=== PATIENT | male | born 1975 | race Caucasian/White ===

== ENCOUNTER 2017-01-18 19:27 | Inpatient (IN) | payer BC ==
[~2017-01-18] VITALS: Ht 180.3 cm; Wt 69.5 kg
[~2017-01-18 19:27] MED LIST: BNC20 PO; DYZ PO; METO1TAB69 PO; POTA10CA28 PO
[2017-01-18] MEDS ORDERED: SODIUM CHLORIDE 0.9% 1000ML 1,000 ML IV STA ×2 (20:18→20:27)
[2017-01-18 20:59] LABS: COMPLETE YES; EOS % 0.2 %; HEMATOCRIT 30.7 % (42-52); IG% 0.2 %; LYMPH % 14.3 %; LYMPH ABS # 0.74 K/uL (1.2-3.4); MEAN CORPUSCULAR HEMOGLOBIN 34.4 pg (25-34); MEAN CORPUSCULAR HGB CONC 36.2 g/dl (32-36); MEAN PLATELET VOLUME 10.8 fL (7.4-10.4); MONO % 10.8 %; NEUT % 74.5 %; PLATELET COUNT 126 K/uL (130-400); RED BLOOD COUNT 3.23 M/uL (4.7-6.1); WHITE BLOOD COUNT 5.19 K/uL (4.8-10.8)
[2017-01-18 21:19] LABS: BUN/CREATININE RATIO 12.3 (10-20); CALCIUM 8.2 mg/dl (8.5-10.1); CREATININE 0.82 mg/dl (0.60-1.40); POTASSIUM 3.3 mmol/L (3.5-5.1)
[2017-01-18] MEDS ORDERED: DIPH25CA65 PO (21:19)
[2017-01-18] MEDS ORDERED: SIMV20TA2 PO (21:19)
[2017-01-18] MEDS ORDERED: LABE1TAB28 PO (21:19)
[2017-01-18] MEDS ORDERED: OLME40TA33 PO (21:19)
[2017-01-18] MEDS ORDERED: LORA-741 PO (21:19)
[2017-01-18] MEDS ORDERED: LORAZEPAM 2 MG/ML 1 ML VIAL IV STA (22:10)
[2017-01-18] MEDS ORDERED: ZOLPIDEM TARTRATE 5 MG TAB PO PRN (22:15)
[2017-01-18] MEDS ORDERED: POTASSIUM CITRATE 10 MEQ TAB PO ONE (22:15)
[2017-01-18] MEDS ORDERED: ONDANSETRON INJ 2 MG/ML 2 ML VIAL IV PRN (22:15)
[2017-01-18] MEDS ORDERED: LORAZEPAM 2 MG/ML 1 ML VIAL IV PRN (22:15)
[2017-01-18] MEDS ORDERED: ALUMINUM/MAGNESIUM/SIMETH (MAALOX MAX) 30 ML UDC PO PRN (22:15)
[2017-01-18] MEDS ORDERED: METOPROLOL TARTRATE 1 MG/ML VIAL IV PRN (22:15)
[2017-01-18] MEDS ORDERED: THIAMINE HCL 100 MG TAB PO ONE (22:30)
--- NOTE | 2017-01-18 22:47 | History and Physical ---
History & Physical Date & Time of Service: Jan 18, 2017 at 22:29 Chief Complaint: Fainting, Dr Referred For Iv Fluids Primary Care Physician: No Doctor, Assigned History of Present Illness Source: patient, family This is a 41 yo m with a history of HTN and alcohol abuse that is presenting to the ED with presyncopal episodes upon standing x 2 weeks and N&V x 1 week. 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 He notes that when he typically is under stress he stops eating and drinking completely and will only drink beer. He states that he normally drinks 5-6 beers in a day however since this stress started he has been drinking 10+ beers/ day. Over the past two weeks he has been having almost daily presyncopal episodes in particularly when he is getting up out of bed. He had two while at work and the second was noticed by his boss and he was told to be cleared from a physician to work before he could return to work. He went to the PCP today where lab work was done and as his blood pressure was low , they decreased his bp medications. He was contacted by the PCP when labs returned as they reflected hyponatremia and transaminitis and he was told to go to the ED for further evaluation. In the ED he was evaluated and found to be critically hyponatremic, thrombocytopenic and anemic. He was started on NSS @ 125cc/h in the ED. He currently denies any pain in his abdomen and Nausea has subsided with ondansetron. He denies ever having any chest pain or palpitations with the presyncopal episodes. He denies any change in urine or bowel habits nor any blood in his stool. Past Medical/Surgical History Medical Problems: (1) Hypertension Status: Chronic Family History Cancer Heart disease Hypertension Kidney disease Kidney stones Social History Smoking Status: Never Smoker Smokeless Tobacco Use: No Alcohol Use: heavy Drug Use: none Marital Status: Housing status: lives with family Occupational Status: employed Multi-Drug Resistant Organisms History of MDRO: No Allergies Coded Allergies: No Known Allergies (Unverified , 01/18/17) Home Medications Scheduled Labetalol (Normodyne), 0.5 TAB PO BID Lorazepam (Ativan), 0.5 MG PO PRN Olmesartan Medoxomil (Olmesartan Medoxomil), 1 TAB PO DAILY Simvastatin (Zocor), 20 MG PO QPM Scheduled PRN Diphenhydramine Hcl (Benadryl Allergy), 1-2 CAP PO HS PRN for Sleep Review of Systems Constitutional: No fever Eyes: No worsening of vision ENT: No hearing loss Respiratory: No cough, No sputum, No wheezing, No shortness of breath, No dyspnea on exertion, No dyspnea at rest Cardiovascular: No chest pain, No palpitations Abdomen: + nausea, + vomiting, No pain, No diarrhea, No constipation, No GI bleeding Musculoskeletal: No joint pain, No muscle pain Genitourinary - Male: No hematuria, No dysuria Neurologic: + weakness, + problem reported (presyncope/ dizziness), No numbness /tingling, No balance problems Psychiatric: No depression symptoms Endocrine: + fatigue Hematologic / Lymphatic: No abnormal bleeding/bruising Integumentary: No rash Physical Exam Vital Signs Date Time Temp Pulse Resp B/P (MAP) Pulse Ox O2 Delivery O2 Flow Rate FiO2 01/18/17 19:38 37.0 100 18 103/61 95 Room Air General Appearance: no apparent distress, + thin Head: normocephalic, atraumatic Eyes: normal inspection, + pertinent finding (erythematous conjunctiva) ENT: normal ENT inspection Neck: supple Respiratory/Chest: normal breath sounds, no respiratory distress, no accessory muscle use Cardiovascular: regular rate, rhythm, no murmur, normal peripheral pulses Abdomen/GI: normal bowel sounds, non tender, soft Back: normal inspection, no CVA tenderness Extremities/Musculoskelatal: normal inspection, no calf tenderness, no pedal edema, normal range of motion Neurologic/Psych: alert, normal mood/affect, oriented x 3 Skin: normal color, warm/dry, no rash Lymphatic: no adenopathy Diagnostics Laboratory Results Results Past 24 Hours Test 01/18/17 20:38 01/18/17 22:00 01/18/17 22:07 01/18/17 22:11 Range/Units White Blood Count 5.19 4.8-10.8 K/uL Red Blood Count 3.23 4.7-6.1 M/uL Hemoglobin 11.1 14.0-18.0 g/dL Hematocrit 30.7 42-52 % Mean Corpuscular Volume 95.0 80-100 fL Mean Corpuscular Hemoglobin 34.4 25-34 pg Mean Corpuscular Hemoglobin Concent 36.2 32-36 g/dl Platelet Count 126 130-400 K/uL Mean Platelet Volume 10.8 7.4-10.4 fL Neutrophils (%) (Auto) 74.5 % Lymphocytes (%) (Auto) 14.3 % Monocytes (%) (Auto) 10.8 % Eosinophils (%) (Auto) 0.2 % Basophils (%) (Auto) 0.0 % Neutrophils # (Auto) 3.87 1.4-6.5 K/uL Lymphocytes # (Auto) 0.74 1.2-3.4 K/uL Monocytes # (Auto) 0.56 0.11-0.59 K/uL Eosinophils # (Auto) 0.01 0-0.5 K/uL Basophils # (Auto) 0.00 0-0.2 K/uL RDW Standard Deviation 42.2 36.4-46.3 fL RDW Coefficient of Variation 12.2 11.5-14.5 % Immature Granulocyte % (Auto) 0.2 % Immature Granulocyte # (Auto) 0.01 0.00-0.02 K/uL Sodium Level 114 136-145 mmol/L Potassium Level 3.3 3.5-5.1 mmol/L Chloride Level 72 98-107 mmol/L Carbon Dioxide Level 28 21-32 mmol/L Anion Gap 13.0 3-11 mmol/L Blood Urea Nitrogen 10 7-18 mg/dl Creatinine 0.82 0.60-1.40 mg/dl Est Creatinine Clear Calc Drug Dose 120.8 ml/min Estimated GFR () 129.1 Estimated GFR (Non- 111.4 BUN/Creatinine Ratio 12.3 10-20 Random Glucose 108 70-99 mg/dl Osmolality 279 280-300 mOsm/kg Calcium Level 8.2 8.5-10.1 mg/dl Total Bilirubin 2.6 0.2-1 mg/dl Direct Bilirubin 1.7 0-0.2 mg/dl Aspartate Amino Transf (AST/SGOT) 423 15-37 U/L Alanine Aminotransferase (ALT/SGPT) 211 12-78 U/L Alkaline Phosphatase 172 45-117 U/L Total Protein 7.7 6.4-8.2 gm/dl Albumin 3.2 3.4-5.0 gm/dl Ethyl Alcohol mg/dL 160.0 0-3 mg/dl Test 01/18/17 22:13 01/18/17 22:27 Range/Units Impression Assessment and Plan This is a 41 yo m that is suffering from hyponatremia and presyncopal episodes most likely secondary to potomania Hyponatremia secondary to potomania vs dehydration - will change fluids to D5NSS @ 100cc/h considering the patient's history of alcohol use - BMP q3h until sodium is 120 and then increase interval to q8h until WNL - tele admission Presyncopal episodes - cardiac vs dehydration - tele admission to assess for potential arrhythmias - ekg - IVF as above Hypokalemia secondary to N&V - supplemented with 40 meq in ED - will recheck with BMP - also ordered phosphorous and magnesium as this can be depleted with chronic alcohol use/dehydration Anemia secondary to vitamin def vs acute blood loss - most likely secondary to vit def; check folate, Vit B12 and iron levels - Hemoccult to r/o GI source Thrombocytopenia most likely secondary to chronic alcohol use - will follow however this may very well be chronic in nature Transaminitis secondary to alcohol use - AST> ALT which is reflective of alcohol use - if improvement with cessation of alcohol will defer imaging - consider USG if no improvement - Hepatitis panel to r/o Alcohol abuse - thiamine and folate in ED PO - Daily banana bag - alcohol withdrawal protocol HTN - for now will hold labetalol and Benicar - Metoprolol 5 mg IV for HR > 120 and systolic > 180 DVT prophylaxis - in light of thrombocytopenia will hold chemical prophylaxis, SCD Resident Physician Supervision Note: I was present with Dr. Asher during the history and exam. I discussed the case with the resident and agree with the findings and plan as documented in the note. Any exceptions or clarifications are listed here: 41 y/o M Hx ETOH abuse - presented with N/V and near-syncope Had not ingested food for several days - does admit to approx 10 beers qdaily Several lab abnormalities on arrival inc hypoK and an Na of 114 OE AAO x 3 S1,2 R CTAB NT, ND No CCE P: IVF - trend BMP ETOH withdrawal protocol will need cessation counseling We will monitor on telemetry considering near syncope and sever hypoNa Above discussed with pt and resident Documented By: Ezequiel Ennis Level of Care Telemetry Resuscitation Status FULL RESUSCITATION VTE Prophylaxis VTE Risk Assessment Done? Y/N: Yes Risk Level: Moderate Given or contraindicated: SCD's Social Service Consult None Apply Additional Copies To Ruben Zhang M.D.
[2017-01-18 23:16] VITALS: BP 124/81; PULSE 87; TEMP 37; O2SAT 97; Ht 180.3 cm; Wt 69.5 kg
--- NOTE | 2017-01-18 23:16 | EMERGENCY ROOM VISIT NOTE ---
History Report prepared by Nevin: Allyssa Snell Under the Supervision of: Dr. Gonzalo Reyez D.O. First contact with patient: 20:13 Chief Complaint: SYNCOPE Stated Complaint: FAINTING, DR REFERRED FOR IV FLUIDS Nursing Triage Summary: Pt reports 3 episodes of near syncope. Lack of apetite, vmoiting, dizziness. seen at [facility] office today, had bloodwork. showed "electrolytes off and dehydration". Hx ETOH. reports a couple beers History of Present Illness The patient is a 41 year old male who presents to the Emergency Room with complaints of persistent lightheadedness and dizziness that began a week and a half ago. The patient states that recently he has had a lack of appetite and a decrease in fluid intake. He states that he recently has been stressed at work. The patient states that this morning he had blood work done at his PCP's office. The patient's states that the patient's blood work revealed dehydration and electrolyte abnormalities. She additionally notes that the patient had a normal EKG performed. The patient's states that the patient has a history of hypertension, but notes that the patient was found to be hypotensive today at his PCP's office. She states that the patient has had multiple near syncopal episodes over the last week and a half and states that he cannot go back to work until he has clearance from a doctor. The patient states that he drinks approximately 2-6 alcohol beverages daily. He additionally reports vomiting intermittently over the past several days. Source of History: patient, spouse/significant other () Onset: week and a half ago Position: other (global) Quality: other (lightheadedness and dizziness) Timing: other (persistent) Associated Symptoms: + vomiting Note: Associated Symptoms: near syncopal episodes Review of Systems See HPI for pertinent positives & negatives. A total of 10 systems reviewed and were otherwise negative. Past Medical & Surgical Medical Problems: (1) Hypertension (2) Hypokalemia (3) Hyponatremia Family History Cancer Heart disease Hypertension Kidney disease Kidney stones Social History Smoking Status: Never Smoker Smokeless Tobacco Use: Yes Alcohol Use: heavy Marital Status: Housing Status: lives with family Occupation Status: employed Current/Historical Medications Scheduled Labetalol (Normodyne), 0.5 TAB PO BID Lorazepam (Ativan), 0.5 MG PO PRN Olmesartan Medoxomil (Olmesartan Medoxomil), 1 TAB PO DAILY Simvastatin (Zocor), 20 MG PO QPM Scheduled PRN Diphenhydramine Hcl (Benadryl Allergy), 1-2 CAP PO HS PRN for Sleep Allergies Coded Allergies: No Known Allergies (Unverified , 01/18/17) Physical Exam Vital Signs Date Time Temp Pulse Resp B/P (MAP) Pulse Ox O2 Delivery O2 Flow Rate FiO2 01/18/17 22:23 101 18 131/87 98 Room Air 01/18/17 19:38 37.0 100 18 103/61 95 Room Air Physical Exam CONSTITUTIONAL/VITAL SIGNS: Reviewed / noted above. GENERAL: Non-toxic in appearance. INTEGUMENTARY: Warm, dry, and [place]. HEAD: Normocephalic. EYES: without scleral icterus or trauma. ENT/OROPHARYNX: clear and moist. LYMPHADENOPATHY/NECK: Is supple without lymphadenopathy or meningismus. RESPIRATORY: Lungs clear and equal. CARDIOVASCULAR: Regular rate and rhythm. GI/ABDOMEN: Soft and nontender. No organomegaly or pulsatile mass. No rebound or guarding. Normal bowel sounds. EXTREMITIES: Warm and well perfused. BACK: No CVA tenderness. NEUROLOGICAL: Intact without focal deficits. PSYCHIATRIC: normal affect. MUSCULOSKELETAL: Normally developed with good muscle tone. Medical Decision & Procedures Laboratory Results 01/18/17 20:38 Red Blood Count 3.23, Mean Corpuscular Volume 95.0, Mean Corpuscular Hemoglobin 34.4, Mean Corpuscular Hemoglobin Concent 36.2, Mean Platelet Volume 10.8, Neutrophils (%) (Auto) 74.5, Lymphocytes (%) (Auto) 14.3, Monocytes (%) (Auto) 10.8, Eosinophils (%) (Auto) 0.2, Basophils (%) (Auto) 0.0, Neutrophils # (Auto ) 3.87, Lymphocytes # (Auto) 0.74, Monocytes # (Auto) 0.56, Eosinophils # (Auto ) 0.01, Basophils # (Auto) 0.00 01/18/17 20:38 Test 01/18/17 20:38 01/18/17 22:46 01/18/17 22:53 White Blood Count 5.19 K/uL (4.8-10.8) Red Blood Count 3.23 M/uL (4.7-6.1) Hemoglobin 11.1 g/dL (14.0-18.0) Hematocrit 30.7 % (42-52) Mean Corpuscular Volume 95.0 fL (80-100) Mean Corpuscular Hemoglobin 34.4 pg (25-34) Mean Corpuscular Hemoglobin Concent 36.2 g/dl (32-36) Platelet Count 126 K/uL (130-400) Mean Platelet Volume 10.8 fL (7.4-10.4) Neutrophils (%) (Auto) 74.5 % Lymphocytes (%) (Auto) 14.3 % Monocytes (%) (Auto) 10.8 % Eosinophils (%) (Auto) 0.2 % Basophils (%) (Auto) 0.0 % Neutrophils # (Auto) 3.87 K/uL (1.4-6.5) Lymphocytes # (Auto) 0.74 K/uL (1.2-3.4) Monocytes # (Auto) 0.56 K/uL (0.11-0.59) Eosinophils # (Auto) 0.01 K/uL (0-0.5) Basophils # (Auto) 0.00 K/uL (0-0.2) RDW Standard Deviation 42.2 fL (36.4-46.3) RDW Coefficient of Variation 12.2 % (11.5-14.5) Immature Granulocyte % (Auto) 0.2 % Immature Granulocyte # (Auto) 0.01 K/uL (0.00-0.02) Anion Gap 13.0 mmol/L (3-11) Est Creatinine Clear Calc Drug Dose 120.8 ml/min Estimated GFR () 129.1 Estimated GFR (Non- 111.4 BUN/Creatinine Ratio 12.3 (10-20) Osmolality 279 mOsm/kg (280-300) Calcium Level 8.2 mg/dl (8.5-10.1) Total Bilirubin 2.6 mg/dl (0.2-1) Direct Bilirubin 1.7 mg/dl (0-0.2) Aspartate Amino Transf (AST/SGOT) 423 U/L (15-37) Alanine Aminotransferase (ALT/SGPT) 211 U/L (12-78) Alkaline Phosphatase 172 U/L (45-117) Total Protein 7.7 gm/dl (6.4-8.2) Albumin 3.2 gm/dl (3.4-5.0) Ethyl Alcohol mg/dL 160.0 mg/dl (0-3) Laboratory results as stated above per my review. Medications Administered Medications (Trade) Dose Ordered Sig/Bety Route Start Time Stop Time Status Last Admin Dose Admin Sodium Chloride 1,000 ml @ 125 mls/hr Q8H STAT IV 01/18/17 20:27 01/19/17 04:26 01/18/17 20:50 125 MLS/HR Lorazepam (Ativan Inj) 1 mg NOW STAT IV 01/18/17 22:10 01/18/17 22:11 DC 01/18/17 22:21 1 MG Potassium Citrate (Urocit-K Tab) 40 meq NOW ONCE PO 01/18/17 22:15 01/18/17 22:34 DC 01/18/17 22:54 40 MEQ Thiamine HCl (Vitamin B-1 Tab) 100 mg NOW ONCE PO 01/18/17 22:30 01/18/17 22:34 DC 01/18/17 22:53 100 MG ED Course 2012: Previous medical records were reviewed. The patient was evaluated in room B2. A complete history and physical examination was performed. 2026: Ordered Sodium Chloride 1000 ml @ 125 mls/hr IV. 2136: I discussed the patients case with SILVIA Wylie. He is going to evaluate the patient for further treatment. 2149: I reevaluated the patient and he is doing well. I discussed the exam findings with him and I discussed the treatment plan. He verbalized complete understanding and agreement. He will be evaluated for further treatment. Medical Decision Differentials include: Acute coronary syndrome, myocardial infarction, CVA, TIA , anemia, infection, pneumonia, UTI, pyelonephritis, poor nutrition, dehydration , electrolyte disturbance, and hypoglycemia. Medication Reconciliation: I attest that I have personally reviewed the patient' s current medication list. Blood pressure Screening: Patient was found to have normal blood pressure on screening and does not require follow-up. This is a 41-year-old male who presents to the ED with a chief complaint of abnormal labs. The patient had some outpatient laboratory studies today that really revealed hyponatremia and dehydration, per the patient. The patient reports that he is been under a lot of stress at work recently. Over the past couple of weeks, he has not been eating or drinking much. He has been consuming alcohol. He states that he drinks between 2 and 6 beers per day. The patient also has been recently intermittently vomiting over the past 4 days. He has become lightheaded and passing out over the past few days as well. His vital signs are normal. His physical exam does not reveal any obvious abnormalities. Laboratory studies reveal potassium of 3.3. His sodium is 114. LFTs are slightly elevated. This is likely related to alcohol consumption. The patient's CBC was unremarkable. Blood alcohol level is 160. The patient was treated with normal saline 150 mL per hour. He was given some IV Ativan for a little anxiety/possibly withdrawal. I spoke with the hospitalist, who will see the patient for further inpatient evaluation and care.. Consults Time Called: 2135 Consulting Physician: SILVIA Wylie Returned Call: [phone] I discussed the patients case with SILVIA Wylie. He is going to evaluate the patient for further treatment. Impression Primary Impression: Hyponatremia Additional Impressions: Transaminitis Alcohol abuse Scribe Attestation The scribe's documentation has been prepared under my direction and personally reviewed by me in its entirety. I confirm that the note above accurately reflects all work, treatment, procedures, and medical decision making performed by me. Departure Information Dispostion Being Evaluated By Hospitalist Problem Qualifiers
[2017-01-18 23:19] LABS: PARTIAL THROMBOPLASTIN RATIO 1.1; PROTHROMBIN TIME (PATIENT) 11.1 SECONDS (9.0-12.0)
[2017-01-18 23:26] LABS: MAGNESIUM 1.9 mg/dl (1.8-2.4)
[2017-01-19] VITALS (9 sets, daily range): BP systolic 108–129; BP diastolic 70–85; PULSE 81–111; TEMP 36.9–37.2; O2SAT 94–98
[2017-01-19 00:33] LABS: BUN/CREATININE RATIO 11.9 (10-20); CALCIUM 8.2 mg/dl (8.5-10.1); CREATININE 0.86 mg/dl (0.60-1.40); POTASSIUM 3.8 mmol/L (3.5-5.1)
[2017-01-19] MEDS: D5W AND NSS 1,000 ML IV SCH ×2 (00:45→17:00)
[2017-01-19 04:41] LABS: BASO % 0.2 %; BASO ABS # 0.01 K/uL (0-0.2); COMPLETE YES; IG% 0.2 %; MEAN CELL VOLUME 94.4 fL (80-100); MEAN CORPUSCULAR HEMOGLOBIN 35.3 pg (25-34); MEAN CORPUSCULAR HGB CONC 37.4 g/dl (32-36); MEAN PLATELET VOLUME 10.7 fL (7.4-10.4); MONO % 11.7 %; NEUT % 71.9 %; PLATELET COUNT 101 K/uL (130-400); RED BLOOD COUNT 2.86 M/uL (4.7-6.1); WHITE BLOOD COUNT 4.01 K/uL (4.8-10.8)
[2017-01-19 05:10] LABS: CREATININE 0.77 mg/dl (0.60-1.40); POTASSIUM 3.6 mmol/L (3.5-5.1)
[2017-01-19 05:11] LABS: THYROID STIMULATING HORMONE 3.45 uIu/ml (0.300-4.500)
[2017-01-19] MEDS: MULTI-VITAMIN INFUSION INJ 10 ML, THIAMINE HCL INJ 100 MG, FoLIC ACID INJ 1 MG in SODIU... IV SCH (07:36)
[2017-01-19] MEDS: FoLIC ACID TAB 400 MCG TAB PO SCH (07:37)
[2017-01-19 08:50] LABS: BUN/CREATININE RATIO 9.6 (10-20); CALCIUM 8.3 mg/dl (8.5-10.1); CREATININE 0.89 mg/dl (0.60-1.40); POTASSIUM 3.4 mmol/L (3.5-5.1)
[2017-01-19] MEDS ORDERED: LORAZEPAM 2 MG/ML 1 ML VIAL IV PRN (09:45)
[2017-01-19] MEDS ORDERED: GABAPENTIN 800 MG TAB PO SCH (09:45)
[2017-01-19] MEDS ORDERED: LORAZEPAM 1 MG TAB PO PRN (09:45)
[2017-01-19] MEDS: LORAZEPAM 2 MG/ML 1 ML VIAL IV PRN ×3 (09:58→15:46)
[2017-01-19] MEDS ORDERED: GABAPENTIN 800MG LOADING DOSE PO SCH (10:00)
[2017-01-19] MEDS ORDERED: POTASSIUM CHLORIDE 20 MEQ TABCR PO STA (11:13)
[2017-01-19] MEDS ORDERED: CHLORDIAZEPOXIDE 25 MG CAP PO STA (11:32)
--- NOTE | 2017-01-19 12:10 | Medical Student: [facility] ---
Med Student Progress Note Date of Service Jan 19, 2017. Subjective Pt evaluation today including: conversation w/ patient, conversation w/ family ( at bedside), physical exam, chart review, lab review Pain: patient denies PO Intake: 5046 total, 2445 oral 2601 IV Voiding: no voiding problems, no incontinence Reilly Mayo is a 41 yo male, with PMHx of HTN, complaining of lightheadedness with 4 episodes of presyncope in the last 2 weeks. Patient states he had a stressor at work 2 weeks ago, and he preceded to stop eating (decreased appetite and fluid intake) and self-medicated with alcohol since 01/10/2017. He reports drinking 2-6 beers daily, but recently has been drinking 10+, buying 30- packs a couple times a week. He describes the presyncopal episodes as feeling lightheaded, his legs collapsing, and needing to sit/lay on floor for a few minutes before he can stand back up; he denies LOC. He reports two episodes at work (01/12 and 01/16), and two episodes at home (01/17, 01/18). He was told he needed to be medically cleared by his boss before returning to work, so he went to his PCP on yesterday, who referred him to the ED immediately after seeing his sodium and potassium levels. He reports associated symptoms of nausea/ vomiting since 01/14, which have resolved since in-patient, except for one episode of nausea last night, relief with Zofran. He also notes diarrhea 3x a week for the last 3 weeks, describing it as "dark brown," but denies blood or mucus. Other symptoms reported include stiff leg muscles when trying to ambulate and an intermittent throat clearing feeling. His states he has not been taking lorazepam recently, but took two 1.5mg pills yesterday prior to arrival. He reports withdrawing from alcohol once in his distant past, but denies seizures. He denies shortness of breath, chest pain, palpitations, vertigo, numbness/tingling, fever, and chills. Review of Systems Constitutional: + problem reported (decreased appetite), No fever, No chills, No sweats, No weakness, No fatigue Eyes: No worsening of vision, No eye pain, No redness ENT: No hearing loss, No nasal symptoms, No sore throat Respiratory: + cough (throat clearing), No sputum, No wheezing, No shortness of breath Cardiac: No chest pain, No edema Abdomen: + nausea, + diarrhea, No pain, No vomiting (resolved), No constipation Musculoskeletal: + muscle pain (stiff/achy leg muscles with ambulation), + problem reported (trouble ambulating secondary to weakness in legs), No joint pain Male : No dysuria, No urinary frequency, No incontinence Neurologic: + weakness, + balance problems, + problem reported (lightheaded), No memory loss, No numbness/tingling, No vertigo Psychiatric: + anxiety (stress at work), + substance abuse (alcohol) Endo: + excessive thirst, No fatigue, No excessive urination Skin: No rash, No itch Objective Vital Signs Date Time Temp Pulse Resp B/P (MAP) Pulse Ox O2 Delivery O2 Flow Rate FiO2 01/19/17 10:26 36.9 111 20 116/75 (89) 95 Room Air 01/19/17 08:00 Room Air 01/19/17 07:00 37.0 100 18 128/85 (99) 95 Room Air 01/19/17 04:00 94 Room Air 01/19/17 03:55 37.2 92 18 128/80 (96) 94 Room Air 01/19/17 00:01 97 Room Air 01/18/17 23:16 37.0 87 18 124/81 97 Room Air 01/18/17 22:23 101 18 131/87 98 Room Air 01/18/17 19:38 37.0 100 18 103/61 95 Room Air Physical Exam General Appearance: WD/WN, + moderate distress, + pertinent finding (picking at IV site, easy to redirect) Eyes: bilateral eyes normal inspection, bilateral eyes PERRL, bilateral eyes EOMI ENT: normal ENT inspection, hearing grossly normal (baseline hearing loss on right), pharynx normal Neck: supple, no adenopathy Respiratory/Chest: chest non-tender, lungs clear, normal breath sounds, no respiratory distress, no accessory muscle use Cardiovascular: regular rate, rhythm, no edema, no murmur Abdomen: normal bowel sounds, non tender, soft Extremities: non-tender, normal inspection, no pedal edema, no calf tenderness , + pertinent finding (intention tremor when reaching for water cup) Neurologic/Psychiatric: change agent II-XII nml as tested, oriented x 3, + abnormal gait (unable to stand out of bed to walk 2 feet to [facility], secondary to weakness/ shaky) Skin: normal color, warm/dry, no rash Lymphatic: no adenopathy Laboratory Results Last 24 Hours Test 01/18/17 20:38 01/18/17 22:46 01/18/17 22:53 01/18/17 23:50 White Blood Count 5.19 K/uL Red Blood Count 3.23 M/uL Hemoglobin 11.1 g/dL Hematocrit 30.7 % Mean Corpuscular Volume 95.0 fL Mean Corpuscular Hemoglobin 34.4 pg Mean Corpuscular Hemoglobin Concent 36.2 g/dl Platelet Count 126 K/uL Mean Platelet Volume 10.8 fL Neutrophils (%) (Auto) 74.5 % Lymphocytes (%) (Auto) 14.3 % Monocytes (%) (Auto) 10.8 % Eosinophils (%) (Auto) 0.2 % Basophils (%) (Auto) 0.0 % Neutrophils # (Auto) 3.87 K/uL Lymphocytes # (Auto) 0.74 K/uL Monocytes # (Auto) 0.56 K/uL Eosinophils # (Auto) 0.01 K/uL Basophils # (Auto) 0.00 K/uL RDW Standard Deviation 42.2 fL RDW Coefficient of Variation 12.2 % Immature Granulocyte % (Auto) 0.2 % Immature Granulocyte # (Auto) 0.01 K/uL Prothrombin Time 11.1 SECONDS Prothromb Time International Ratio 1.0 Activated Partial Thromboplast Time 27.4 SECONDS Partial Thromboplastin Ratio 1.1 Sodium Level 114 mmol/L Potassium Level 3.3 mmol/L Chloride Level 72 mmol/L Carbon Dioxide Level 28 mmol/L Anion Gap 13.0 mmol/L Blood Urea Nitrogen 10 mg/dl Creatinine 0.82 mg/dl Est Creatinine Clear Calc Drug Dose 120.8 ml/min Estimated GFR () 129.1 Estimated GFR (Non- 111.4 BUN/Creatinine Ratio 12.3 Random Glucose 108 mg/dl Osmolality 279 mOsm/kg Calcium Level 8.2 mg/dl Phosphorus Level 2.0 mg/dl Magnesium Level 1.9 mg/dl Total Bilirubin 2.6 mg/dl Direct Bilirubin 1.7 mg/dl Aspartate Amino Transf (AST/SGOT) 423 U/L Alanine Aminotransferase (ALT/SGPT) 211 U/L Alkaline Phosphatase 172 U/L Total Protein 7.7 gm/dl Albumin 3.2 gm/dl Ethyl Alcohol mg/dL 160.0 mg/dl Hepatitis B Surface Antigen NEG Hepatitis C Antibody NEG Urine Osmolality 284 mOms/kg Urine Random Sodium 13 mEq/L Test 01/18/17 23:57 01/19/17 04:21 01/19/17 04:22 01/19/17 08:01 Sodium Level 114 mmol/L 117 mmol/L 118 mmol/L Potassium Level 3.8 mmol/L 3.6 mmol/L 3.4 mmol/L Chloride Level 73 mmol/L 78 mmol/L 79 mmol/L Carbon Dioxide Level 31 mmol/L 28 mmol/L 28 mmol/L Anion Gap 10.0 mmol/L 11.0 mmol/L 10.0 mmol/L Blood Urea Nitrogen 10 mg/dl 9 mg/dl 9 mg/dl Creatinine 0.86 mg/dl 0.77 mg/dl 0.89 mg/dl Est Creatinine Clear Calc Drug Dose 112.9 ml/min 126.1 ml/min 109.1 ml/min Estimated GFR () 126.6 132.5 124.8 Estimated GFR (Non- 109.2 114.3 107.7 BUN/Creatinine Ratio 11.9 12.0 9.6 Random Glucose 87 mg/dl 86 mg/dl 96 mg/dl Calcium Level 8.2 mg/dl 8.0 mg/dl 8.3 mg/dl White Blood Count 4.01 K/uL Red Blood Count 2.86 M/uL Hemoglobin 10.1 g/dL Hematocrit 27.0 % Mean Corpuscular Volume 94.4 fL Mean Corpuscular Hemoglobin 35.3 pg Mean Corpuscular Hemoglobin Concent 37.4 g/dl Platelet Count 101 K/uL Mean Platelet Volume 10.7 fL Neutrophils (%) (Auto) 71.9 % Lymphocytes (%) (Auto) 15.0 % Monocytes (%) (Auto) 11.7 % Eosinophils (%) (Auto) 1.0 % Basophils (%) (Auto) 0.2 % Neutrophils # (Auto) 2.88 K/uL Lymphocytes # (Auto) 0.60 K/uL Monocytes # (Auto) 0.47 K/uL Eosinophils # (Auto) 0.04 K/uL Basophils # (Auto) 0.01 K/uL RDW Standard Deviation 42.6 fL RDW Coefficient of Variation 12.4 % Immature Granulocyte % (Auto) 0.2 % Immature Granulocyte # (Auto) 0.01 K/uL Vitamin B12 Level 1176 pg/mL Folate 5.26 ng/mL Iron Level 173 mcg/dl Thyroid Stimulating Hormone (TSH) 3.450 uIu/ml Test 01/19/17 11:36 Medications Medications Administered Medications (Trade) Dose Ordered Sig/Bety Route Start Time Stop Time Status Last Admin Dose Admin Sodium Chloride 1,000 ml @ 125 mls/hr Q8H STAT IV 01/18/17 20:27 01/18/17 23:43 DC 01/18/17 20:50 125 MLS/HR Ondansetron HCl (Zofran Inj) 4 mg Q6H PRN IV 01/18/17 22:15 02/17/17 22:14 01/19/17 00:46 4 MG Lorazepam (Ativan Inj) 1 mg ONE PRN IV 01/18/17 22:15 01/19/17 07:47 DC 01/19/17 07:47 1 MG Lorazepam (Ativan Inj) 1 mg NOW STAT IV 01/18/17 22:10 01/18/17 22:11 DC 01/18/17 22:21 1 MG Dextrose/Sodium Chloride 1,000 ml @ 100 mls/hr Q10H IV 01/18/17 22:15 02/17/17 22:14 01/19/17 00:45 100 MLS/HR Potassium Citrate (Urocit-K Tab) 40 meq NOW ONCE PO 01/18/17 22:15 01/18/17 22:34 DC 01/18/17 22:54 40 MEQ Thiamine HCl (Vitamin B-1 Tab) 100 mg NOW ONCE PO 01/18/17 22:30 01/18/17 22:34 DC 01/18/17 22:53 100 MG Folic Acid (Folvite Tab) 400 mcg QAM PO 01/19/17 09:00 02/18/17 08:59 01/19/17 07:37 400 MCG Multivitamins 10 ml/Thiamine HCl 100 mg/Folic Acid 1 mg/Sodium Chloride 1,011.2 ml @ 100 mls/ hr Q24H IV 01/19/17 09:00 02/18/17 08:59 01/19/17 07:36 100 MLS/HR Lorazepam (Ativan Inj) PRN Dosing -Active Protocol Q1H PRN IV 01/19/17 09:45 02/18/17 09:44 01/19/17 10:47 1 MG Gabapentin (Neurontin Cap) 800 mg TODAY@1000 PO 01/19/17 10:00 01/19/17 10:01 DC 01/19/17 10:25 800 MG Gabapentin (Neurontin Cap) 400 mg Q6H PO 01/19/17 14:00 01/19/17 20:01 01/19/17 13:44 400 MG Potassium Chloride (Klor-Con Tab) 40 meq NOW STAT PO 01/19/17 11:13 01/19/17 11:14 DC 01/19/17 11:38 40 MEQ Chlordiazepoxide (Librium Cap) 50 mg NOW STAT PO 01/19/17 11:32 01/19/17 11:33 DC 01/19/17 11:38 50 MG Potassium Phosphate 30 mmol/ Sodium Chloride 510 ml @ 88 mls/hr TODAY@1230 IV 01/19/17 12:30 01/19/17 18:18 01/19/17 12:37 88 MLS/HR Assessment and Plan Assessment and Plan: Reilly Mayo is a 41 yo male with PMHx of HTN, who presented to the ED complaining of abnormal labs (low sodium/potassium) and lightheadedness with presyncopal episodes x1.5 weeks. He has been drinking 10+ beers/day with little food x 01/10/2017. He scored 2/4 on CAGE criteria. Hyponatremia, severe, likely secondary to beer potomania - Repeat sodium levels q3hrs (114, 114, 117, 118, 120) - IV fluids (D5W) 100ml/hr - Consult nephrology - Admit to telemetry - Check urine osmoles (284, 107), urine sodium (13, 11), and urine potassium ( 9.9) - Check renal profile. BUN: 10, 9, 9, 8. Cr: .86, .95, .86, .77 Hypokalemia - Repeat potassium levels (3.3, 3.8, 3.6, 3.8, 3.3). - Magnesium level: 1.9 - Give Potassium Phosphate 30 mmol/Sodium Chloride Presyncopal episodes - Admit to telemetry and monitor. D5W fluids as noted above. - EKG results: "Normal sinus rhythm, Normal ECG, When compared with ECG of Dec-2003 20:21, No significant change was found." Transaminitis - Check liver profile. LFTs: AST (423, 389), ALT (211, 196), alkaline phosphatase (172, 140). Continue to monitor as withdraws from alcohol. AST>ALT (2:1) indicates alcohol use - Hepatitis B and C negative Alcohol abuse, acute on chronic - Chlordiazepoxide (Librium Cap) 50mg, Gabapentin (Neurontin Cap) 400mg, Ondansetron HCl (Zofran Inj) 4mg, per alcohol withdrawal protocol - Vitamin replacement: Folic Acid (Folvite Tab) 400 mcg QAM PO, Multivitamins 10 ml/Thiamine HCl 100 mg/Folic Acid 1 mg/Sodium Chloride 1,011.2 ml @ 100 mls/ hr Q24hrs - Low hemoglobin (11.1 and 10.1) and low platelets (126, 101) likely dilutional/ secondary to alcohol use/vitamin deficiency. Continue to monitor. HTN, chronic - Hypotensive on arrival, hold home medications (Olmesartan Medoxomil 40 Mg Tab 1 Tab PO DAILY, Normodyne (Labetalol HCl) 200 Mg Tab 0.5 Tab PO BID) - Monitor BP's (103/61, 131/87, 124/81, 128/80, 128/85, 116/75) Dyslipidemia, chronic - Continue home medication (Zocor (Simvastatin) 20 Mg Tab 20 Mg PO QPM) DVT prophylaxis - Platelets at 101, hold heparin at this time, use SCDs Continued [facility] stay due to: ambulation difficulties
[2017-01-19] MEDS ORDERED: POTASSIUM PHOS 3 MMOL/1 ML INFUSION IV STA (12:14)
[2017-01-19] MEDS ORDERED: POTASSIUM PHOSPHATE INJ 30 MMOL in SODIUM CHLORIDE 0.9% 500ML 500 ML IV SCH (12:30)
[2017-01-19] MEDS: GABAPENTIN 400MG Q6H DOSE PO SCH ×2 (13:44→20:14)
[2017-01-19 13:46] LABS: BUN/CREATININE RATIO 8.7 (10-20); CALCIUM 8.6 mg/dl (8.5-10.1); CREATININE 0.95 mg/dl (0.60-1.40); PHOSPHORUS 1.8 mg/dl (2.5-4.9); POTASSIUM 3.5 mmol/L (3.5-5.1)
[2017-01-19 16:43] LABS: BUN/CREATININE RATIO 9.6 (10-20); CALCIUM 8.4 mg/dl (8.5-10.1); CREATININE 0.82 mg/dl (0.60-1.40); POTASSIUM 3.9 mmol/L (3.5-5.1)
--- NOTE | 2017-01-19 17:20 | Nephrology Consultation ---
Nephrology Consultation Date & Providers Date of Consultation: Jan 19, 2017. Primary Care Provider: No Doctor, Assigned Referring Provider: Reason for Consultation Hyponatremia History of Present Illness Mr. Reilly Mayo is a 41 year-old male who was seen in consultation this afternoon for assistance in management of severe hyponatremia. He is on direct observation for encephalopathy and intermittent confusion. His father was also at the bedside during my assessment. Reilly answered most questions appropriately but corrected himself frequently and admitted to being confused over the past few days. Reilly presented to the ED at [facility] yesterday for evaluation of abnormal blood work. Reilly states that his contacted Dr. Zhang due to concerns. He had been drinking heavily for several days. There is a reported history of daily alcohol intake of at least 1-2 beers. For approximately 2 weeks, Reilly has been drinking over 10 beers per day. This accounts for most all of his fluid intake. He was not eating regular meals and overall solute intake is reported as minimal. Within the past 48 hours he developed nausea and vomiting. He was having orthostatic symptoms, presyncope and falls due to inability to balance. He denies any injury. His last alcoholic drink was on the day of admission. Blood alcohol level on admission was recorded at 160 mg/dL. He was placed on direct observation for encephalopathy and confusion. This appears to be improving based on report. An alcohol withdrawal protocol was ordered. Laboratory studies also notable for acute hepatitis with mildly elevated transaminases and bilirubin. There is no reported history of alcohol withdrawal. His reported that he has stopped drinking after similar binges in the past without complications. Past Medical/Surgical History Medical: Hypertension controlled with olmesartan, labetalol Surgical: None reported Allergies Coded Allergies: No Known Allergies (Unverified , 01/18/17) Inpatient Medications Current Inpatient Medications Medications (Trade) Dose Ordered Sig/Bety Route Start Time Stop Time Status Last Admin Dose Admin Al Hydrox/Mg Hydrox/Simethicone (Maalox Max Susp) 15 ml Q4H PRN PO 01/18/17 22:15 02/17/17 22:14 Zolpidem Tartrate (Ambien Tab) 5 mg HSZ PRN PO 01/18/17 22:15 02/17/17 22:14 Ondansetron HCl (Zofran Inj) 4 mg Q6H PRN IV 01/18/17 22:15 02/17/17 22:14 01/19/17 00:46 4 MG Diphenhydramine HCl (Benadryl Cap) 25 mg HS PRN PO 01/18/17 22:15 02/17/17 22:14 Simvastatin (Zocor Tab) 20 mg QPM PO 01/19/17 21:00 02/18/17 20:59 Metoprolol Tartrate (Lopressor Iv) 5 mg Q4H PRN IV 01/18/17 22:15 02/17/17 22:14 Dextrose/Sodium Chloride 1,000 ml @ 100 mls/hr Q10H IV 01/18/17 22:15 02/17/17 22:14 01/19/17 00:45 100 MLS/HR Folic Acid (Folvite Tab) 400 mcg QAM PO 01/19/17 09:00 02/18/17 08:59 01/19/17 07:37 400 MCG Multivitamins 10 ml/Thiamine HCl 100 mg/Folic Acid 1 mg/Sodium Chloride 1,011.2 ml @ 100 mls/ hr Q24H IV 01/19/17 09:00 02/18/17 08:59 01/19/17 07:36 100 MLS/HR Lorazepam (Ativan Tab) PRN Dosing -Active Protocol UD PRN PO 01/19/17 09:45 02/18/17 09:44 Lorazepam (Ativan Inj) PRN Dosing -Active Protocol Q1H PRN IV 01/19/17 09:45 02/18/17 09:44 01/19/17 15:46 1 MG Gabapentin (Neurontin Cap) 400 mg Q6H PO 01/19/17 14:00 01/19/17 20:01 01/19/17 13:44 400 MG Gabapentin (Neurontin Cap) 400 mg Q8H PO 01/20/17 06:00 01/20/17 22:01 Gabapentin (Neurontin Cap) 400 mg Q12H PO 01/21/17 10:00 01/21/17 22:01 Gabapentin (Neurontin Cap) 400 mg Q24H PO 01/22/17 22:00 01/22/17 22:01 Chlordiazepoxide (Librium Cap) 50 mg Q8H PO 01/19/17 20:00 01/20/17 12:01 Chlordiazepoxide (Librium Cap) 25 mg Q8H PO 01/20/17 20:00 01/21/17 12:01 Chlordiazepoxide (Librium Cap) 10 mg Q12H PO 01/22/17 00:00 01/22/17 12:01 Potassium Phosphate 30 mmol/ Sodium Chloride 510 ml @ 88 mls/hr TODAY@1230 IV 01/19/17 12:30 01/19/17 18:18 01/19/17 12:37 88 MLS/HR Family History Cancer Heart disease Hypertension Kidney disease Kidney stones Social History Smoking Status: Never Smoker Smokeless Tobacco Use: Yes Alcohol Use: heavy Drug Use: none Marital Status: Housing Status: lives with family Occupation: employed Review of Systems Psychiatric: + depression symptoms A complete review of systems was performed. Pertinent positives are noted above. All other systems are negative. Physical Exam Date Time Temp Pulse Resp B/P (MAP) Pulse Ox O2 Delivery O2 Flow Rate FiO2 01/19/17 15:24 37.1 92 16 108/70 (83) 95 Room Air 01/19/17 12:00 Room Air 01/19/17 10:26 36.9 111 20 116/75 (89) 95 Room Air 01/19/17 08:00 Room Air 01/19/17 07:00 37.0 100 18 128/85 (99) 95 Room Air 01/19/17 04:00 94 Room Air 01/19/17 03:55 37.2 92 18 128/80 (96) 94 Room Air 01/19/17 00:01 97 Room Air 01/18/17 23:16 37.0 87 18 124/81 97 Room Air 01/18/17 22:23 101 18 131/87 98 Room Air 01/18/17 19:38 37.0 100 18 103/61 95 Room Air General Appearance: no apparent distress, + pertinent finding (well developed) Head: normocephalic, atraumatic Eyes: normal inspection, sclerae normal ENT: hearing grossly normal, pharynx normal, + pertinent finding (small scab on lower lip) Neck: supple, no JVD Respiratory/Chest: lungs clear, no respiratory distress, no accessory muscle use Cardiovascular: regular rate, rhythm, no JVD Abdomen/GI: non tender, soft Extremities/Musculoskelatal: normal inspection, no pedal edema Neurologic/Psych: alert, + depressed affect, + pertinent finding Laboratory Results Last 24 Hours Test 01/18/17 20:38 01/18/17 22:46 01/18/17 22:53 01/18/17 23:50 White Blood Count 5.19 K/uL Red Blood Count 3.23 M/uL Hemoglobin 11.1 g/dL Hematocrit 30.7 % Mean Corpuscular Volume 95.0 fL Mean Corpuscular Hemoglobin 34.4 pg Mean Corpuscular Hemoglobin Concent 36.2 g/dl Platelet Count 126 K/uL Mean Platelet Volume 10.8 fL Neutrophils (%) (Auto) 74.5 % Lymphocytes (%) (Auto) 14.3 % Monocytes (%) (Auto) 10.8 % Eosinophils (%) (Auto) 0.2 % Basophils (%) (Auto) 0.0 % Neutrophils # (Auto) 3.87 K/uL Lymphocytes # (Auto) 0.74 K/uL Monocytes # (Auto) 0.56 K/uL Eosinophils # (Auto) 0.01 K/uL Basophils # (Auto) 0.00 K/uL RDW Standard Deviation 42.2 fL RDW Coefficient of Variation 12.2 % Immature Granulocyte % (Auto) 0.2 % Immature Granulocyte # (Auto) 0.01 K/uL Prothrombin Time 11.1 SECONDS Prothromb Time International Ratio 1.0 Activated Partial Thromboplast Time 27.4 SECONDS Partial Thromboplastin Ratio 1.1 Sodium Level 114 mmol/L Potassium Level 3.3 mmol/L Chloride Level 72 mmol/L Carbon Dioxide Level 28 mmol/L Anion Gap 13.0 mmol/L Blood Urea Nitrogen 10 mg/dl Creatinine 0.82 mg/dl Est Creatinine Clear Calc Drug Dose 120.8 ml/min Estimated GFR () 129.1 Estimated GFR (Non- 111.4 BUN/Creatinine Ratio 12.3 Random Glucose 108 mg/dl Osmolality 279 mOsm/kg Calcium Level 8.2 mg/dl Phosphorus Level 2.0 mg/dl Magnesium Level 1.9 mg/dl Total Bilirubin 2.6 mg/dl Direct Bilirubin 1.7 mg/dl Aspartate Amino Transf (AST/SGOT) 423 U/L Alanine Aminotransferase (ALT/SGPT) 211 U/L Alkaline Phosphatase 172 U/L Total Protein 7.7 gm/dl Albumin 3.2 gm/dl Ethyl Alcohol mg/dL 160.0 mg/dl Hepatitis B Surface Antigen NEG Hepatitis C Antibody NEG Urine Osmolality 284 mOms/kg Urine Random Sodium 13 mEq/L Test 01/18/17 23:57 01/19/17 04:21 01/19/17 04:22 01/19/17 08:01 Sodium Level 114 mmol/L 117 mmol/L 118 mmol/L Potassium Level 3.8 mmol/L 3.6 mmol/L 3.4 mmol/L Chloride Level 73 mmol/L 78 mmol/L 79 mmol/L Carbon Dioxide Level 31 mmol/L 28 mmol/L 28 mmol/L Anion Gap 10.0 mmol/L 11.0 mmol/L 10.0 mmol/L Blood Urea Nitrogen 10 mg/dl 9 mg/dl 9 mg/dl Creatinine 0.86 mg/dl 0.77 mg/dl 0.89 mg/dl Est Creatinine Clear Calc Drug Dose 112.9 ml/min 126.1 ml/min 109.1 ml/min Estimated GFR () 126.6 132.5 124.8 Estimated GFR (Non- 109.2 114.3 107.7 BUN/Creatinine Ratio 11.9 12.0 9.6 Random Glucose 87 mg/dl 86 mg/dl 96 mg/dl Calcium Level 8.2 mg/dl 8.0 mg/dl 8.3 mg/dl White Blood Count 4.01 K/uL Red Blood Count 2.86 M/uL Hemoglobin 10.1 g/dL Hematocrit 27.0 % Mean Corpuscular Volume 94.4 fL Mean Corpuscular Hemoglobin 35.3 pg Mean Corpuscular Hemoglobin Concent 37.4 g/dl Platelet Count 101 K/uL Mean Platelet Volume 10.7 fL Neutrophils (%) (Auto) 71.9 % Lymphocytes (%) (Auto) 15.0 % Monocytes (%) (Auto) 11.7 % Eosinophils (%) (Auto) 1.0 % Basophils (%) (Auto) 0.2 % Neutrophils # (Auto) 2.88 K/uL Lymphocytes # (Auto) 0.60 K/uL Monocytes # (Auto) 0.47 K/uL Eosinophils # (Auto) 0.04 K/uL Basophils # (Auto) 0.01 K/uL RDW Standard Deviation 42.6 fL RDW Coefficient of Variation 12.4 % Immature Granulocyte % (Auto) 0.2 % Immature Granulocyte # (Auto) 0.01 K/uL Vitamin B12 Level 1176 pg/mL Folate 5.26 ng/mL Iron Level 173 mcg/dl Thyroid Stimulating Hormone (TSH) 3.450 uIu/ml Test 01/19/17 12:37 01/19/17 13:45 01/19/17 16:01 Sodium Level 120 mmol/L Potassium Level 3.5 mmol/L Chloride Level 83 mmol/L Carbon Dioxide Level 28 mmol/L Anion Gap 9.0 mmol/L Blood Urea Nitrogen 8 mg/dl Creatinine 0.95 mg/dl Est Creatinine Clear Calc Drug Dose 102.2 ml/min Estimated GFR () 116.4 Estimated GFR (Non- 100.4 BUN/Creatinine Ratio 8.7 Random Glucose 115 mg/dl Calcium Level 8.6 mg/dl Phosphorus Level 1.8 mg/dl Total Bilirubin 2.5 mg/dl Direct Bilirubin 1.6 mg/dl Aspartate Amino Transf (AST/SGOT) 389 U/L Alanine Aminotransferase (ALT/SGPT) 196 U/L Alkaline Phosphatase 140 U/L Total Protein 7.0 gm/dl Albumin 3.0 gm/dl Urine Osmolality 107 mOms/kg Urine Random Sodium 11 mEq/L Urine Random Potassium 9.9 mEq/L Impression (1) Hyponatremia (2) Hypophosphatemia (3) Hypokalemia (4) Alcohol abuse (5) Transaminitis Mr. Reilly Mayo is a 41-year-old male with hypertension and a history of alcohol abuse. He presented with alcohol intoxication and mental status changes. He has a mild hepatitis with a Maddrey's score of 2.2 on presentation. He had severe hyponatremia. Initial clinical presentation consistent with hypovolemic hyponatremia. Oral solute intake was very poor. Serum sodium on admission yesterday evening was 114 mmol/L. It has corrected to 125 mmol/L this afternoon. Reilly has been maintained on 0.9% saline with D5. He was also notably hypokalemic and hypophosphatemic on presentation. He is receiving replacement for these as well as replacement of thiamine, folic acid and general multivitamins. I discussed with the patient and his father the seriousness of his illness. Reilly did exhibit some evidence of symptomatic hyponatremia on presentation. He is at high risk for CPM given his poor nutritional status, low potassium, history of alcohol abuse and underlying liver disease. I would avoid a rate of rapid correction for his dysnatremia and favor a correction rate of 0.5 - 1.0 mmol/h. Potassium and phosphorus should be monitored regularly and replaced as needed. I ordered 30 mmol IV K-phos this afternoon. At this time, it appears that s(Na) has corrected approximately 10 mmol/L in 24 hours which is acceptable. Urine osmolality has dropped to 100. Urine output has increased. Auto-correction is likely to occur unless some free water is provided. Electrolyte free water clearance is high. I favor switching IVF to 0.45% saline at 100 ml/h. The goal would to be to keep this infusion rate at approximately the rate of his urine output. Serum sodium, potassium should be monitored q 4 hours. Reilly will continue to have serial neuro-checks and observational protocol for alcohol withdrawal. Recommendations -- D5 0.45% NaCl @ 100 ml/hr -- Keep rate of correction of sodium at approximately 0.5 mmol/h -- Replete potassium as needed -- Recheck serum phosphorus this afternoon -- Monitor metabolic profile q 4 hours -- Serial neurologic exams
--- NOTE | 2017-01-19 18:35 | Family Medicine Progress Note ---
Progress Note Date of Service Jan 19, 2017. Subjective Pt evaluation today including: conversation w/ patient, conversation w/ family , physical exam, lab review, review of studies, conversation w/ personnel consultant Voiding: vega catheter in place Patient was seen at the bedside. His was also at the bedside. According to his for past 10days he has been only beer (most likely more than 10) and very minimal food. He was also nauseated and vomited. He has been drinking for many years and it is usually between 2-10. This morning he was able to tell his name and where he is. Per , sometimes he would be agitated and would want to leave the room thinking he is at home. Denies nausea and vomiting upon admission. Constitutional: No fever Respiratory: No cough, No shortness of breath Cardiovascular: No chest pain Abdomen: No pain, No nausea, No vomiting, No diarrhea Musculoskeletal: No muscle pain Skin: No rash Medications Medications Administered Medications (Trade) Dose Ordered Sig/Bety Route Start Time Stop Time Status Last Admin Dose Admin Sodium Chloride 1,000 ml @ 125 mls/hr Q8H STAT IV 01/18/17 20:27 01/19/17 17:16 DC 01/18/17 20:50 125 MLS/HR Ondansetron HCl (Zofran Inj) 4 mg Q6H PRN IV 01/18/17 22:15 02/17/17 22:14 01/19/17 00:46 4 MG Lorazepam (Ativan Inj) 1 mg ONE PRN IV 01/18/17 22:15 01/19/17 07:47 DC 01/19/17 07:47 1 MG Lorazepam (Ativan Inj) 1 mg NOW STAT IV 01/18/17 22:10 01/18/17 22:11 DC 01/18/17 22:21 1 MG Dextrose/Sodium Chloride 1,000 ml @ 100 mls/hr Q10H IV 01/18/17 22:15 01/19/17 17:17 DC 01/19/17 17:00 100 MLS/HR Potassium Citrate (Urocit-K Tab) 40 meq NOW ONCE PO 01/18/17 22:15 01/18/17 22:34 DC 01/18/17 22:54 40 MEQ Thiamine HCl (Vitamin B-1 Tab) 100 mg NOW ONCE PO 01/18/17 22:30 01/18/17 22:34 DC 01/18/17 22:53 100 MG Folic Acid (Folvite Tab) 400 mcg QAM PO 01/19/17 09:00 02/18/17 08:59 01/19/17 07:37 400 MCG Multivitamins 10 ml/Thiamine HCl 100 mg/Folic Acid 1 mg/Sodium Chloride 1,011.2 ml @ 100 mls/ hr Q24H IV 01/19/17 09:00 02/18/17 08:59 01/19/17 07:36 100 MLS/HR Lorazepam (Ativan Inj) PRN Dosing -Active Protocol Q1H PRN IV 01/19/17 09:45 02/18/17 09:44 01/19/17 15:46 1 MG Gabapentin (Neurontin Cap) 800 mg TODAY@1000 PO 01/19/17 10:00 01/19/17 10:01 DC 01/19/17 10:25 800 MG Gabapentin (Neurontin Cap) 400 mg Q6H PO 01/19/17 14:00 01/19/17 20:01 01/19/17 13:44 400 MG Potassium Chloride (Klor-Con Tab) 40 meq NOW STAT PO 01/19/17 11:13 01/19/17 11:14 DC 01/19/17 11:38 40 MEQ Chlordiazepoxide (Librium Cap) 50 mg NOW STAT PO 01/19/17 11:32 01/19/17 11:33 DC 01/19/17 11:38 50 MG Potassium Phosphate 30 mmol/ Sodium Chloride 510 ml @ 88 mls/hr TODAY@1230 IV 01/19/17 12:30 01/19/17 18:18 DC 01/19/17 12:37 88 MLS/HR Objective Vital Signs Date Time Temp Pulse Resp B/P (MAP) Pulse Ox O2 Delivery O2 Flow Rate FiO2 01/19/17 16:00 95 Room Air 01/19/17 15:24 37.1 92 16 108/70 (83) 95 Room Air 01/19/17 12:00 Room Air 01/19/17 10:26 36.9 111 20 116/75 (89) 95 Room Air 01/19/17 08:00 Room Air 01/19/17 07:00 37.0 100 18 128/85 (99) 95 Room Air 8/17/17 04:00 94 Room Air 01/19/17 03:55 37.2 92 18 128/80 (96) 94 Room Air 01/19/17 00:01 97 Room Air 01/18/17 23:16 37.0 87 18 124/81 97 Room Air 01/18/17 22:23 101 18 131/87 98 Room Air 01/18/17 19:38 37.0 100 18 103/61 95 Room Air Physical Exam General Appearance: no apparent distress, + pertinent finding (tremor was noted ) Neck: supple, trachea midline Respiratory/Chest: chest non-tender, lungs clear, normal breath sounds, no respiratory distress, no accessory muscle use Cardiovascular: regular rate, rhythm Abdomen: normal bowel sounds, non tender, soft Extremities: non-tender, no pedal edema Neurologic/Psychiatric: no motor/sensory deficits, alert Skin: normal color, warm/dry, no rash Laboratory Results Results Past 24 Hours Test 01/18/17 20:38 01/18/17 22:46 01/18/17 22:53 01/18/17 23:50 Range/Units White Blood Count 5.19 4.8-10.8 K/uL Red Blood Count 3.23 4.7-6.1 M/uL Hemoglobin 11.1 14.0-18.0 g/dL Hematocrit 30.7 42-52 % Mean Corpuscular Volume 95.0 80-100 fL Mean Corpuscular Hemoglobin 34.4 25-34 pg Mean Corpuscular Hemoglobin Concent 36.2 32-36 g/dl Platelet Count 126 130-400 K/uL Mean Platelet Volume 10.8 7.4-10.4 fL Neutrophils (%) (Auto) 74.5 % Lymphocytes (%) (Auto) 14.3 % Monocytes (%) (Auto) 10.8 % Eosinophils (%) (Auto) 0.2 % Basophils (%) (Auto) 0.0 % Neutrophils # (Auto) 3.87 1.4-6.5 K/uL Lymphocytes # (Auto) 0.74 1.2-3.4 K/uL Monocytes # (Auto) 0.56 0.11-0.59 K/uL Eosinophils # (Auto) 0.01 0-0.5 K/uL Basophils # (Auto) 0.00 0-0.2 K/uL RDW Standard Deviation 42.2 36.4-46.3 fL RDW Coefficient of Variation 12.2 11.5-14.5 % Immature Granulocyte % (Auto) 0.2 % Immature Granulocyte # (Auto) 0.01 0.00-0.02 K/uL Prothrombin Time 11.1 9.0-12.0 SECONDS Prothromb Time International Ratio 1.0 0.9-1.1 Activated Partial Thromboplast Time 27.4 21.0-31.0 SECONDS Partial Thromboplastin Ratio 1.1 Sodium Level 114 136-145 mmol/L Potassium Level 3.3 3.5-5.1 mmol/L Chloride Level 72 98-107 mmol/L Carbon Dioxide Level 28 21-32 mmol/L Anion Gap 13.0 3-11 mmol/L Blood Urea Nitrogen 10 7-18 mg/dl Creatinine 0.82 0.60-1.40 mg/dl Est Creatinine Clear Calc Drug Dose 120.8 ml/min Estimated GFR () 129.1 Estimated GFR (Non- 111.4 BUN/Creatinine Ratio 12.3 10-20 Random Glucose 108 70-99 mg/dl Osmolality 279 280-300 mOsm/kg Calcium Level 8.2 8.5-10.1 mg/dl Phosphorus Level 2.0 2.5-4.9 mg/dl Magnesium Level 1.9 1.8-2.4 mg/dl Total Bilirubin 2.6 0.2-1 mg/dl Direct Bilirubin 1.7 0-0.2 mg/dl Aspartate Amino Transf (AST/SGOT) 423 15-37 U/L Alanine Aminotransferase (ALT/SGPT) 211 12-78 U/L Alkaline Phosphatase 172 45-117 U/L Total Protein 7.7 6.4-8.2 gm/dl Albumin 3.2 3.4-5.0 gm/dl Ethyl Alcohol mg/dL 160.0 0-3 mg/dl Hepatitis B Surface Antigen NEG NEG Hepatitis C Antibody NEG NEG Urine Osmolality 284 500-800 mOms/kg Urine Random Sodium 13 mEq/L Test 01/18/17 23:57 01/19/17 04:21 01/19/17 04:22 01/19/17 08:01 Range/Units Sodium Level 114 117 118 136-145 mmol/L Potassium Level 3.8 3.6 3.4 3.5-5.1 mmol/L Chloride Level 73 78 79 98-107 mmol/L Carbon Dioxide Level 31 28 28 21-32 mmol/L Anion Gap 10.0 11.0 10.0 3-11 mmol/L Blood Urea Nitrogen 10 9 9 7-18 mg/dl Creatinine 0.86 0.77 0.89 0.60-1.40 mg/dl Est Creatinine Clear Calc Drug Dose 112.9 126.1 109.1 ml/min Estimated GFR () 126.6 132.5 124.8 Estimated GFR (Non- 109.2 114.3 107.7 BUN/Creatinine Ratio 11.9 12.0 9.6 10-20 Random Glucose 87 86 96 70-99 mg/dl Calcium Level 8.2 8.0 8.3 8.5-10.1 mg/dl White Blood Count 4.01 4.8-10.8 K/uL Red Blood Count 2.86 4.7-6.1 M/uL Hemoglobin 10.1 14.0-18.0 g/dL Hematocrit 27.0 42-52 % Mean Corpuscular Volume 94.4 80-100 fL Mean Corpuscular Hemoglobin 35.3 25-34 pg Mean Corpuscular Hemoglobin Concent 37.4 32-36 g/dl Platelet Count 101 130-400 K/uL Mean Platelet Volume 10.7 7.4-10.4 fL Neutrophils (%) (Auto) 71.9 % Lymphocytes (%) (Auto) 15.0 % Monocytes (%) (Auto) 11.7 % Eosinophils (%) (Auto) 1.0 % Basophils (%) (Auto) 0.2 % Neutrophils # (Auto) 2.88 1.4-6.5 K/uL Lymphocytes # (Auto) 0.60 1.2-3.4 K/uL Monocytes # (Auto) 0.47 0.11-0.59 K/uL Eosinophils # (Auto) 0.04 0-0.5 K/uL Basophils # (Auto) 0.01 0-0.2 K/uL RDW Standard Deviation 42.6 36.4-46.3 fL RDW Coefficient of Variation 12.4 11.5-14.5 % Immature Granulocyte % (Auto) 0.2 % Immature Granulocyte # (Auto) 0.01 0.00-0.02 K/uL Vitamin B12 Level 1176 211-911 pg/mL Folate 5.26 >5.38 ng/mL Iron Level 173 35-175 mcg/dl Thyroid Stimulating Hormone (TSH) 3.450 0.300-4.500 uIu/ml Test 01/19/17 12:37 01/19/17 13:45 01/19/17 16:01 Range/Units Sodium Level 120 125 136-145 mmol/L Potassium Level 3.5 3.9 3.5-5.1 mmol/L Chloride Level 83 90 98-107 mmol/L Carbon Dioxide Level 28 30 21-32 mmol/L Anion Gap 9.0 5.0 3-11 mmol/L Blood Urea Nitrogen 8 8 7-18 mg/dl Creatinine 0.95 0.82 0.60-1.40 mg/dl Est Creatinine Clear Calc Drug Dose 102.2 118.4 ml/min Estimated GFR () 116.4 129.1 Estimated GFR (Non- 100.4 111.4 BUN/Creatinine Ratio 8.7 9.6 10-20 Random Glucose 115 101 70-99 mg/dl Calcium Level 8.6 8.4 8.5-10.1 mg/dl Phosphorus Level 1.8 2.5-4.9 mg/dl Total Bilirubin 2.5 0.2-1 mg/dl Direct Bilirubin 1.6 0-0.2 mg/dl Aspartate Amino Transf (AST/SGOT) 389 15-37 U/L Alanine Aminotransferase (ALT/SGPT) 196 12-78 U/L Alkaline Phosphatase 140 45-117 U/L Total Protein 7.0 6.4-8.2 gm/dl Albumin 3.0 3.4-5.0 gm/dl Urine Osmolality 107 500-800 mOms/kg Urine Random Sodium 11 mEq/L Urine Random Potassium 9.9 mEq/L Assessment and Plan This is a 41 y/o male with hx HTN presented to the hospital with presyncopal episodes and significant hyponatremia. Patient was seen by the primary care doctor for presyncopal episodes and lab works were done. He was later called and informed to come to the ED given significant hyponatremia. In ED his sodium level was 114. Serum osm 279, urine osm 284 and urine protein is 13. His last sodium level was 125. Patient also noted to be confused and intermittent agitation which most likely 2/2 alcohol withdrawal but could also be 2/2 hyponatremia. * Hyponatremia secondary to potomania vs dehydration - Given that patient hasn't been eating or drinking for past weeks, he could be hypovolemic. However in physical exam he doesn't appear to be hypovolemic, more like euvolemic. - Nephrology was consulted and he recommended to repeat urine osm, urine sodium and potassium - Continue D5NSS @ 100cc/h considering the patient's history of alcohol use - BMP q3h until sodium is 120 and then increase interval to q8h until WNL - Continue monitor him in Tele * Presyncopal episodes - cardiac vs dehydration - tele admission to assess for potential arrhythmias, no arrhythmias overnight. - ekg was normal in ED - IVF as above * Electrolytes abnormalities - 2/2 nausea and vomiting, chronic alcohol and possible dehydration - received 40 meq in ED - Start IV phos potassium given hypokalemia and low phos - Continue to monitor BMP * Anemia secondary to vitamin def vs acute blood loss - most likely secondary to vit def; check folate, Vit B12 - pending - Iron level is normal - Hemoccult to r/o GI source * Thrombocytopenia most likely secondary to chronic alcohol use - will follow however this may very well be chronic in nature * Transaminitis secondary to alcohol use - AST> ALT which is reflective of alcohol use - if improvement with cessation of alcohol will defer imaging - consider USG if no improvement - Hep Bs and hep C antibody negative * Alcohol abuse - thiamine and folate in ED PO - Daily banana bag - alcohol withdrawal protocol - On gabapentin, Ativan prn and schedule Librium per protocol * HTN - for now will hold labetalol and Benicar - Metoprolol 5 mg IV for HR > 120 and systolic > 180 * DVT prophylaxis - in light of thrombocytopenia will hold chemical prophylaxis, SCD Resident Physician Supervision Note: I was present with Dr. Durant during the history and exam. I discussed the case with the resident and agree with the findings and plan as documented in the note. I also discussed the case with nephrology as well. The patent's altered mental status at present is secondary to his hyponatremia - I do not think this is underwriting service representative of ETOH withdrawal, especially given (+ ) TOPHER on presentation. I suspect we will see signs of withdrawal starting within the next 12-24 hours. I was able to discuss his condition with both his and his father - both of whom realize the need for him to enter a program post discharge. PLAN 1) Change fluid to D5W and 1/2NSS 2) BMP at 8 PM and q 4 hours thereafter 3) ETOH withdrawal protocol. 4) Psychiatry and/or SS consult tomorrow. Documented By: Enrike Pinon
[2017-01-19] MEDS: D5W AND 1/2NSS 1,000 ML IV SCH (19:26)
[2017-01-19] MEDS: CHLORDIAZEPOXIDE 50MG 2ND DOSE PO SCH (20:15)
[2017-01-19] MEDS: SIMVASTATIN 20 MG TAB PO SCH (20:15)
[2017-01-19 20:39] LABS: BUN/CREATININE RATIO 8.3 (10-20); CALCIUM 8.5 mg/dl (8.5-10.1); CREATININE 0.75 mg/dl (0.60-1.40); POTASSIUM 3.6 mmol/L (3.5-5.1)
[2017-01-20] VITALS (7 sets, daily range): BP systolic 122–143; BP diastolic 81–92; PULSE 86–110; TEMP 36.3–37.1; O2SAT 96–99
[2017-01-20] MEDS: LORAZEPAM 1 MG TAB PO PRN
[2017-01-20 01:08] LABS: BUN/CREATININE RATIO 7.5 (10-20); CALCIUM 8.5 mg/dl (8.5-10.1); CREATININE 0.79 mg/dl (0.60-1.40); POTASSIUM 3.4 mmol/L (3.5-5.1)
[2017-01-20] MEDS: CHLORDIAZEPOXIDE 50MG 2ND DOSE PO SCH ×2 (03:50→12:41)
[2017-01-20] MEDS: D5W AND 1/2NSS 1,000 ML IV SCH (03:52)
[2017-01-20] MEDS ORDERED: DEXTROSE 5% 1000ML 1,000 ML IV SCH (07:00)
[2017-01-20] MEDS ORDERED: POTASSIUM CHLORIDE 20 MEQ TABCR PO SCH (07:15)
[2017-01-20 07:49] LABS: BUN/CREATININE RATIO 6.3 (10-20); CALCIUM 8.5 mg/dl (8.5-10.1); CREATININE 0.72 mg/dl (0.60-1.40); PHOSPHORUS 2.5 mg/dl (2.5-4.9); POTASSIUM 3.6 mmol/L (3.5-5.1)
[2017-01-20] MEDS: MULTI-VITAMIN INFUSION INJ 10 ML, THIAMINE HCL INJ 100 MG, FoLIC ACID INJ 1 MG in SODIU... IV SCH (07:50)
[2017-01-20 08:15] LABS: HEMATOCRIT 28.3 % (42-52); MEAN CORPUSCULAR HEMOGLOBIN 35.3 pg (25-34); MEAN CORPUSCULAR HGB CONC 35.3 g/dl (32-36); MEAN PLATELET VOLUME 11.2 fL (7.4-10.4); PLATELET COUNT 92 K/uL (130-400); PLT ESTIMATE DECREASED; RED BLOOD COUNT 2.83 M/uL (4.7-6.1); WHITE BLOOD COUNT 2.63 K/uL (4.8-10.8)
--- NOTE | 2017-01-20 08:25 | Medical Student: [facility] ---
Med Student Progress Note Date of Service Jan 20, 2017. Subjective Pt evaluation today including: conversation w/ patient, physical exam Pain: patient denies PO Intake: 795ml IV, 620ml output Voiding: no voiding problems, no incontinence Reilly Mayo is a 41 yo male, with PMHx of HTN,, who was admitted for hyponatremia (114 on admission) and presyncopal episodes for 1.5 weeks prior. Today he is complaining of weakness and hunger, but denies nausea, headache, and any pain. Patient is tolerating vega catheter, and he notes darker yellow urine. Review of Systems Constitutional: + weakness, + fatigue, No fever, No chills, No sweats Eyes: No worsening of vision, No redness ENT: No hearing loss (at baseline), No nasal symptoms, No sore throat Respiratory: No cough, No sputum, No wheezing, No shortness of breath Cardiac: No chest pain, No edema, No palpitations Abdomen: No pain, No nausea, No vomiting, No diarrhea, No constipation Musculoskeletal: No joint pain, No muscle pain, No swelling Male : No dysuria, No urinary frequency (vega placement) Neurologic: + weakness, No numbness/tingling, No vertigo Psychiatric: No anxiety Heme: No abnormal bleeding/bruising, No swollen lymph nodes Endo: + fatigue, No excessive thirst Skin: No rash, No itch Objective Vital Signs Date Time Temp Pulse Resp B/P (MAP) Pulse Ox O2 Delivery O2 Flow Rate FiO2 01/20/17 07:40 Room Air 01/20/17 06:56 37.0 86 16 122/84 (97) 99 Room Air 01/20/17 04:00 Room Air 01/20/17 03:56 36.9 108 17 143/83 (103) 96 Room Air 01/20/17 00:00 Room Air 01/19/17 22:55 37.2 105 16 129/85 (100) 97 Room Air 01/19/17 20:00 Room Air 01/19/17 19:58 37.1 81 18 113/72 (86) 98 Room Air 01/19/17 16:00 95 Room Air 01/19/17 15:24 37.1 92 16 108/70 (83) 95 Room Air 01/19/17 12:00 Room Air 01/19/17 10:26 36.9 111 20 116/75 (89) 95 Room Air Physical Exam General Appearance: WD/WN, no apparent distress, + pertinent finding (dry lips) Eyes: bilateral eyes normal inspection, bilateral eyes PERRL, bilateral eyes EOMI ENT: normal ENT inspection, hearing grossly normal, pharynx normal Neck: supple, no adenopathy Respiratory/Chest: chest non-tender, lungs clear, normal breath sounds, no respiratory distress, no accessory muscle use Cardiovascular: regular rate, rhythm, no edema, no murmur Abdomen: normal bowel sounds, non tender, soft Extremities: non-tender, normal inspection, no pedal edema, no calf tenderness , + pertinent finding (slight intention tremor with movement of upper extremities, improved since yesterday) Neurologic/Psychiatric: forder operator II-XII nml as tested, alert, normal mood/affect, oriented x 3, + abnormal cerebellar tests (slow finger to nose and did not quite hit tip of nose and tip of examiners finger with either hand), + motor weakness (legs 4/5 proximal muscle strength bilaterally, 5/5 strength upper extremities/foot extension/flexion), + sensory deficit Skin: normal color, warm/dry, no rash Lymphatic: no adenopathy Laboratory Results Last 24 Hours Test 01/19/17 12:37 01/19/17 13:45 01/19/17 16:01 01/19/17 20:01 Sodium Level 120 mmol/L 125 mmol/L 129 mmol/L Potassium Level 3.5 mmol/L 3.9 mmol/L 3.6 mmol/L Chloride Level 83 mmol/L 90 mmol/L 97 mmol/L Carbon Dioxide Level 28 mmol/L 30 mmol/L 29 mmol/L Anion Gap 9.0 mmol/L 5.0 mmol/L 3.0 mmol/L Blood Urea Nitrogen 8 mg/dl 8 mg/dl 6 mg/dl Creatinine 0.95 mg/dl 0.82 mg/dl 0.75 mg/dl Est Creatinine Clear Calc Drug Dose 102.2 ml/min 118.4 ml/min 129.4 ml/min Estimated GFR () 116.4 129.1 133.9 Estimated GFR (Non- 100.4 111.4 115.6 BUN/Creatinine Ratio 8.7 9.6 8.3 Random Glucose 115 mg/dl 101 mg/dl 102 mg/dl Calcium Level 8.6 mg/dl 8.4 mg/dl 8.5 mg/dl Phosphorus Level 1.8 mg/dl 3.0 mg/dl Total Bilirubin 2.5 mg/dl Direct Bilirubin 1.6 mg/dl Aspartate Amino Transf (AST/SGOT) 389 U/L Alanine Aminotransferase (ALT/SGPT) 196 U/L Alkaline Phosphatase 140 U/L Total Protein 7.0 gm/dl Albumin 3.0 gm/dl Urine Osmolality 107 mOms/kg Urine Random Sodium 11 mEq/L Urine Random Potassium 9.9 mEq/L Test 01/20/17 00:26 01/20/17 04:55 01/20/17 06:51 Sodium Level 133 mmol/L 133 mmol/L Potassium Level 3.4 mmol/L 3.6 mmol/L Chloride Level 97 mmol/L 98 mmol/L Carbon Dioxide Level 31 mmol/L 30 mmol/L Anion Gap 5.0 mmol/L 5.0 mmol/L Blood Urea Nitrogen 6 mg/dl 5 mg/dl Creatinine 0.79 mg/dl 0.72 mg/dl Est Creatinine Clear Calc Drug Dose 122.9 ml/min 130.9 ml/min Estimated GFR () 131.1 136.2 Estimated GFR (Non- 113.1 117.5 BUN/Creatinine Ratio 7.5 6.3 Random Glucose 83 mg/dl 105 mg/dl Calcium Level 8.5 mg/dl 8.5 mg/dl Urine Osmolality 512 mOms/kg Urine Random Sodium 146 mEq/L Urine Random Potassium 10.4 mEq/L White Blood Count 2.63 K/uL Red Blood Count 2.83 M/uL Hemoglobin 10.0 g/dL Hematocrit 28.3 % Mean Corpuscular Volume 100.0 fL Mean Corpuscular Hemoglobin 35.3 pg Mean Corpuscular Hemoglobin Concent 35.3 g/dl RDW Standard Deviation 46.6 fL RDW Coefficient of Variation 12.7 % Platelet Count 92 K/uL Mean Platelet Volume 11.2 fL Platelet Estimate DECREASED Phosphorus Level 2.5 mg/dl Albumin 2.9 gm/dl Medications Medications Administered Medications (Trade) Dose Ordered Sig/Bety Route Start Time Stop Time Status Last Admin Dose Admin Sodium Chloride 1,000 ml @ 125 mls/hr Q8H STAT IV 01/18/17 20:27 01/19/17 17:16 DC 01/18/17 20:50 125 MLS/HR Ondansetron HCl (Zofran Inj) 4 mg Q6H PRN IV 01/18/17 22:15 02/17/17 22:14 01/19/17 00:46 4 MG Lorazepam (Ativan Inj) 1 mg ONE PRN IV 01/18/17 22:15 01/19/17 07:47 DC 01/19/17 07:47 1 MG Lorazepam (Ativan Inj) 1 mg NOW STAT IV 01/18/17 22:10 01/18/17 22:11 DC 01/18/17 22:21 1 MG Simvastatin (Zocor Tab) 20 mg QPM PO 01/19/17 21:00 02/18/17 20:59 01/19/17 20:15 20 MG Dextrose/Sodium Chloride 1,000 ml @ 100 mls/hr Q10H IV 01/18/17 22:15 01/19/17 17:17 DC 01/19/17 17:00 100 MLS/HR Potassium Citrate (Urocit-K Tab) 40 meq NOW ONCE PO 01/18/17 22:15 01/18/17 22:34 DC 01/18/17 22:54 40 MEQ Thiamine HCl (Vitamin B-1 Tab) 100 mg NOW ONCE PO 01/18/17 22:30 01/18/17 22:34 DC 01/18/17 22:53 100 MG Folic Acid (Folvite Tab) 400 mcg QAM PO 01/19/17 09:00 02/18/17 08:59 01/19/17 07:37 400 MCG Multivitamins 10 ml/Thiamine HCl 100 mg/Folic Acid 1 mg/Sodium Chloride 1,011.2 ml @ 100 mls/ hr Q24H IV 01/19/17 09:00 02/18/17 08:59 01/20/17 07:50 100 MLS/HR Lorazepam (Ativan Tab) PRN Dosing -Active Protocol UD PRN PO 01/19/17 09:45 02/18/17 09:44 01/20/17 00:00 1 MG Lorazepam (Ativan Inj) PRN Dosing -Active Protocol Q1H PRN IV 01/19/17 09:45 02/18/17 09:44 01/19/17 15:46 1 MG Gabapentin (Neurontin Cap) 800 mg TODAY@1000 PO 01/19/17 10:00 01/19/17 10:01 DC 01/19/17 10:25 800 MG Gabapentin (Neurontin Cap) 400 mg Q6H PO 01/19/17 14:00 01/19/17 20:01 DC 01/19/17 20:14 400 MG Potassium Chloride (Klor-Con Tab) 40 meq NOW STAT PO 01/19/17 11:13 01/19/17 11:14 DC 01/19/17 11:38 40 MEQ Chlordiazepoxide (Librium Cap) 50 mg NOW STAT PO 01/19/17 11:32 01/19/17 11:33 DC 01/19/17 11:38 50 MG Chlordiazepoxide (Librium Cap) 50 mg Q8H PO 01/19/17 20:00 01/20/17 12:01 01/20/17 03:50 50 MG Potassium Phosphate 30 mmol/ Sodium Chloride 510 ml @ 88 mls/hr TODAY@1230 IV 01/19/17 12:30 01/19/17 18:18 DC 01/19/17 12:37 88 MLS/HR Dextrose/Sodium Chloride 1,000 ml @ 75 mls/hr [id number] IV 01/19/17 17:30 01/20/17 06:53 DC 01/20/17 03:52 100 MLS/HR Assessment and Plan Assessment and Plan: Reilly Mayo is a 41 yo male with PMHx of HTN, who presented to the ED complaining of abnormal labs (low sodium/potassium) and lightheadedness with presyncopal episodes x1.5 weeks. He has been drinking 10+ beers/day with little food x 01/10/2017. He scored 2/4 on CAGE criteria. Since admission, sodium has increased to 133. Patient was switched to D5W yesterday afternoon then back to D5W NaCl mid-morning, with recheck of electrolytes and urine ( osmolarity, sodium, and potassium) every 4 hours to make sure he is not correcting his sodium too quickly. Hyponatremia, severe, symptomatic, likely secondary to beer potomania - Repeat sodium levels q3hrs (114, 114, 117, 118, 120, 125, 129, 133, 133) - IV fluids (D5W NaCl) 250ml/hr - Consult nephrology "-- D5 W NaCl @ 250 ml/hr -- Continue switching banana bag to oral thiamine, folate and MVI to decrease free water intake -- Avoid additional correction at this time and favor maintaining current serum sodium at approximately 130 mmol/L -- Replete potassium as needed -- Monitor serum phosphorus daily -- Monitor metabolic profile q 4 hours -- Serial neurologic exams -- Continue to closely monitor UOP" - Admit to telemetry - Check urine osmoles (284, 107), urine sodium (13, 11), and urine potassium ( 9.9) - Check renal profile. BUN: 10, 9, 9, 8. Cr: .86, .95, .86, .77 Hypokalemia - Repeat potassium levels (3.3, 3.8, 3.6, 3.8, 3.3, 3.5, 3.9, 3.6, 3.4, 3.6). - Magnesium level: 1.9 - Give Potassium Phosphate 30 mmol/Sodium Chloride Presyncopal episodes - Admit to telemetry and monitor. D5W fluids as noted above. - EKG results: "Normal sinus rhythm, Normal ECG, When compared with ECG of Dec-2003 20:21, No significant change was found." Transaminitis - Check liver profile. LFTs: AST (423, 389), ALT (211, 196), alkaline phosphatase (172, 140). Continue to monitor as withdraws from alcohol. AST>ALT (2:1) indicates alcohol use - Hepatitis B and C negative Alcohol abuse, acute on chronic - Chlordiazepoxide (Librium Cap) 50mg, Gabapentin (Neurontin Cap) 400mg, Ondansetron HCl (Zofran Inj) 4mg, per alcohol withdrawal protocol - Vitamin replacement: Folic Acid (Folvite Tab) 400 mcg QAM PO, Multivitamins 10 ml/Thiamine HCl 100 mg/Folic Acid 1 mg/Sodium Chloride 1,011.2 ml @ 100 mls/ hr Q24hrs - Low hemoglobin (11.1 and 10.1, 10.0) and low platelets (126, 101, 92) likely dilutional/secondary to alcohol use/vitamin deficiency. Continue to monitor. HTN, chronic - Hypotensive on arrival, hold home medications (Olmesartan Medoxomil 40 Mg Tab 1 Tab PO DAILY, Normodyne (Labetalol HCl) 200 Mg Tab 0.5 Tab PO BID) - Monitor BP's (103/61, 131/87, 124/81, 128/80, 128/85, 116/75) Dyslipidemia, chronic - Continue home medication (Zocor (Simvastatin) 20 Mg Tab 20 Mg PO QPM) DVT prophylaxis - Platelets at 101, hold heparin at this time, use SCDs Continued [facility] stay due to: ambulation difficulties
[2017-01-20] MEDS: FoLIC ACID TAB 400 MCG TAB PO SCH (09:34)
[2017-01-20] MEDS: GABAPENTIN 400MG Q8H DOSE PO SCH ×3 (09:35→22:14)
--- NOTE | 2017-01-20 11:21 | Nephrology Progress Note ---
Nephrology Progress Note Date of Service Jan 20, 2017. Chief Complaint Hyponatremia Subjective No acute events overnight. Reilly is more awake this morning. He is soft spoken and answers questions in short phrases. He was NPO for labs this morning but should be restarting his diet. Urine output increased overnight and now slowing down. He denies any headache. He does not endorse any tremors or weakness. He denies shortness of breath. Review of Systems A complete review of systems was performed. Pertinent positives are noted above. All other systems are negative. Vital Signs Last 8 Hrs Date Time Temp Pulse Resp B/P (MAP) Pulse Ox O2 Delivery O2 Flow Rate FiO2 01/20/17 10:46 36.3 105 20 125/84 (98) 98 Room Air 01/20/17 07:40 Room Air 01/20/17 06:56 37.0 86 16 122/84 (97) 99 Room Air 01/20/17 04:00 Room Air 01/20/17 03:56 36.9 108 17 143/83 (103) 96 Room Air Last Recorded Weight Weight (Kilograms): 67.200 Physical Exam General Appearance: no apparent distress, + thin Head: normocephalic, atraumatic Eyes: normal inspection, sclerae normal ENT: normal ENT inspection, pharynx normal Neck: supple, no JVD Respiratory/Chest: lungs clear, no respiratory distress, no accessory muscle use Cardiovascular: regular rate, rhythm, no gallop, no murmur Abdomen/GI: non tender, soft Genitourinary - Male: + pertinent finding (Raya draining yellow urine) Extremities/Musculoskelatal: normal inspection, no pedal edema Neurologic/Psych: alert, + depressed affect Family History Cancer Heart disease Hypertension Kidney disease Kidney stones Social History Smokeless Tobacco Use: Yes Alcohol Use: heavy Drug Use: none Marital Status: Housing Status: lives with family Occupation: employed Laboratory Results Past 24 Hours 01/20/17 06:51 01/19/17 12:37 01/19/17 16:01 01/19/17 20:01 01/20/17 00:26 01/20/17 06:51 Test 01/19/17 12:37 01/19/17 13:45 01/19/17 16:01 01/19/17 20:01 Anion Gap 9.0 mmol/L (3-11) 5.0 mmol/L (3-11) 3.0 mmol/L (3-11) Est Creatinine Clear Calc Drug Dose 102.2 ml/min 118.4 ml/min 129.4 ml/min Estimated GFR () 116.4 129.1 133.9 Estimated GFR (Non- 100.4 111.4 115.6 BUN/Creatinine Ratio 8.7 (10-20) 9.6 (10-20) 8.3 (10-20) Calcium Level 8.6 mg/dl (8.5-10.1) 8.4 mg/dl (8.5-10.1) 8.5 mg/dl (8.5-10.1) Phosphorus Level 1.8 mg/dl (2.5-4.9) 3.0 mg/dl (2.5-4.9) Total Bilirubin 2.5 mg/dl (0.2-1) Direct Bilirubin 1.6 mg/dl (0-0.2) Aspartate Amino Transf (AST/SGOT) 389 U/L (15-37) Alanine Aminotransferase (ALT/SGPT) 196 U/L (12-78) Alkaline Phosphatase 140 U/L (45-117) Total Protein 7.0 gm/dl (6.4-8.2) Albumin 3.0 gm/dl (3.4-5.0) Urine Osmolality 107 mOms/kg (500-800) Urine Random Sodium 11 mEq/L Urine Random Potassium 9.9 mEq/L Test 01/20/17 00:26 01/20/17 04:55 01/20/17 06:51 Anion Gap 5.0 mmol/L (3-11) 5.0 mmol/L (3-11) Est Creatinine Clear Calc Drug Dose 122.9 ml/min 130.9 ml/min Estimated GFR () 131.1 136.2 Estimated GFR (Non- 113.1 117.5 BUN/Creatinine Ratio 7.5 (10-20) 6.3 (10-20) Calcium Level 8.5 mg/dl (8.5-10.1) 8.5 mg/dl (8.5-10.1) Urine Osmolality 512 mOms/kg (500-800) Urine Random Sodium 146 mEq/L Urine Random Potassium 10.4 mEq/L Red Blood Count 2.83 M/uL (4.7-6.1) Mean Corpuscular Volume 100.0 fL (80-100) Mean Corpuscular Hemoglobin 35.3 pg (25-34) Mean Corpuscular Hemoglobin Concent 35.3 g/dl (32-36) RDW Standard Deviation 46.6 fL (36.4-46.3) RDW Coefficient of Variation 12.7 % (11.5-14.5) Mean Platelet Volume 11.2 fL (7.4-10.4) Platelet Estimate DECREASED Phosphorus Level 2.5 mg/dl (2.5-4.9) Albumin 2.9 gm/dl (3.4-5.0) Allergies Coded Allergies: No Known Allergies (Unverified , 01/18/17) Medications Current Inpatient Medications Medications (Trade) Dose Ordered Sig/Bety Route Start Time Stop Time Status Last Admin Dose Admin Al Hydrox/Mg Hydrox/Simethicone (Maalox Max Susp) 15 ml Q4H PRN PO 01/18/17 22:15 02/17/17 22:14 Zolpidem Tartrate (Ambien Tab) 5 mg HSZ PRN PO 01/18/17 22:15 02/17/17 22:14 Ondansetron HCl (Zofran Inj) 4 mg Q6H PRN IV 01/18/17 22:15 02/17/17 22:14 01/19/17 00:46 4 MG Diphenhydramine HCl (Benadryl Cap) 25 mg HS PRN PO 01/18/17 22:15 02/17/17 22:14 Simvastatin (Zocor Tab) 20 mg QPM PO 01/19/17 21:00 02/18/17 20:59 01/19/17 20:15 20 MG Metoprolol Tartrate (Lopressor Iv) 5 mg Q4H PRN IV 01/18/17 22:15 02/17/17 22:14 Folic Acid (Folvite Tab) 400 mcg QAM PO 01/19/17 09:00 02/18/17 08:59 01/20/17 09:34 400 MCG Multivitamins 10 ml/Thiamine HCl 100 mg/Folic Acid 1 mg/Sodium Chloride 1,011.2 ml @ 100 mls/ hr Q24H IV 01/19/17 09:00 02/18/17 08:59 01/20/17 07:50 100 MLS/HR Lorazepam (Ativan Tab) PRN Dosing -Active Protocol UD PRN PO 01/19/17 09:45 02/18/17 09:44 01/20/17 00:00 1 MG Lorazepam (Ativan Inj) PRN Dosing -Active Protocol Q1H PRN IV 01/19/17 09:45 02/18/17 09:44 01/19/17 15:46 1 MG Gabapentin (Neurontin Cap) 400 mg Q8H PO 01/20/17 06:00 01/20/17 22:01 01/20/17 09:35 400 MG Gabapentin (Neurontin Cap) 400 mg Q12H PO 01/21/17 10:00 01/21/17 22:01 Gabapentin (Neurontin Cap) 400 mg Q24H PO 01/22/17 22:00 01/22/17 22:01 Chlordiazepoxide (Librium Cap) 50 mg Q8H PO 01/19/17 20:00 01/20/17 12:01 01/20/17 03:50 50 MG Chlordiazepoxide (Librium Cap) 25 mg Q8H PO 01/20/17 20:00 01/21/17 12:01 Chlordiazepoxide (Librium Cap) 10 mg Q12H PO 01/22/17 00:00 01/22/17 12:01 Dextrose 1,000 ml @ 250 mls/hr Q4H IV 01/20/17 07:00 02/19/17 06:59 01/20/17 09:34 250 MLS/HR Impression (1) Hyponatremia (2) Hypophosphatemia (3) Hypokalemia (4) Alcohol abuse (5) Transaminitis Mr. Reilly Mayo is a 41-year-old male with hypertension and a history of alcohol abuse. He presented with alcohol intoxication and mental status changes. He has a mild hepatitis with a Maddrey's score of 2.2 on presentation. He had severe hyponatremia. Initial clinical presentation consistent with hypovolemic hyponatremia. He was symptomatic. Oral solute intake was very poor consistent with potomania. Serum sodium on admission on admission was 114 mmol/L. It corrected to 125 mmol/L by yesterday afternoon. Reilly was maintained on 0.9% saline with D5. He was also hypokalemic and hypophosphatemic on presentation and received appropriate replacement. He is also on replacement of thiamine, folic acid and multivitamins. I reviewed with the patient the seriousness of his illness. He is at high risk for CPM given his poor nutritional status, low potassium, history of alcohol abuse and underlying liver disease. I would avoid a rate of rapid correction for his dysnatremia and favor a correction rate of 0.5 - 1.0 mmol/h. At this time, I favor that we keep his serum sodium in the range of 130. Potassium and phosphorus should be monitored regularly and replaced as needed. Urine free water clearance is decreasing. He may not require much IV free water but I did start an infusion this morning (notably while NPO). He is also receiving free water with each banana bag. 1 Liter of free water should bring his serum sodium closer to 130 mmol/L. Metabolic profile will be monitored Q 4 hours. IVF will be adjusted or discontinued accordingly. Urine studies can be repeated as needed based on change in laboratory studies. Reilly will continue to have serial neuro-checks and observational protocol for alcohol withdrawal. Recommendations -- D5 W NaCl @ 250 ml/hr -- Continue switching banana bag to oral thiamine, folate and MVI to decrease free water intake -- Avoid additional correction at this time and favor maintaining current serum sodium at approximately 130 mmol/L -- Replete potassium as needed -- Monitor serum phosphorus daily -- Monitor metabolic profile q 4 hours -- Serial neurologic exams -- Continue to closely monitor UOP
[2017-01-20] MEDS ORDERED: NURSING VERBAL MED ORDER ONE ×2 (12:00→13:15)
[2017-01-20 12:29] LABS: BUN/CREATININE RATIO 6.7 (10-20); CALCIUM 8.4 mg/dl (8.5-10.1); CREATININE 0.72 mg/dl (0.60-1.40); POTASSIUM 3.8 mmol/L (3.5-5.1)
--- NOTE | 2017-01-20 15:38 | Progress Note ---
Progress Note Date of Service Jan 20, 2017. Progress Note Resident Physician Supervision Note: I was present with Dr. Durant during the history and exam. I discussed the case with the resident. Please see her additional documentation the same date. Also discussed the case with nephrology. 41-year-old male with extensive alcohol abuse admitted with severe, symptomatic hyponatremia with a serum sodium of 114. This morning, he is awake alert and oriented. I had a discussion with him and his regarding the critical condition he presented to the hospital and reinforced that this is a direct result of his alcohol intake. We discussed, in [place] terms, alcohol detoxification including the acute withdrawal symptoms he may experience with the next 12-24 hours as well as the medications he is currently on to prevent/minimize his withdrawal symptoms. We also discussed, a more general terms, inpatient and outpatient treatment. His serum sodium corrected to 133 this morning. We really have no records to document his baseline of though given his history of alcohol intake and symptoms of dizziness/presyncope that dated back several months, I wonder if he is chronically in the low 130s. PLAN Nephrology input appreciated Goal is to maintain current serum sodium approximately 130 mmol per liter Monitor and replete potassium and phosphorus Replete potassium Monitor closely in terms of withdrawal Case measurement consult for help with disposition. Documented By: Enrike Pinon
[2017-01-20 17:00] LABS: BUN/CREATININE RATIO 8.3 (10-20); CALCIUM 8.4 mg/dl (8.5-10.1); CREATININE 0.7 mg/dl (0.60-1.40); POTASSIUM 3.9 mmol/L (3.5-5.1)
[2017-01-20 17:02] LABS: BUN/CREATININE RATIO 7.6 (10-20); CALCIUM 8.4 mg/dl (8.5-10.1); CREATININE 0.69 mg/dl (0.60-1.40); POTASSIUM 3.9 mmol/L (3.5-5.1)
--- NOTE | 2017-01-20 18:41 | Family Medicine Progress Note ---
Progress Note Date of Service Jan 20, 2017. 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 No acute event overnight. He was comfortably lying down on his bed. Per he is lot less agitated than yesterday. Patient denies any complaints. Constitutional: No fever Respiratory: No cough, No shortness of breath Cardiovascular: No chest pain Abdomen: No pain, No nausea, No vomiting, No diarrhea Skin: No rash Medications Current Inpatient Medications Medications (Trade) Dose Ordered Sig/Bety Route Start Time Stop Time Status Last Admin Dose Admin Al Hydrox/Mg Hydrox/Simethicone (Maalox Max Susp) 15 ml Q4H PRN PO 01/18/17 22:15 02/17/17 22:14 Zolpidem Tartrate (Ambien Tab) 5 mg HSZ PRN PO 01/18/17 22:15 02/17/17 22:14 Ondansetron HCl (Zofran Inj) 4 mg Q6H PRN IV 01/18/17 22:15 02/17/17 22:14 01/19/17 00:46 4 MG Diphenhydramine HCl (Benadryl Cap) 25 mg HS PRN PO 01/18/17 22:15 02/17/17 22:14 Simvastatin (Zocor Tab) 20 mg QPM PO 01/19/17 21:00 02/18/17 20:59 01/19/17 20:15 20 MG Metoprolol Tartrate (Lopressor Iv) 5 mg Q4H PRN IV 01/18/17 22:15 02/17/17 22:14 Folic Acid (Folvite Tab) 400 mcg QAM PO 01/19/17 09:00 02/18/17 08:59 01/20/17 09:34 400 MCG Multivitamins 10 ml/Thiamine HCl 100 mg/Folic Acid 1 mg/Sodium Chloride 1,011.2 ml @ 100 mls/ hr Q24H IV 01/19/17 09:00 02/18/17 08:59 01/20/17 07:50 100 MLS/HR Lorazepam (Ativan Tab) PRN Dosing -Active Protocol UD PRN PO 01/19/17 09:45 02/18/17 09:44 01/20/17 00:00 1 MG Lorazepam (Ativan Inj) PRN Dosing -Active Protocol Q1H PRN IV 01/19/17 09:45 02/18/17 09:44 01/19/17 15:46 1 MG Gabapentin (Neurontin Cap) 400 mg Q8H PO 01/20/17 06:00 01/20/17 22:01 01/20/17 15:05 400 MG Gabapentin (Neurontin Cap) 400 mg Q12H PO 01/21/17 10:00 01/21/17 22:01 Gabapentin (Neurontin Cap) 400 mg Q24H PO 01/22/17 22:00 01/22/17 22:01 Chlordiazepoxide (Librium Cap) 25 mg Q8H PO 01/20/17 20:00 01/21/17 12:01 Chlordiazepoxide (Librium Cap) 10 mg Q12H PO 01/22/17 00:00 01/22/17 12:01 Objective Vital Signs Date Time Temp Pulse Resp B/P (MAP) Pulse Ox O2 Delivery O2 Flow Rate FiO2 01/20/17 15:59 37.1 87 20 143/92 (109) 98 Room Air 01/20/17 12:00 Room Air 01/20/17 10:46 36.3 105 20 125/84 (98) 98 Room Air 01/20/17 07:40 Room Air 01/20/17 06:56 37.0 86 16 122/84 (97) 99 Room Air 01/20/17 04:00 Room Air 01/20/17 03:56 36.9 108 17 143/83 (103) 96 Room Air 01/20/17 00:00 Room Air 01/19/17 22:55 37.2 105 16 129/85 (100) 97 Room Air 01/19/17 20:00 Room Air 01/19/17 19:58 37.1 81 18 113/72 (86) 98 Room Air Physical Exam General Appearance: WD/WN, no apparent distress, + thin Neck: supple, trachea midline Respiratory/Chest: chest non-tender, lungs clear, normal breath sounds, no respiratory distress, no accessory muscle use Cardiovascular: regular rate, rhythm, no edema Abdomen: normal bowel sounds, non tender, soft Extremities: non-tender, no pedal edema Neurologic/Psychiatric: alert, normal mood/affect Skin: normal color, warm/dry, no rash Laboratory Results Results Past 24 Hours Test 01/19/17 20:01 01/20/17 00:26 01/20/17 04:55 01/20/17 06:51 Range/Units Sodium Level 129 133 133 136-145 mmol/L Potassium Level 3.6 3.4 3.6 3.5-5.1 mmol/L Chloride Level 97 97 98 98-107 mmol/L Carbon Dioxide Level 29 31 30 21-32 mmol/L Anion Gap 3.0 5.0 5.0 3-11 mmol/L Blood Urea Nitrogen 6 6 5 7-18 mg/dl Creatinine 0.75 0.79 0.72 0.60-1.40 mg/dl Est Creatinine Clear Calc Drug Dose 129.4 122.9 130.9 ml/min Estimated GFR () 133.9 131.1 136.2 Estimated GFR (Non- 115.6 113.1 117.5 BUN/Creatinine Ratio 8.3 7.5 6.3 10-20 Random Glucose 102 83 105 70-99 mg/dl Calcium Level 8.5 8.5 8.5 8.5-10.1 mg/dl Phosphorus Level 3.0 2.5 2.5-4.9 mg/dl Urine Osmolality 512 500-800 mOms/kg Urine Random Sodium 146 mEq/L Urine Random Potassium 10.4 mEq/L White Blood Count 2.63 4.8-10.8 K/uL Red Blood Count 2.83 4.7-6.1 M/uL Hemoglobin 10.0 14.0-18.0 g/dL Hematocrit 28.3 42-52 % Mean Corpuscular Volume 100.0 80-100 fL Mean Corpuscular Hemoglobin 35.3 25-34 pg Mean Corpuscular Hemoglobin Concent 35.3 32-36 g/dl RDW Standard Deviation 46.6 36.4-46.3 fL RDW Coefficient of Variation 12.7 11.5-14.5 % Platelet Count 92 130-400 K/uL Mean Platelet Volume 11.2 7.4-10.4 fL Platelet Estimate DECREASED Albumin 2.9 3.4-5.0 gm/dl Test 01/20/17 11:57 01/20/17 12:38 01/20/17 16:13 Range/Units Sodium Level 130 132 136-145 mmol/L Potassium Level 3.8 3.9 3.5-5.1 mmol/L Chloride Level 97 100 98-107 mmol/L Carbon Dioxide Level 29 27 21-32 mmol/L Anion Gap 4.0 5.0 3-11 mmol/L Blood Urea Nitrogen 5 5 7-18 mg/dl Creatinine 0.72 0.69 0.60-1.40 mg/dl Est Creatinine Clear Calc Drug Dose 130.9 136.6 ml/min Estimated GFR () 136.2 138.6 Estimated GFR (Non- 117.5 119.6 BUN/Creatinine Ratio 6.7 7.6 10-20 Random Glucose 113 105 70-99 mg/dl Calcium Level 8.4 8.4 8.5-10.1 mg/dl Urine Osmolality 318 500-800 mOms/kg Urine Random Sodium 88 mEq/L Urine Random Potassium 18.1 mEq/L Assessment and Plan This is a 41 y/o male with hx HTN and alcohol abuse presented to the hospital with presyncopal episodes and significant hyponatremia. Patient was seen by the primary care doctor for presyncopal episodes and lab works were done. He was later called and informed to come to the ED given significant hyponatremia. In ED his sodium level was 114. Serum osm 279, urine osm 284 and urine protein is 13. His last sodium level was 125. Patient also noted to be confused and intermittent agitation which most likely 2/2 alcohol withdrawal but could also be 2/2 hyponatremia. Transition him to PO folic acid, thiamine and multivitamin , d/dusty banana bag to reduced free water intake * Acute on chronic hyponatremia - Reviewed his past labs, he has always been hyponatremic, baseline in 130s - Patient most likely has hypovolemic hyponatremia. He also has component of beer potomania, given his oral solute intake was very poor. - Nephrology was consulted and he recommended to repeat urine osm, urine sodium and potassium this afternoon - D/dusty D5 per Nephro recommendation, serum sodium goal in the range of 130 with a correction rate of 0.5 - 1.0 mmol/h - Transition him to PO folic acid, thiamine and multivitamin, d/dusty banana bag to reduced free water intake - BMP q4h and phosphorous, replete accordingly - daily monitor I/O - Continue monitor him in Tele * Presyncopal episodes - cardiac vs dehydration - tele admission to assess for potential arrhythmias, no arrhythmias overnight. - ekg was normal in ED - Most likely 2/2 dehydration * Electrolytes abnormalities - 2/2 nausea and vomiting, chronic alcohol and possible dehydration - received 40 meq in ED - Check BMP and phos and replete according. * Anemia secondary to vitamin def vs acute blood loss - most likely secondary to vit def; check folate, Vit B12 - pending - Iron level is normal * Thrombocytopenia most likely secondary to chronic alcohol use - will follow however this may very well be chronic in nature * Transaminitis secondary to alcohol use - AST> ALT which is reflective of alcohol use - if improvement with cessation of alcohol will defer imaging - consider USG if no improvement - Hep Bs and hep C antibody negative * Alcohol abuse - thiamine and folate in ED PO - Transition him to PO folic acid, thiamine and multivitamin, d/dusty banana bag to reduced free water intake - alcohol withdrawal protocol - On gabapentin, Ativan prn and schedule Librium per protocol * HTN - for now will hold labetalol and Benicar - Metoprolol 5 mg IV for HR > 120 and systolic > 180 * DVT prophylaxis - in light of thrombocytopenia will hold chemical prophylaxis, SCD Resident Physician Supervision Note: I was present with the resident during the history and exam. I discussed the case with the resident and agree with the findings and plan as documented in the note. Any exceptions or clarifications are listed here: Please see my note for additional information. Documented By: Enrike Pinon
[2017-01-20] MEDS: CHLORDIAZEPOXIDE 25MG 3RD DOSE PO SCH (20:00)
[2017-01-20] MEDS: SIMVASTATIN 20 MG TAB PO SCH (20:01)
[2017-01-20] MEDS: LORAZEPAM 2 MG/ML 1 ML VIAL IV PRN (22:13)
[2017-01-21] MEDS: CHLORDIAZEPOXIDE 25MG 3RD DOSE PO SCH ×2 (04:14→11:38)
[2017-01-21 04:29] LABS: HEMATOCRIT 27.7 % (42-52); MEAN CELL VOLUME 101.1 fL (80-100); MEAN CORPUSCULAR HEMOGLOBIN 36.1 pg (25-34); MEAN CORPUSCULAR HGB CONC 35.7 g/dl (32-36); MEAN PLATELET VOLUME 11.1 fL (7.4-10.4); PLATELET COUNT 113 K/uL (130-400); RED BLOOD COUNT 2.74 M/uL (4.7-6.1); WHITE BLOOD COUNT 3.44 K/uL (4.8-10.8)
[2017-01-21 04:48] LABS: BUN/CREATININE RATIO 7.3 (10-20); CALCIUM 8.8 mg/dl (8.5-10.1); CREATININE 0.74 mg/dl (0.60-1.40); POTASSIUM 3.8 mmol/L (3.5-5.1)
[2017-01-21 04:49] LABS: PHOSPHORUS 3.1 mg/dl (2.5-4.9)
[2017-01-21 07:32] VITALS: BP 123/86; PULSE 94; TEMP 36.8; O2SAT 99
[2017-01-21] MEDS: GABAPENTIN 400MG Q12H DOSE PO SCH ×2 (08:04→20:42)
[2017-01-21] MEDS: FoLIC ACID TAB 400 MCG TAB PO SCH (08:04)
[2017-01-21] MEDS: THIAMINE HCL 100 MG TAB PO SCH (08:04)
[2017-01-21] MEDS: MULTIVITAMIN TAB PO SCH (08:05)
[2017-01-21 09:13] LABS: BUN/CREATININE RATIO 8.2 (10-20); CREATININE 0.73 mg/dl (0.60-1.40); POTASSIUM 3.2 mmol/L (3.5-5.1)
--- NOTE | 2017-01-21 10:08 | Progress Note ---
Progress Note Date of Service Jan 21, 2017. Progress Note Resident Physician Supervision Note: I interviewed and examined the patient. Discussed with Dr. Valdivia. Please see her documentation for additional details. 41-year-old male admitted with symptomatic severe hyponatremia (114). His serum sodium is now at 133 off of all IV fluids. Upon examination today, he is awake alert and oriented. No obvious symptoms of alcohol withdrawal. The mental status changes he had upon presentation - attributed to the hyponatremia - have all resolved. He still has a Raya catheter in - this was placed on hospital day #2 when he was noted to have acute urinary retention of greater than 1 L. IMPRESSION 1) hyponatremia, severe, symptomatic, improved 2) hypokalemia 3) EtOH abuse 4) elevated liver enzymes, likely secondary to alcohol abuse 5) thrombocytopenia, likely secondary to liver dysfunction (no elevation of PT) PLAN 1) remove Raya catheter. 2) orally replace potassium. 3) consult case management with regards to options for inpatient alcohol treatment. 4) transfer to general medical floor. 5) change BMP ordered to twice daily. Documented By: Enrike Pinon
--- NOTE | 2017-01-21 10:35 | Nephrology Progress Note ---
Nephrology Progress Note Date of Service Jan 21, 2017. Chief Complaint Follow up evaluation of hyponatremia Subjective Mr. Mayo was seen & examined on the telemetry unit this morning. He was alert & oriented to self, place and time. He denied MORFIN or focal weakness. Review of Systems Constitutional: No fever Cardiovascular: No chest pain Abdomen: No pain, No nausea, No vomiting Neurologic: No weakness A complete review of systems was performed. Pertinent positives are noted above. All other systems are negative. Vital Signs Last 8 Hrs Date Time Temp Pulse Resp B/P (MAP) Pulse Ox O2 Delivery O2 Flow Rate FiO2 01/21/17 07:50 Room Air 01/21/17 07:32 36.8 94 18 123/86 (98) 99 Room Air 01/21/17 04:00 Room Air Last Recorded Weight Weight (Kilograms): 69.500 Physical Exam General Appearance: no apparent distress Head: normocephalic, atraumatic Eyes: PERRL, EOMI Neck: no adenopathy Respiratory/Chest: lungs clear Cardiovascular: regular rate, rhythm Abdomen/GI: normal bowel sounds, non tender, soft Extremities/Musculoskelatal: no calf tenderness, no pedal edema Neurologic/Psych: alert, oriented x 3 Family History Cancer Heart disease Hypertension Kidney disease Kidney stones Social History Smokeless Tobacco Use: Yes Alcohol Use: heavy Drug Use: none Marital Status: Housing Status: lives with family Occupation: employed Laboratory Results Past 24 Hours 01/21/17 03:55 01/20/17 11:57 01/20/17 16:13 01/21/17 03:55 01/21/17 08:19 Test 01/20/17 11:57 01/20/17 12:38 01/20/17 16:13 01/21/17 03:55 Anion Gap 4.0 mmol/L (3-11) 5.0 mmol/L (3-11) 5.0 mmol/L (3-11) Est Creatinine Clear Calc Drug Dose 130.9 ml/min 136.6 ml/min 127.4 ml/min Estimated GFR () 136.2 138.6 134.7 Estimated GFR (Non- 117.5 119.6 116.2 BUN/Creatinine Ratio 6.7 (10-20) 7.6 (10-20) 7.3 (10-20) Calcium Level 8.4 mg/dl (8.5-10.1) 8.4 mg/dl (8.5-10.1) 8.8 mg/dl (8.5-10.1) Urine Osmolality 318 mOms/kg (500-800) Urine Random Sodium 88 mEq/L Urine Random Potassium 18.1 mEq/L Red Blood Count 2.74 M/uL (4.7-6.1) Mean Corpuscular Volume 101.1 fL (80-100) Mean Corpuscular Hemoglobin 36.1 pg (25-34) Mean Corpuscular Hemoglobin Concent 35.7 g/dl (32-36) RDW Standard Deviation 46.5 fL (36.4-46.3) RDW Coefficient of Variation 12.7 % (11.5-14.5) Mean Platelet Volume 11.1 fL (7.4-10.4) Nucleated RBC Absolute Count (auto) 0.02 K/uL (0-0) Nucleated Red Blood Cells % 0.7 % Phosphorus Level 3.1 mg/dl (2.5-4.9) Test 01/21/17 08:19 Anion Gap 6.0 mmol/L (3-11) Est Creatinine Clear Calc Drug Dose 133.6 ml/min Estimated GFR () 135.4 Estimated GFR (Non- 116.8 BUN/Creatinine Ratio 8.2 (10-20) Calcium Level 9.0 mg/dl (8.5-10.1) Allergies Coded Allergies: No Known Allergies (Unverified , 01/18/17) Medications Current Inpatient Medications Medications (Trade) Dose Ordered Sig/Bety Route Start Time Stop Time Status Last Admin Dose Admin Al Hydrox/Mg Hydrox/Simethicone (Maalox Max Susp) 15 ml Q4H PRN PO 01/18/17 22:15 02/17/17 22:14 Zolpidem Tartrate (Ambien Tab) 5 mg HSZ PRN PO 01/18/17 22:15 02/17/17 22:14 Ondansetron HCl (Zofran Inj) 4 mg Q6H PRN IV 01/18/17 22:15 02/17/17 22:14 01/19/17 00:46 4 MG Diphenhydramine HCl (Benadryl Cap) 25 mg HS PRN PO 01/18/17 22:15 02/17/17 22:14 Simvastatin (Zocor Tab) 20 mg QPM PO 01/19/17 21:00 02/18/17 20:59 01/20/17 20:01 20 MG Metoprolol Tartrate (Lopressor Iv) 5 mg Q4H PRN IV 01/18/17 22:15 02/17/17 22:14 Folic Acid (Folvite Tab) 400 mcg QAM PO 01/19/17 09:00 02/18/17 08:59 01/21/17 08:04 400 MCG Lorazepam (Ativan Tab) PRN Dosing -Active Protocol UD PRN PO 01/19/17 09:45 02/18/17 09:44 01/20/17 00:00 1 MG Lorazepam (Ativan Inj) PRN Dosing -Active Protocol Q1H PRN IV 01/19/17 09:45 02/18/17 09:44 01/20/17 22:13 1 MG Gabapentin (Neurontin Cap) 400 mg Q12H PO 01/21/17 10:00 01/21/17 22:01 01/21/17 08:04 400 MG Gabapentin (Neurontin Cap) 400 mg Q24H PO 01/22/17 22:00 01/22/17 22:01 Chlordiazepoxide (Librium Cap) 25 mg Q8H PO 01/20/17 20:00 01/21/17 12:01 01/21/17 04:14 25 MG Chlordiazepoxide (Librium Cap) 10 mg Q12H PO 01/22/17 00:00 01/22/17 12:01 Thiamine HCl (Vitamin B-1 Tab) 100 mg QAM PO 01/21/17 09:00 02/20/17 08:59 01/21/17 08:04 100 MG Multivitamins (Multivitamin Tab) 1 tab QAM PO 01/21/17 09:00 02/20/17 08:59 01/21/17 08:05 1 TAB Impression (1) Hyponatremia (2) Hypophosphatemia (3) Hypokalemia (4) Alcohol abuse (5) Transaminitis Mr. Reilly Mayo is a 41-year-old male with hypertension and a history of alcohol abuse. He presented with alcohol intoxication and mental status changes. He has a mild hepatitis with a Maddrey's score of 2.2 on presentation. He had severe hyponatremia. Initial clinical presentation consistent with hypovolemic hyponatremia. He was symptomatic. Oral solute intake was very poor consistent with potomania. Serum sodium on admission on admission was 114 mmol/L. It corrected to 125 mmol/L by yesterday afternoon. Reilly was maintained on 0.9% saline with D5. He was also hypokalemic and hypophosphatemic on presentation and received appropriate replacement. He is also on replacement of thiamine, folic acid and multivitamins. I reviewed with the patient the seriousness of his illness. He is at high risk for CPM given his poor nutritional status, low potassium, history of alcohol abuse and underlying liver disease. I would avoid a rate of rapid correction for his dysnatremia and favor a correction rate of 0.5 - 1.0 mmol/h. At this time, I favor that we keep his serum sodium in the range of 130. Potassium and phosphorus should be monitored regularly and replaced as needed. Urine free water clearance is decreasing. He may not require much IV free water but I did start an infusion this morning (notably while NPO). He is also receiving free water with each banana bag. 1 Liter of free water should bring his serum sodium closer to 130 mmol/L. Metabolic profile will be monitored Q 4 hours. IVF will be adjusted or discontinued accordingly. Urine studies can be repeated as needed based on change in laboratory studies. Reilly will continue to have serial neuro-checks and observational protocol for alcohol withdrawal. Recommendations HYPONATREMIA: -- Serum sodium has nearly corrected. Patient has no focal weakness or neurologic deficit -- Hold IVF and advance diet -- Reduce PRP to twice daily today -- Monitor UO -- Remove vega catheter -- Phosphorus has corrected. Expect potassium will improve further with diet. Continue MVI
[2017-01-21 12:44] VITALS: BP 123/86; PULSE 94; TEMP 36.8; O2SAT 99
[2017-01-21] MEDS ORDERED: POTASSIUM CHLORIDE 20 MEQ TABCR PO ONE (14:45)
--- NOTE | 2017-01-21 14:45 | Family Medicine Progress Note ---
Progress Note Date of Service Jan 21, 2017. Subjective Pt evaluation today including: conversation w/ patient, physical exam, chart review, lab review Pain: denies pain PO Intake: good Voiding: vega catheter in place 41-year-old male with a past medical history of hypertension, alcohol abuse presented to the ER with alcohol intoxication and mental status changes. Was found to be hyponatremic with a serum sodium level of 114 mmol/l which was corrected to about 130 mmol/l Today he states that he is doing really well. Denies any headache, nausea or vomiting, restlessness, palpitations, tremors or shakiness. Constitutional: No fever, No chills Eyes: No worsening of vision ENT: No hearing loss Respiratory: No cough, No sputum Cardiovascular: No chest pain Breast: No breast lump Abdomen: No pain, No nausea, No vomiting Musculoskeletal: No joint pain Male : No dysuria, No urinary frequency Neurologic: No memory loss Psychiatric: No depression symptoms Medications Current Inpatient Medications Medications (Trade) Dose Ordered Sig/Bety Route Start Time Stop Time Status Last Admin Dose Admin Al Hydrox/Mg Hydrox/Simethicone (Maalox Max Susp) 15 ml Q4H PRN PO 01/18/17 22:15 02/17/17 22:14 Zolpidem Tartrate (Ambien Tab) 5 mg HSZ PRN PO 01/18/17 22:15 02/17/17 22:14 Ondansetron HCl (Zofran Inj) 4 mg Q6H PRN IV 01/18/17 22:15 02/17/17 22:14 01/19/17 00:46 4 MG Diphenhydramine HCl (Benadryl Cap) 25 mg HS PRN PO 01/18/17 22:15 02/17/17 22:14 Simvastatin (Zocor Tab) 20 mg QPM PO 01/19/17 21:00 02/18/17 20:59 01/20/17 20:01 20 MG Metoprolol Tartrate (Lopressor Iv) 5 mg Q4H PRN IV 01/18/17 22:15 02/17/17 22:14 Folic Acid (Folvite Tab) 400 mcg QAM PO 01/19/17 09:00 02/18/17 08:59 01/21/17 08:04 400 MCG Lorazepam (Ativan Tab) PRN Dosing -Active Protocol UD PRN PO 01/19/17 09:45 02/18/17 09:44 01/20/17 00:00 1 MG Lorazepam (Ativan Inj) PRN Dosing -Active Protocol Q1H PRN IV 01/19/17 09:45 02/18/17 09:44 01/20/17 22:13 1 MG Gabapentin (Neurontin Cap) 400 mg Q12H PO 01/21/17 10:00 01/21/17 22:01 01/21/17 08:04 400 MG Gabapentin (Neurontin Cap) 400 mg Q24H PO 01/22/17 22:00 01/22/17 22:01 Chlordiazepoxide (Librium Cap) 10 mg Q12H PO 01/22/17 00:00 01/22/17 12:01 Thiamine HCl (Vitamin B-1 Tab) 100 mg QAM PO 01/21/17 09:00 02/20/17 08:59 01/21/17 08:04 100 MG Multivitamins (Multivitamin Tab) 1 tab QAM PO 01/21/17 09:00 02/20/17 08:59 01/21/17 08:05 1 TAB Objective Vital Signs Date Time Temp Pulse Resp B/P (MAP) Pulse Ox O2 Delivery O2 Flow Rate FiO2 01/21/17 12:44 36.8 94 18 123/86 (98) 99 Room Air 01/21/17 11:50 Room Air 01/21/17 07:50 Room Air 01/21/17 07:32 36.8 94 18 123/86 (98) 99 Room Air 01/21/17 04:00 Room Air 01/21/17 00:00 Room Air 01/20/17 22:56 36.8 96 16 129/81 (97) 96 Room Air 01/20/17 22:00 37.1 110 18 128/88 (101) 98 Room Air 01/20/17 20:00 Room Air 01/20/17 19:15 37.0 97 18 130/86 (101) 97 Room Air 01/20/17 16:05 Room Air 01/20/17 15:59 37.1 87 20 143/92 (109) 98 Room Air Physical Exam General Appearance: WD/WN, no apparent distress Eyes: normal inspection ENT: normal ENT inspection, hearing grossly normal Neck: supple Respiratory/Chest: chest non-tender, lungs clear, normal breath sounds, no respiratory distress Cardiovascular: + tachycardia Abdomen: normal bowel sounds, non tender, soft Extremities: normal range of motion, non-tender, no pedal edema Neurologic/Psychiatric: alert, normal mood/affect, oriented x 3 Skin: normal color Laboratory Results Last 24 Hours Test 01/20/17 16:13 01/21/17 03:55 01/21/17 08:19 Sodium Level 132 mmol/L 133 mmol/L 133 mmol/L Potassium Level 3.9 mmol/L 3.8 mmol/L 3.2 mmol/L Chloride Level 100 mmol/L 100 mmol/L 97 mmol/L Carbon Dioxide Level 27 mmol/L 28 mmol/L 30 mmol/L Anion Gap 5.0 mmol/L 5.0 mmol/L 6.0 mmol/L Blood Urea Nitrogen 5 mg/dl 5 mg/dl 6 mg/dl Creatinine 0.69 mg/dl 0.74 mg/dl 0.73 mg/dl Est Creatinine Clear Calc Drug Dose 136.6 ml/min 127.4 ml/min 133.6 ml/min Estimated GFR () 138.6 134.7 135.4 Estimated GFR (Non- 119.6 116.2 116.8 BUN/Creatinine Ratio 7.6 7.3 8.2 Random Glucose 105 mg/dl 89 mg/dl 96 mg/dl Calcium Level 8.4 mg/dl 8.8 mg/dl 9.0 mg/dl White Blood Count 3.44 K/uL Red Blood Count 2.74 M/uL Hemoglobin 9.9 g/dL Hematocrit 27.7 % Mean Corpuscular Volume 101.1 fL Mean Corpuscular Hemoglobin 36.1 pg Mean Corpuscular Hemoglobin Concent 35.7 g/dl RDW Standard Deviation 46.5 fL RDW Coefficient of Variation 12.7 % Platelet Count 113 K/uL Mean Platelet Volume 11.1 fL Nucleated RBC Absolute Count (auto) 0.02 K/uL Nucleated Red Blood Cells % 0.7 % Phosphorus Level 3.1 mg/dl Assessment and Plan 41-year-old male with a past medical history of hypertension, alcohol abuse presented to the ER with alcohol intoxication and mental status changes. Was found to be severely hyponatremic with a serum sodium level of 114 mmol/l with very poor oral intake. Severe hypovolemic hyponatremia: - [facility] initial presentation 114 mmol/L - Was corrected to 125 millimoles per liter by yesterday afternoon, sodium today at 130 mmol/l - Hold IV fluids, check BMP every 12 hours - Monitor potassium and phosphorus Hypokalemia: - K at 3.2, repleted - Monitor BMP Alcohol abuse: - Patient has a chronic history of alcohol abuse drinking an average about 5 beers per day - Alcohol withdrawal protocol - Discussed with egg caser about inpatient/outpatient rehabs - Continue thiamine, folic acid, multivitamin supplements Elevated liver enzymes: - Likely secondary to chronic alcohol use - Hepatitis B and C negative - Continue to monitor Full code DVT prophylaxis: SCDs Disposition: Transfer to [facility] Resident Physician Supervision Note: I was present with Dr. Valdivia during the history and exam. I discussed the case with the resident and agree with the findings and plan as documented in the note. Please see my separate dictation of the same date. Documented By: Enrike Pinon Resident Tracking Resident Involvement: Resident Care Provided Care Provided: Adult Hospital Medicine
[2017-01-21 15:33] VITALS: BP 135/84; PULSE 76; TEMP 37; O2SAT 98
[2017-01-21 16:06] VITALS: BP 135/84; PULSE 76; TEMP 37; O2SAT 98
[2017-01-21 16:15] VITALS: BP 148/73; PULSE 67; TEMP 36.5; O2SAT 96
[2017-01-21 18:45] LABS: BUN/CREATININE RATIO 8.6 (10-20); CALCIUM 9.5 mg/dl (8.5-10.1); CREATININE 0.87 mg/dl (0.60-1.40)
[2017-01-21 20:20] LABS: POTASSIUM 3.8 mmol/L (3.5-5.1)
[2017-01-21] MEDS: SIMVASTATIN 20 MG TAB PO SCH (20:41)
[2017-01-21] MEDS: LORAZEPAM 1 MG TAB PO PRN (20:43)
[2017-01-21 23:30] VITALS: BP 112/78; PULSE 112; TEMP 37.2; O2SAT 99
[2017-01-21] MEDS: CHLORDIAZEPOXIDE 10MG 4TH DOSE PO SCH (23:40)
[2017-01-22 07:06] LABS: BUN/CREATININE RATIO 10.1 (10-20); CALCIUM 9.1 mg/dl (8.5-10.1); CREATININE 0.77 mg/dl (0.60-1.40); PHOSPHORUS 2.9 mg/dl (2.5-4.9); POTASSIUM 3.6 mmol/L (3.5-5.1)
[2017-01-22 07:25] VITALS: BP 117/77; PULSE 104; TEMP 36.5; O2SAT 97
[2017-01-22 07:55] LABS: MEAN CELL VOLUME 102.2 fL (80-100); MEAN CORPUSCULAR HEMOGLOBIN 35.3 pg (25-34); MEAN CORPUSCULAR HGB CONC 34.5 g/dl (32-36); PLATELET COUNT 181 K/uL (130-400); RED BLOOD COUNT 3.23 M/uL (4.7-6.1); WHITE BLOOD COUNT 4.61 K/uL (4.8-10.8)
[2017-01-22] MEDS: THIAMINE HCL 100 MG TAB PO SCH (08:13)
[2017-01-22] MEDS: MULTIVITAMIN TAB PO SCH (08:13)
[2017-01-22] MEDS: FoLIC ACID TAB 400 MCG TAB PO SCH (08:13)
--- NOTE | 2017-01-22 11:08 | Nephrology Progress Note ---
Nephrology Progress Note Date of Service Jan 22, 2017. Chief Complaint Follow up evaluation of hyponatremia Subjective Mr. Mayo was seen & examined in his hospital room this morning. He is alert and oriented x 3. He denies MORFIN or focal neurologic weakness. Mr. Mayo has been voiding without difficulty since his vega catheter has been removed. He reports that he is tolerating a regular diet. Mr. Mayo readily acknowledges that he had been binge drinking. He intends to seek counseling to stop drinking. He notes that his family is very supportive and will help him to stay sober. Review of Systems Constitutional: No fever Cardiovascular: No angina Respiratory: No dyspnea at rest Abdomen: No pain, No nausea, No vomiting Genitourinary - Male: No dysuria Extremities: No leg edema Psychiatric: No depression symptoms A complete review of systems was performed. Pertinent positives are noted above. All other systems are negative. Vital Signs Last 8 Hrs Date Time Temp Pulse Resp B/P (MAP) Pulse Ox O2 Delivery O2 Flow Rate FiO2 01/22/17 08:10 Room Air 01/22/17 07:25 36.5 104 18 117/77 (90) 97 Room Air Last Recorded Weight Weight (Kilograms): 69.500 Physical Exam General Appearance: no apparent distress Head: normocephalic, atraumatic Eyes: PERRL, EOMI Neck: no adenopathy Respiratory/Chest: lungs clear Cardiovascular: regular rate, rhythm Abdomen/GI: normal bowel sounds, non tender, soft Extremities/Musculoskelatal: no calf tenderness, no pedal edema Neurologic/Psych: alert, oriented x 3 Family History Cancer Heart disease Hypertension Kidney disease Kidney stones Social History Smokeless Tobacco Use: Yes Alcohol Use: heavy Drug Use: none Marital Status: Housing Status: lives with family Occupation: employed Laboratory Results Past 24 Hours 01/22/17 06:26 01/21/17 18:09 01/22/17 06:26 Test 01/21/17 18:09 01/22/17 06:26 Anion Gap 6.0 mmol/L (3-11) 5.0 mmol/L (3-11) Est Creatinine Clear Calc Drug Dose 112.1 ml/min 126.6 ml/min Estimated GFR () 126.0 132.5 Estimated GFR (Non- 108.7 114.3 BUN/Creatinine Ratio 8.6 (10-20) 10.1 (10-20) Calcium Level 9.5 mg/dl (8.5-10.1) 9.1 mg/dl (8.5-10.1) Red Blood Count 3.23 M/uL (4.7-6.1) Mean Corpuscular Volume 102.2 fL (80-100) Mean Corpuscular Hemoglobin 35.3 pg (25-34) Mean Corpuscular Hemoglobin Concent 34.5 g/dl (32-36) Phosphorus Level 2.9 mg/dl (2.5-4.9) Allergies Coded Allergies: No Known Allergies (Unverified , 01/18/17) Medications Current Inpatient Medications Medications (Trade) Dose Ordered Sig/Bety Route Start Time Stop Time Status Last Admin Dose Admin Al Hydrox/Mg Hydrox/Simethicone (Maalox Max Susp) 15 ml Q4H PRN PO 01/18/17 22:15 02/17/17 22:14 Zolpidem Tartrate (Ambien Tab) 5 mg HSZ PRN PO 01/18/17 22:15 02/17/17 22:14 Ondansetron HCl (Zofran Inj) 4 mg Q6H PRN IV 01/18/17 22:15 02/17/17 22:14 01/19/17 00:46 4 MG Diphenhydramine HCl (Benadryl Cap) 25 mg HS PRN PO 01/18/17 22:15 02/17/17 22:14 Simvastatin (Zocor Tab) 20 mg QPM PO 01/19/17 21:00 02/18/17 20:59 01/21/17 20:41 20 MG Metoprolol Tartrate (Lopressor Iv) 5 mg Q4H PRN IV 01/18/17 22:15 02/17/17 22:14 Folic Acid (Folvite Tab) 400 mcg QAM PO 01/19/17 09:00 02/18/17 08:59 01/22/17 08:13 400 MCG Lorazepam (Ativan Tab) PRN Dosing -Active Protocol UD PRN PO 01/19/17 09:45 02/18/17 09:44 01/21/17 20:43 1 MG Lorazepam (Ativan Inj) PRN Dosing -Active Protocol Q1H PRN IV 01/19/17 09:45 02/18/17 09:44 01/20/17 22:13 1 MG Gabapentin (Neurontin Cap) 400 mg Q24H PO 01/22/17 22:00 01/22/17 22:01 Chlordiazepoxide (Librium Cap) 10 mg Q12H PO 01/22/17 00:00 01/22/17 12:01 01/21/17 23:40 10 MG Thiamine HCl (Vitamin B-1 Tab) 100 mg QAM PO 01/21/17 09:00 02/20/17 08:59 01/22/17 08:13 100 MG Multivitamins (Multivitamin Tab) 1 tab QAM PO 01/21/17 09:00 02/20/17 08:59 01/22/17 08:13 1 TAB Impression (1) Hyponatremia (2) Hypophosphatemia (3) Hypokalemia (4) Alcohol abuse (5) Transaminitis Mr. Mayo is a 41-year-old male with hypertension and a history of alcohol abuse. He presented with alcohol intoxication and mental status changes. He has a mild hepatitis with a Maddrey's score of 2.2 on presentation. He had severe hyponatremia. Initial clinical presentation consistent with hypovolemic hyponatremia. He was symptomatic. Oral solute intake was very poor consistent with potomania. Serum sodium on admission on admission was 114 mmol/L. He was also hypokalemic and hypophosphatemic on presentation and received appropriate replacement. Recommendations HYPONATREMIA: -- Serum sodium has corrected. Patient has no focal weakness or neurologic deficit -- Continue regular diet w/ liberal NaCl -- Reduce PRP to daily -- No further Nephrology evaluation needed at this time. Will sign off. Please call if further assistance is needed.
[2017-01-22] MEDS: CHLORDIAZEPOXIDE 10MG 4TH DOSE PO SCH (11:44)
[2017-01-22 15:46] VITALS: BP 112/73; PULSE 114; TEMP 36.2; O2SAT 98
--- NOTE | 2017-01-22 16:26 | Family Medicine Progress Note ---
Progress Note Date of Service Jan 22, 2017. Subjective Pt evaluation today including: conversation w/ patient, conversation w/ family , physical exam, chart review, lab review Pain: no pain PO Intake: good Voiding: no voiding problems doing well. denies any CP/palpitations/restlessness/shakiness. Constitutional: No fever, No chills Eyes: No worsening of vision ENT: No hearing loss Respiratory: No cough, No sputum Cardiovascular: No chest pain Abdomen: No pain, No nausea Male : No dysuria, No urinary frequency Neurologic: No memory loss Psychiatric: No depression symptoms Heme: No abnormal bleeding/bruising Medications Current Inpatient Medications Medications (Trade) Dose Ordered Sig/Bety Route Start Time Stop Time Status Last Admin Dose Admin Al Hydrox/Mg Hydrox/Simethicone (Maalox Max Susp) 15 ml Q4H PRN PO 01/18/17 22:15 02/17/17 22:14 Zolpidem Tartrate (Ambien Tab) 5 mg HSZ PRN PO 01/18/17 22:15 02/17/17 22:14 Ondansetron HCl (Zofran Inj) 4 mg Q6H PRN IV 01/18/17 22:15 02/17/17 22:14 01/19/17 00:46 4 MG Diphenhydramine HCl (Benadryl Cap) 25 mg HS PRN PO 01/18/17 22:15 02/17/17 22:14 Simvastatin (Zocor Tab) 20 mg QPM PO 01/19/17 21:00 02/18/17 20:59 01/21/17 20:41 20 MG Metoprolol Tartrate (Lopressor Iv) 5 mg Q4H PRN IV 01/18/17 22:15 02/17/17 22:14 Folic Acid (Folvite Tab) 400 mcg QAM PO 01/19/17 09:00 02/18/17 08:59 01/22/17 08:13 400 MCG Lorazepam (Ativan Tab) PRN Dosing -Active Protocol UD PRN PO 01/19/17 09:45 02/18/17 09:44 01/21/17 20:43 1 MG Lorazepam (Ativan Inj) PRN Dosing -Active Protocol Q1H PRN IV 01/19/17 09:45 02/18/17 09:44 01/20/17 22:13 1 MG Gabapentin (Neurontin Cap) 400 mg Q24H PO 01/22/17 22:00 01/22/17 22:01 Thiamine HCl (Vitamin B-1 Tab) 100 mg QAM PO 01/21/17 09:00 02/20/17 08:59 01/22/17 08:13 100 MG Multivitamins (Multivitamin Tab) 1 tab QAM PO 01/21/17 09:00 02/20/17 08:59 01/22/17 08:13 1 TAB Objective Vital Signs Date Time Temp Pulse Resp B/P (MAP) Pulse Ox O2 Delivery O2 Flow Rate FiO2 01/22/17 15:46 36.2 114 16 112/73 (86) 98 Room Air 01/22/17 11:43 18 01/22/17 08:10 Room Air 01/22/17 07:25 36.5 104 18 117/77 (90) 97 Room Air 01/22/17 00:00 Room Air 01/21/17 23:30 37.2 112 20 112/78 (89) 99 Room Air 01/21/17 20:45 Room Air Physical Exam General Appearance: WD/WN, no apparent distress Eyes: normal inspection ENT: hearing grossly normal Neck: supple Respiratory/Chest: lungs clear, normal breath sounds, no respiratory distress, no accessory muscle use Cardiovascular: + tachycardia Abdomen: normal bowel sounds, non tender Extremities: non-tender Neurologic/Psychiatric: alert, normal mood/affect, oriented x 3 Skin: normal color Laboratory Results 01/22/17 06:26 01/22/17 06:26 Test 01/22/17 06:26 Red Blood Count 3.23 M/uL (4.7-6.1) Mean Corpuscular Volume 102.2 fL (80-100) Mean Corpuscular Hemoglobin 35.3 pg (25-34) Mean Corpuscular Hemoglobin Concent 34.5 g/dl (32-36) Anion Gap 5.0 mmol/L (3-11) Est Creatinine Clear Calc Drug Dose 126.6 ml/min Estimated GFR () 132.5 Estimated GFR (Non- 114.3 BUN/Creatinine Ratio 10.1 (10-20) Calcium Level 9.1 mg/dl (8.5-10.1) Phosphorus Level 2.9 mg/dl (2.5-4.9) Assessment and Plan 41-year-old male with a past medical history of hypertension, alcohol abuse presented to the ER with alcohol intoxication and mental status changes. Was found to be severely hyponatremic with a serum sodium level of 114 mmol/l with very poor oral intake. Severe hypovolemic hyponatremia: resolved - Serum sodium at initial presentation 114 mmol/L - currently at 135 mmol/L - check BMP qdaily - Monitor potassium and phosphorus Tachycardia: - likely combination of anxiety, withdrawal and rebound from holding labetalol - will restart labetalol HTN: diagnosed at age 21, US for ISABELA -ve, abd MRI -ve for adrenal tumors - was on labetalol and Benicar at home which were held on admission - restart labetalol today and monitor BP - consider restarting Benicar tomorrow Alcohol abuse: - Patient has a chronic history of alcohol abuse drinking an average about 5 beers per day - Alcohol withdrawal protocol - Discussed with case planner about inpatient/outpatient rehabs - prefers OP rehab, [facility] is on board - Continue thiamine, folic acid, multivitamin supplements Elevated liver enzymes: - Likely secondary to chronic alcohol use - Hepatitis B and C negative - Continue to monitor Full code DVT prophylaxis: SCDs Disposition: Transfer to [facility] Resident Physician Supervision Note: I interviewed and examined the patient. Discussed with Dr. Valdivia and agree with findings and plan as documented in the note. Any exceptions or clarifications are listed here: Agree with re-addition of labetalol; this may also be helpful in terms of anxiety. We'll hold off on restarting MUKESH inhibitor - given his current blood pressure readings he may need eat half of his home dose upon discharge. Documented By: Enrike Pinon Resident Tracking Resident Involvement: Resident Care Provided Care Provided: Adult Hospital Medicine Resident Tracking Resident Involvement: Resident Care Provided Care Provided: Adult [facility] Medicine
[2017-01-22 19:10] VITALS: BP 125/89; PULSE 112
[2017-01-22] MEDS: SIMVASTATIN 20 MG TAB PO SCH (19:13)
[2017-01-22] MEDS: LABETALOL HCL 100 MG TAB PO SCH (19:13)
[2017-01-22] MEDS ORDERED: GABAPENTIN 400MG X1 DOSE PO SCH (22:00)
[2017-01-22 23:53] VITALS: BP 131/90; PULSE 120; TEMP 37.4; O2SAT 98
[2017-01-23 07:06] VITALS: BP 122/88; PULSE 90; TEMP 36.4; O2SAT 100
[2017-01-23 07:43] LABS: HEMATOCRIT 30.8 % (42-52); MEAN CELL VOLUME 104.8 fL (80-100); MEAN CORPUSCULAR HEMOGLOBIN 35.7 pg (25-34); MEAN CORPUSCULAR HGB CONC 34.1 g/dl (32-36); MEAN PLATELET VOLUME 9.8 fL (7.4-10.4); PLATELET COUNT 209 K/uL (130-400); RED BLOOD COUNT 2.94 M/uL (4.7-6.1)
[2017-01-23] MEDS: FoLIC ACID TAB 400 MCG TAB PO SCH (08:12)
[2017-01-23] MEDS: LABETALOL HCL 100 MG TAB PO SCH (08:12)
[2017-01-23] MEDS: MULTIVITAMIN TAB PO SCH (08:12)
[2017-01-23] MEDS: THIAMINE HCL 100 MG TAB PO SCH (08:12)
[2017-01-23 08:14] LABS: CALCIUM 9.3 mg/dl (8.5-10.1); CREATININE 0.71 mg/dl (0.60-1.40); POTASSIUM 3.8 mmol/L (3.5-5.1)
[2017-01-23 08:21] LABS: PHOSPHORUS 3.7 mg/dl (2.5-4.9)
--- NOTE | 2017-01-23 10:17 | Family Medicine Progress Note ---
Progress Note Date of Service Jan 23, 2017.
[2017-01-23 14:21] VITALS: BP 122/88; PULSE 90; TEMP 36.4; O2SAT 100
--- NOTE | 2017-01-23 14:30 | Discharge Instructions ---
Discharge Instructions Date of Service Jan 23, 2017. Admission Reason for Admission: Hypokalemia, Hyponatremia Discharge Discharge Diagnosis / Problem: Acute Alcohol Toxicity, Discharge Goals Goal(s): Decrease discomfort, Improve function, Increase independence, Improve disease control, Improve nutritional status, Learn about illness, Diagnostic testing, Therapeutic intervention, Screening, Prevent Disease Progression, Specific goals Activity Recommendations Activity Limitations: resume your previous activity . Instructions / Follow-Up Instructions / Follow-Up DISCHARGE INSTRUCTIONS: Please attend Outpatient Rehabilitation as discussed. Please follow up with Primary care Provider Call 911 for any of the following: You feel like you want to harm yourself or others. Return to the emergency department if: You have sudden chest pain or trouble breathing. Your breathing or heartbeat is faster than usual. You pass out or think you had a seizure. You are confused, hallucinating, or extremely agitated. You cannot stop vomiting, or you vomit blood. You are shaking and it does not get better after you take your medicine. Contact your healthcare provider if: You keep drinking to avoid alcohol withdrawal symptoms. You need help to stop drinking alcohol. You have trouble with work, relationships, or school because you drink too much alcohol. You get into fights because of alcohol. You have questions or concerns about your condition or care. Current Hospital Diet Patient's current hospital diet: AHA Diet (Heart Healthy) Discharge Diet Recommended Diet: Regular Diet Pending Studies Studies pending at discharge: no Medical Emergencies . Who to Call and When: Medical Emergencies: If at any time you feel your situation is an emergency, please call 911 immediately. . Non-Emergent Contact Non-Emergency issues call your: Primary Care Provider Call Non-Emergent contact if: you have a fever, your pain is unusual for you, your pain is concerning you, you have any medication questions . . "Provider Documentation" section prepared by Tavon Lino. . VTE Core Measure Inpt VTE Proph given/why not?: SCD's Resident Tracking Resident Involvement: Resident Care Provided Care Provided: Adult Hospital Medicine
--- NOTE | 2017-01-26 06:44 | Discharge Summary ---
Discharge Summary Date of Service Jan 23, 2017. (Tavon Lino MD) Discharge Summary Admission Date: Jan 18, 2017 at 22:10 Discharge Date: Jan 23, 2017 Discharge Disposition: Home Principal Diagnosis: Alcohol abuse, Hyponatremia Consultations: Nephrology (Tavon Lino MD) Medication Reconciliation Continued Medications: Diphenhydramine Hcl (Benadryl Allergy) 25 Mg Cap 1-2 CAP PO HS PRN for Sleep, CAP Labetalol (Normodyne) 200 Mg Tab 0.5 TAB PO BID, TAB Lorazepam (Ativan) 0.5 Mg Tab 0.5 MG PO PRN, TAB Olmesartan Medoxomil (Olmesartan Medoxomil) 40 Mg Tab 1 TAB PO DAILY Simvastatin (Zocor) 20 Mg Tab 20 MG PO QPM, TAB Discharge Exam GENERAL: alert, well appearing, well nourished, no distress, non-toxic EYE EXAM: normal conjunctiva, PERRL and EOM's grossly intact OROPHARYNX: no exudate, no erythema, lips, buccal mucosa, and tongue normal and mucous membranes are moist NECK: supple, no nuchal rigidity, no adenopathy, non-tender LUNGS: Clear to auscultation. Normal chest wall mechanics HEART: no murmurs, S1 normal and S2 normal ABDOMEN: abdomen soft, non-tender, normo-active bowel sounds, no masses, no rebound or guarding. SKIN: no rashes and no bruising UPPER EXTREMITIES: upper extremities are grossly normal. LOWER EXTREMITIES: No pitting edema. NEURO EXAM: Normal sensorium, cranial nerves II-XII grossly intact, normal speech, no gross weakness of arms, no gross weakness of legs. (Tavon Lino MD) see on the day of discharge Review of Systems: Constitutional: No fever Respiratory: No shortness of breath Cardiovascular: No chest pain Physical Exam: General Appearance: no apparent distress Respiratory/Chest: lungs clear, no respiratory distress Cardiovascular: regular rate, rhythm Abdomen / GI: normal bowel sounds, non tender, soft Neurologic/Psychiatric: alert, oriented x 3 Skin: warm/dry (Holli Chakraborty M.D.) Hospital Course This is a 41 yo m with a history of HTN and alcohol abuse that is presenting to the ED with presyncopal episodes upon standing x 2 weeks and N&V x 1 week. 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 He notes that when he typically is under stress he stops eating and drinking completely and will only drink beer. He states that he normally drinks 5-6 beers in a day however since this stress started he has been drinking 10+ beers/ day. Over the past two weeks he has been having almost daily presyncopal episodes in particularly when he is getting up out of bed. He had two while at work and the second was noticed by his boss and he was told to be cleared from a physician to work before he could return to work. He went to the PCP today where lab work was done and as his blood pressure was low , they decreased his bp medications. He was contacted by the PCP when labs returned as they reflected hyponatremia and transaminitis and he was told to go to the ED for further evaluation. In the ED he was evaluated and found to be critically hyponatremic, thrombocytopenic and anemic. He was started on NSS @ 125cc/h in the ED. He currently denies any pain in his abdomen and Nausea has subsided with ondansetron. He denies ever having any chest pain or palpitations with the presyncopal episodes. He denies any change in urine or bowel habits nor any blood in his stool. Course Acute on chronic hyponatremia - Reviewed his past labs, he has always been hyponatremic, baseline in 130s - Patient most likely has hypovolemic hyponatremia. - D/dusty D5 per Nephro recommendation, serum sodium goal in the range of 130 with a correction rate of 0.5 - 1.0 mmol/h - Transitioned him to PO folic acid, thiamine and multivitamin, d/dusty banana bag to reduced free water intake -BY end of hospital stay Hyponatremia had resolved with Na of 136 prior to discharge Presyncopal episodes - cardiac vs dehydration - tele admission to assess for potential arrhythmias, no arrhythmias - ekg was normal in ED - Most likely 2/2 dehydration Hypokalemia, Hypophosphatemia -repleted during admission Anemia, Thrombocytopenia - attributed to vit def - Iron level founf to be normal -Thrombocytopenia attributed to chronic alcohol use Transaminitis secondary to alcohol use - AST> ALT which is reflective of alcohol use - Hep Bs and hep C antibody negative -LFTS trended down prior to discharge Alcohol abuse - Given thiamine and folate in ED PO - Transitioned him to PO folic acid, thiamine and multivitamin, d/dusty banana bag to reduced free water intake - placed on alcohol withdrawal protocol - gabapentin, Ativan prn and schedule Librium per protocol DVT prophylaxis - in light of thrombocytopenia will hold chemical prophylaxis, SCD Disposition: Patient was discharged and agreed to attend outpatient rehab Total Time Spent: Less than 30 minutes This includes examination of the patient, discharge planning, medication reconciliation, and communication with other providers. (Tavon Lino MD) Resident Physician Supervision Note: I was present with Dr. Lino in bedside. I verified the lin history and physical, reviewed labs and image studies, discussed the case with the resident and agree with the findings and care plan. Total Time Spent: Greater than 30 minutes (35) (Holli Chakraborty M.D.) Discharge Instructions Please refer to the electronic Patient Visit Report (Discharge Instructions) for additional information. (Tavon Lino MD) Additional Copies To Ruben Zhang M.D.
== END 2017-01-23 15:01 | disposition home or self-care (01) | DRG 641 ==
LOC: C.EDB 19:28 → C.2T 22:10 → ENRESERV 22:34 → C.4E 01-21 15:59
PROVIDERS: ADMIT Internal Medicine; ATTEND Family Medicine
DX: E87.1 Hypo-osmolality and hyponatremia (principal); E87.6 Hypokalemia; R74.0 Nonspecific elevation of levels of transaminase and lactic acid dehydrogenase [LDH]; I10 Essential (primary) hypertension; Z84.1 Family history of disorders of kidney and ureter; F10.10 Alcohol abuse, uncomplicated; D64.9 Anemia, unspecified; Z82.49 Family history of ischemic heart disease and other diseases of the circulatory system; Z80.9 Family history of malignant neoplasm, unspecified

== ENCOUNTER 2025-04-22 13:04 | Inpatient (IN) ==
--- NOTE | 2025-04-22 13:23 | Emergency Department Note ---
Impression & Plan Closed fracture of right fibula and tibia ED Provider Note Provider: Teo Vines MD CHIEF COMPLAINT: Fall, right leg injury HISTORY OF PRESENT ILLNESS: Patient is a 50-year-old known history of hypertension and hyperlipidemia presenting here today after a hunting accident. Patient was walking [place] through the [place] and on uneven ground lost his balance and fell. His right leg got stuck between a log and a rock and as he fell twisted. Menard a pop and breaks out and then had immediate pain in his right lower leg and was unable to walk. Was able to contact family and later 911 and the ambulance who splinted and brought here for further evaluation. Patient denies any head injury loss conscious. Denies any other injury to the extremities beyond the right lower leg and ankle. Notes history of surgery here. Not on blood thinners or aspirin. Received [facility] with some improvement of pain. Denies numbness or tingling of the right foot. Last ate around 8 AM this morning. Some sticker bars. 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 EOMI. NECK: Trachea midline. Good range of motion ENT: Mucous membranes pink and moist. LUNGS: Airway patent. No retractions. Breath sounds clear HEART: Regular rate and rhythm. No chest wall tenderness ABDOMEN: Soft and non-tender, without guarding or rebound. SKIN: Acyanotic, warm, dry, without rashes EXTREMITIES: Without swelling, tenderness or deformity except for splinting in place in the right lower extremity. This was removed with assisting of nursing and evidence of contusion and tenderness of the right distal lower leg without wound/laceration noted. Intact distal sensation to the toes and foot with intact toe wiggle. Obvious lateral rotation of the right foot in comparison to the right florentino and knee. 2+ right DP pulse. NEUROLOGICAL: No focal deficits. No aphasia. No facial droop or slurred speech. Normal strength and tone in the extremities. Sensation to gross touch normal. CONTINUOUS CARDIAC MONITORING: was ordered and showed a heart rate of bpm in PDMP was checked without noted issue. Patient's laboratory studies and imaging reviewed. Differential includes Fracture, subluxation, dislocation, contusion, ligamentous injury, neurovascular, compartment syndrome, rhabdomyolysis, as well as other pathologies. IMPRESSION/MEDICAL DECISION MAKING: Seemingly isolated injury to the right lower leg. Neurovascularly intact. Obvious deformity. No open wounds or laceration. Does not seem like open fracture. No evidence compartment syndrome currently. Basic labs obtained. Patient n.p.o. this since this morning. Given some fentanyl here for pain nursing some prior to arrival. X-ray obtained to evaluate extent injury pattern. No significant tenderness of the knee or overlying the foot and I doubt knee or metatarsal injury. X-rays show a distal spiral displaced tibial fracture but again clinically is closed. Proximal and right fibular neck fracture noted. Reached out to orthopedics on-call Dr. Tripp to discuss findings and plan of care. His physician pharmacy innovation assistant and team evaluated the patient here. Patient was given some Tylenol and additional IV fentanyl and was splinted by the orthopedic PA here with the assistance of staff. Orthopedics will admit for surgery tomorrow. DIAGNOSIS: Right tib-fib fracture DISPOSITION: Admission for surgical repair by orthopedic Patient and family were updated and agreeable with this plan Past Med/Surg History Problem List Closed fracture of right fibula and tibia (Acute) Hypertension (Chronic) Hypokalemia Hyponatremia Hypophosphatemia Social History Smoking Status: Never smoker Preferred Language: Malian Feels Safe at Home: Yes Allergies Allergies Allergy/AdvReac Type Severity Reaction Status Date / Time No Known Allergies Allergy Unverified 01/18/17 21:16 Home Meds Home Medications Medication Instructions Recorded Confirmed DIPHENHYDRAMINE HCL (BENADRYL 1 - 2 cap PO HS PRN Sleep #0 caps 01/18/17 ALLERGY) LORAZEPAM (ATIVAN) 0.5 mg PO PRN #0 tabs 01/18/17 Olmesartan Medoxomil 1 tab PO DAILY ##0 01/18/17 Simvastatin (Zocor) 20 mg PO QPM #0 tabs 01/18/17 Previous Rx's Medication Instructions Recorded labetalol 200 mg tablet 100 mg (1/2 x 200 mg) PO BID #90 11/19/18 tabs Results & Data (ED) Vital Signs Vital Signs - 24 hr 04/22/25 13:12 04/22/25 13:16 04/22/25 15:29 Temperature 37.1 C Temperature Source Oral Pulse Rate 91 H 88 Pulse Rate [Apical] 84 Pulse Rhythm Regular Pulse Rhythm [Apical] Regular Respiratory Rate 18 18 Respiratory Effort / Characteristics Non-Labored Spontaneous Non-Labored Spontaneous Respiratory Depth Normal Normal Respiratory Pattern Regular Regular Blood Pressure 132/97 Blood Pressure [Right Arm] 142/105 H Blood Pressure Mean 108 Blood Pressure Mean [Right Arm] 117 Pulse Oximetry 97 95 Oxygen Delivery Method Room Air Room Air Sepsis Recent Fever Within 48 Hours No Sepsis New/Unexplained Change in Mental Status No Sepsis Action Taken by Nursing No Action Required Laboratory Data 04/22/25 13:28 04/22/25 13:28 Lab Results 04/22/25 Range/Units 13:28 WBC 9.90 (4.8-10.8) K/ul RBC 4.96 (4.70-6.10) M/uL Hgb 15.2 (14.0-18.0) g/dL Hct 43.8 (42.0-52.0) % MCV 88.3 (80.0-100.0) fL MCH 30.6 (25.0-34.0) pg MCHC 34.7 (32.0-36.0) g/dL RDW Std Deviation 41.0 (36.4-46.3) fL RDW Coeff of Isidoro 12.7 (11.5-14.5) % Plt Count 246 (130-400) K/uL MPV 9.9 (9.4-12.4) fL Immature Gran % (Auto) 0.3 % Neut % (Auto) 84.3 % Lymph % (Auto) 6.7 % [place] % (Auto) 8.0 % Eos % (Auto) 0.4 % Baso % (Auto) 0.3 % Neut # (Auto) 8.35 H (1.40-6.50) K/uL Lymph # (Auto) 0.66 L (1.20-3.40) K/uL [place] # (Auto) 0.79 H (0.11-0.59) K/uL Eos # (Auto) 0.04 (0.00-0.50) K/uL Baso # (Auto) 0.03 (0.00-0.20) K/uL Immature Gran # (Auto) 0.03 (0.01-0.20) K/uL Sodium 140 (136-145) mmol/L Potassium 3.9 (3.5-5.1) mmol/L Chloride 105 (98-107) mmol/L Carbon Dioxide 27 (21-32) mmol/L Anion Gap 8 (3-11) BUN 14 (6-23) mg/dl Creatinine 0.72 (0.6-1.4) mg/dl Est Cr Clr Drug Dosing 150.5 ml/min eGFR 112.70 BUN/Creatinine Ratio 19.4 (10-20) Glucose 106 H (70-99(Fasting)) mg/dl Calcium 9.2 (8.6-10.3) mg/dl Total Bilirubin 0.6 (0.2-1.0) mg/dl AST 36 (13-39) U/L ALT 57 H (7-52) U/L Alkaline Phosphatase 65 (34-104) U/L Total Protein 8.2 (6.0-8.3) gm/dl Albumin 4.2 (3.4-5.0) gm/dl Globulin 4.0 (2.5-4.0) gm/dl Albumin/Globulin Ratio 1.1 (0.9-2) Administered Medications Discontinued Medications Fentanyl Citrate (Fentanyl Citrate Pf 100 Mcg/2 Ml Vial) 100 mcg IV NOW STA Stop: 04/22/25 13:17 Last Admin: 04/22/25 13:21 Dose: 100 mcg Documented By: CARMEN Fentanyl Citrate (Fentanyl Citrate Pf 100 Mcg/2 Ml Vial) Confirm Administered Dose 100 mcg .ROUTE .RUST-MED ONE Stop: 04/22/25 15:37 Last Admin: 04/22/25 15:40 Dose: Not Given Documented By: SHABANA Fentanyl Citrate (Fentanyl Citrate Pf 100 Mcg/2 Ml Vial) 100 mcg IV NOW STA Stop: 04/22/25 15:38 Last Admin: 04/22/25 15:40 Dose: 100 mcg Documented By: SHABANA Acetaminophen (Ofirmev) 1,000 mg in 100 mls @ 400 mls/hr IV NOW STA Stop: 04/22/25 14:41 Last Infusion: 04/22/25 14:49 Dose: Infused Documented By: nicky Admin: 04/22/25 14:32 Dose: 400 mls/hr Documented By: nicky Imaging Data Radiologist's Impression: Ankle X-Ray 04/22/25 13:16 RIGHT ANKLE 2 VIEWS CLINICAL HISTORY: Fall. Right ankle injury. FINDINGS: Crosstable AP and lateral views of the right ankle are obtained. No prior studies are available for comparison at the time of dictation. The skeletal structures are well mineralized. There is a comminuted, mildly angulated, and displaced spiral fracture through the distal tibial diaphysis. There is lateral displacement of the distal fragment by approximately one shaft length, as well as overriding of fragments. Overlying soft tissue edema is observed. The distal fibula appears intact. The ankle mortise is maintained. IMPRESSION: Distal tibial shaft fracture as above. Electronically signed by: Luis Miguel Ruffin M.D. 04/22/2025 2:11 PM Tibia/Fibula X-Ray 04/22/25 13:16 XR tibia fibula RT 2V CLINICAL HISTORY: Fall. Fracture. COMPARISON: None FINDINGS: Note is made of an acute oblique moderately displaced fracture through the distal diaphysis of the right tibia, located at the junction of the middle and distal thirds of the tibial diaphysis. Fracture is displaced 1.8 cm. There is also an acute oblique minimally displaced fracture of the neck and proximal shaft of the right fibula. No ankle mortise widening is identified. Please note that the right ankle radiographs will be reported separately. IMPRESSION: 1. Acute moderately displaced oblique distal diaphyseal right tibial fracture. 2. Acute oblique minimally displaced fracture of the neck and proximal shaft of the right fibula. ACT 112: Negative or not required by law. Electronically signed by: Gustabo Angeles M.D. 04/22/2025 2:09 PM Discharge Plan Visit Data Chief Complaint: Fall Stated Complaint: FALL, R ANKLE & LOWER LEG FX ED Provider: Teo Vines Discharge Problem: Closed fracture of right fibula and tibia Patient Disposition: Being Evaluated by Surgeon Condition: Fair Forms Stand Alone Forms: [facility] Referrals Referrals: Ruben Zhang MD [Physician] - Discharge Problem: Closed fracture of right fibula and tibia Qualifiers: Encounter type: initial encounter Qualified Code(s): S82.201A - Unspecified fracture of shaft of right tibia, initial encounter for closed fracture
[2025-04-22 13:46] LABS: Hematocrit (blood only) 43.8 % (42.0-52.0); Hemoglobin 15.2 g/dL (14.0-18.0); Immature Granulocytes # (auto) 0.03 K/uL (0.01-0.20); Immature Granulocytes % (auto) 0.3 %; Mean Corpuscular Hemoglobin 30.6 pg (25.0-34.0); Mean Corpuscular Volume 88.3 fL (80.0-100.0); Platelet Count 246 K/uL (130-400); RDW Standard Deviation 41.0 fL (36.4-46.3); Red Blood Count 4.96 M/uL (4.70-6.10); White Blood Count 9.90 K/ul (4.8-10.8)
--- NOTE | 2025-04-22 14:10 | XRay Report ---
XR tibia fibula RT 2V CLINICAL HISTORY: Fall. Fracture. COMPARISON: None FINDINGS: Note is made of an acute oblique moderately displaced fracture through the distal diaphysi s of the right tibia, located at the junction of the middle and distal thirds of the tibial diaphysis . Fracture is displaced 1.8 cm. There is also an acute oblique minimally displaced fracture of the ne ck and proximal shaft of the right fibula. No ankle mortise widening is identified. Please note that the right ankle radiographs will be reported separately. IMPRESSION: 1. Acute moderately displaced oblique distal diaphyseal right tibial fracture. 2. Acute oblique minimally displaced fracture of the neck and proximal shaft of the right fibula. ACT 112: Negative or not required by law. Electronically signed by: Gustabo Angeles M.D. 04/22/2025 2:09 PM
--- NOTE | 2025-04-22 14:13 | XRay Report ---
RIGHT ANKLE 2 VIEWS CLINICAL HISTORY: Fall. Right ankle injury. FINDINGS: Crosstable AP and lateral views of the right ankle are obtained. No prior studies are avail able for comparison at the time of dictation. The skeletal structures are well mineralized. There is a comminuted, mildly angulated, and displaced spiral fracture through the distal tibial diaphysis. Th ere is lateral displacement of the distal fragment by approximately one shaft length, as well as over riding of fragments. Overlying soft tissue edema is observed. The distal fibula appears intact. The a nkle mortise is maintained. IMPRESSION: Distal tibial shaft fracture as above. Electronically signed by: Luis Miguel Ruffin M.D. 04/22/2025 2:11 PM
[2025-04-22 14:15] LABS: Alanine Aminotransferase 57.0 U/L (7-52); Albumin Globulin Ratio 1.1 (0.9-2); Albumin Level 4.2 gm/dl (3.4-5.0); Alkaline Phosphatase 65.0 U/L (34-104); Anion Gap 8.0 (3-11); Bilirubin,Total 0.6 mg/dl (0.2-1.0); Blood Urea Nitrogen 14.0 mg/dl (6-23); Calcium 9.2 mg/dl (8.6-10.3); Carbon Dioxide 27.0 mmol/L (21-32); Chloride 105.0 mmol/L (98-107); Creatinine Clr Calc Pharmacy 150.5 ml/min; Globulin 4.0 gm/dl (2.5-4.0); Glucose 106.0 mg/dl (70-99(Fasting)); Potassium 3.9 mmol/L (3.5-5.1); Sodium 140.0 mmol/L (136-145); Total Protein 8.2 gm/dl (6.0-8.3)
[2025-04-22] MEDS: ACETAMINOPHEN 1,000 MG/100 ML VIAL IV STA (14:32)
--- NOTE | 2025-04-22 16:13 | History & Physical Report ---
Date of Service April 22, 2025 Assessment & Plan (1) Closed fracture of right fibula and tibia: Plan: Patient has a distal third tibial shaft fracture, displaced and rotated. Conservative treatment versus surgical intervention was discussed. Surgical invention with an intramedullary rodding of his right tibia is recommended. Risks and complications of the procedure were explained to the patient include but are not limited to infection, pain, bleeding, scarring, nerve or blood vessel damage, wound problems, weakness, stiffness, incomplete relief of symptoms, hardware failure, fracture, malunion, nonunion, arthritis, blood clots, embolisms, heart attack, stroke and were explained to the patient. All questions were answered and informed consent was obtained today. Consent is on patient chart. He was placed in a long-leg posterior splint with a coaptation and tolerated this well. His leg was elevated on a stack of blankets. He was instructed to keep his leg elevated frequently and may apply ice to the lower leg to help with pain and also swelling. He is allowed to move his hip and wiggle his toes as the splint allows. He should be nonweightbearing on the right lower extremity at all times. We will plan to admit him and keep him overnight and plan for surgical intervention tomorrow midmorning or afternoon. He will be n.p.o. after midnight. He had a preoperative CBC and CMP. We will also perform a preoperative EKG to have as a baseline. IV Ancef and IV TXA have been ordered for preoperative usage within an hour of his procedure. His home medications will be continued. Has been given IV Dilaudid, oxycodone and Tylenol to use as needed for pain. He will be out of work. 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 He most likely will stay overnight 1 night after his procedure. All questions were answered. He understands and agrees with the plan. Findings will be discussed with Dr. Emerson. History of Present Illness Chief Complaint: right tibia/ankle pain x 4 hours Primary Care Provider: Nelson Mina MD Patient is a pleasant 50-year-old male here brought to the emergency room after sustaining a right ankle injury while hunting this morning. He states that he was walking through [place] and got his foot caught between potentially a rock and a a log. He states that it caused him to start falling and as he fell he twisted his leg and heard a pop. Immediate pain. He states he tried to get up multiple times until he realized that he was unable to bear weight on his right leg. He denies any numbness or tingling. Denies any previous injuries. He does have a history of having depression, hypertension and hyperlipidemia. He denies any other injuries. Allergies Allergy/AdvReac Type Severity Reaction Status Date / Time No Known Allergies Allergy Unverified 01/18/17 21:16 Home Medications Medication Instructions Recorded Confirmed Type atorvastatin 80 mg tablet 80 mg PO QAM 04/22/25 04/22/25 History metoprolol tartrate 25 mg tablet 25 mg PO AMHS 04/22/25 04/22/25 History sertraline 50 mg tablet 50 mg PO QAM 04/22/25 04/22/25 History Past Med/Surg History Problem List Closed fracture of right fibula and tibia (Acute) Hypertension (Chronic) Hypokalemia Hyponatremia Hypophosphatemia Social History Smoking Status: Never smoker Preferred Language: Iranian Feels Safe at Home: Yes Physical Exam Constitutional: WD/WN, vitals as above Eyes: PERRL, conjunctivae normal, anicteric sclerae ENMT: external ear and nose normal, oropharynx normal Neck: trachea midline, no thyromegaly Respiratory: normal respiratory effort, lungs clear to auscultation Cardiovascular: RRR, no murmur, no edema Chest (Breasts): Chest: normal inspection of chest Gastrointestinal (Abdomen): normal bowel sounds, soft, nontender, no hepatosplenomegaly Musculoskeletal: Exam bilateral upper extremities reveals full range of motion, atraumatic, distal pulses are 2+ and sensation is normal. Exam of the left leg: He has full range of motion of his hip, knee and ankle without any evidence of trauma. No skin abrasions. No ecchymosis, erythema or warmth. Distal pulses are 2+. Sensation is normal throughout the left leg. Calf is supple. Exam of the right lower extremity: Mild to moderate deformity of the mid distal third of the tibia. Ankle is held in the external rotated position. He has no ankle joint effusion appreciated. Skin is healthy and intact except for the mid area of the lower leg there is a very pinpoint red kurtis that potentially could be a new scrape or old. No active bleeding. This is not associated with his fracture site. Distal pulses are 2+. He is able to wiggle his toes with normal sensation. He can gently move his ankle but does reproduce pain in the leg. He has pain with any attempted knee range of motion due to pain in the tibia. No knee joint effusion. Skin is healthy around the knee. Calf is supple with palpation. Tolerates logrolling of his right hip. No muscle atrophy appreciated. No ambulation attempted. Results & Data Results & Data Vital Signs (Past 12 Hours) Vital Signs Temp Pulse Pulse Resp BP BP Pulse Ox 04/22/25 15:29 84 18 142/105 H 95 04/22/25 13:16 88 04/22/25 13:12 37.1 C 91 H 18 132/97 97 O2 Del Method 04/22/25 15:29 Room Air 04/22/25 13:16 04/22/25 13:12 Room Air Laboratory Results 04/22/25 Range/Units 13:28 WBC 9.90 (4.8-10.8) K/ul RBC 4.96 (4.70-6.10) M/uL Hgb 15.2 (14.0-18.0) g/dL Hct 43.8 (42.0-52.0) % MCV 88.3 (80.0-100.0) fL MCH 30.6 (25.0-34.0) pg MCHC 34.7 (32.0-36.0) g/dL RDW Std Deviation 41.0 (36.4-46.3) fL RDW Coeff of Isidoro 12.7 (11.5-14.5) % Plt Count 246 (130-400) K/uL MPV 9.9 (9.4-12.4) fL Immature Gran % (Auto) 0.3 % Neut % (Auto) 84.3 % Lymph % (Auto) 6.7 % Carolina % (Auto) 8.0 % Eos % (Auto) 0.4 % Baso % (Auto) 0.3 % Neut # (Auto) 8.35 H (1.40-6.50) K/uL Lymph # (Auto) 0.66 L (1.20-3.40) K/uL Carolina # (Auto) 0.79 H (0.11-0.59) K/uL Eos # (Auto) 0.04 (0.00-0.50) K/uL Baso # (Auto) 0.03 (0.00-0.20) K/uL Immature Gran # (Auto) 0.03 (0.01-0.20) K/uL Sodium 140 (136-145) mmol/L Potassium 3.9 (3.5-5.1) mmol/L Chloride 105 (98-107) mmol/L Carbon Dioxide 27 (21-32) mmol/L Anion Gap 8 (3-11) BUN 14 (6-23) mg/dl Creatinine 0.72 (0.6-1.4) mg/dl Est Cr Clr Drug Dosing 150.5 ml/min eGFR 112.70 BUN/Creatinine Ratio 19.4 (10-20) Glucose 106 H (70-99(Fasting)) mg/dl Calcium 9.2 (8.6-10.3) mg/dl Total Bilirubin 0.6 (0.2-1.0) mg/dl AST 36 (13-39) U/L ALT 57 H (7-52) U/L Alkaline Phosphatase 65 (34-104) U/L Total Protein 8.2 (6.0-8.3) gm/dl Albumin 4.2 (3.4-5.0) gm/dl Globulin 4.0 (2.5-4.0) gm/dl Albumin/Globulin Ratio 1.1 (0.9-2) Diagnostic Findings Ankle X-Ray 04/22/25 13:16 RIGHT ANKLE 2 VIEWS CLINICAL HISTORY: Fall. Right ankle injury. FINDINGS: Crosstable AP and lateral views of the right ankle are obtained. No prior studies are available for comparison at the time of dictation. The skeletal structures are well mineralized. There is a comminuted, mildly angulated, and displaced spiral fracture through the distal tibial diaphysis. There is lateral displacement of the distal fragment by approximately one shaft length, as well as overriding of fragments. Overlying soft tissue edema is observed. The distal fibula appears intact. The ankle mortise is maintained. IMPRESSION: Distal tibial shaft fracture as above. Electronically signed by: Luis Miguel Ruffin M.D. 04/22/2025 2:11 PM Tibia/Fibula X-Ray 04/22/25 13:16 XR tibia fibula RT 2V CLINICAL HISTORY: Fall. Fracture. COMPARISON: None FINDINGS: Note is made of an acute oblique moderately displaced fracture through the distal diaphysis of the right tibia, located at the junction of the middle and distal thirds of the tibial diaphysis. Fracture is displaced 1.8 cm. There is also an acute oblique minimally displaced fracture of the neck and proximal shaft of the right fibula. No ankle mortise widening is identified. Please note that the right ankle radiographs will be reported separately. IMPRESSION: 1. Acute moderately displaced oblique distal diaphyseal right tibial fracture. 2. Acute oblique minimally displaced fracture of the neck and proximal shaft of the right fibula. ACT 112: Negative or not required by law. Electronically signed by: Gustabo Angeles M.D. 04/22/2025 2:09 PM Code Status & VTE Plan VTE Prophylaxis Plan VTE Prophylaxis will be ordered: Yes Supervising Physician Co-Signing Physician Notes I saw and examined the patient, independently interpreted his x-rays, formulated the plan and performed the substantive portion of the visit. Agree with above note. Admit to hospital overnight, plan for surgery tomorrow, NPO after midnight tonight. Elevate leg on pillows. (1) Closed fracture of right fibula and tibia Encounter type: initial encounter Qualified Code(s): S82.201A - Unspecified fracture of shaft of right tibia, initial encounter for closed fracture; S82.401A - Unspecified fracture of shaft of right fibula, initial encounter for closed fracture
[2025-04-22] MEDS ORDERED: HYDROmorphone INJ 0.5 MG/0.5 ML SYR IV PRN (18:20)
[2025-04-22] MEDS ORDERED: HYDROmorphone INJ 1 MG/ML SYRINGE IV PRN (18:20)
[2025-04-22] MEDS ORDERED: diphenhydrAMINE 50 MG/ML VIAL IV PRN (18:20)
[2025-04-22] MEDS ORDERED: SODIUM CHLORIDE 0.9% 1,000 ML IV SCH (18:20)
[2025-04-22] MEDS ORDERED: ONDANSETRON INJ 2 MG/ML 2 ML VIAL IV PRN (18:30)
[2025-04-22] MEDS: SIMVASTATIN 20 MG TAB PO SCH (20:21)
[2025-04-22] MEDS: LABETALOL HCL 100 MG TAB PO SCH (20:21)
[2025-04-22] MEDS: ACETAMINOPHEN 500 MG TAB PO SCH (22:19)
[2025-04-23] MEDS: LOSARTAN POTASSIUM 50 MG TAB PO SCH (08:35)
[2025-04-23] MEDS ORDERED: MIDAZOLAM HCL 1 MG/ML 2ML VIAL ONE (10:11)
[2025-04-23] MEDS ORDERED: ROCURONIUM BROMIDE 10 MG/ML 5 ML VIAL IV ONE ×2 (10:14→12:29)
[2025-04-23] MEDS ORDERED: LIDOCAINE 2% 2 ML VIAL/AMP(20MG/ML) INFIL ONE ×2 (10:14)
[2025-04-23] MEDS ORDERED: DEXAMETHASONE SOD INJ 4 MG/ML VIAL ONE ×2 (10:14)
[2025-04-23] MEDS ORDERED: ONDANSETRON INJ 2 MG/ML 2 ML VIAL ONE (10:14)
[2025-04-23] MEDS ORDERED: PROPOFOL IV EMULSION 10 MG/ML 20 ML VIAL IV ONE (10:14)
--- NOTE | 2025-04-23 10:29 | Orthopedic Progress Note ---
Date of Service April 23, 2025 Assessment & Plan (1) Closed fracture of right fibula and tibia: Plan: Patient is scheduled for IM kristy today with Dr Emerson Consent in chart Keep NPO Continue with pain control including tylenol, oxycodone, dilaudid as needed Ice and elevate Keep splint on and intact Non weight bearing Pre op orders placed He likely will stay a night in the hospital Hold anticoags for surgery, after surgery can start asa [id number] for dvt phx. Admission and Anticipated Discharge Date Admission Date: April 22, 2025 Subjective Pt seen and examined bedside today with and son. Reports that he is overall doing okay. His pain is controlled. Splint is fitting appropriately. No questions or concerns this morning. Eager for surgery. Physical Exam Physical Exam: Right lower extremity: Splint fitting appropriately, elevated and with ice. Patient able to freely move all his fingers. Sensation in tact distally to light touch. Color pink and temperature warm. Results & Data Vital Signs (Past 12 Hours) Vital Signs Temp Pulse Resp BP Pulse Ox O2 Del Method 04/23/25 07:16 36.6 C 103 H 16 135/85 95 Room Air (1) Closed fracture of right fibula and tibia Encounter type: initial encounter Qualified Code(s): S82.201A - Unspecified fracture of shaft of right tibia, initial encounter for closed fracture; S82.401A - Unspecified fracture of shaft of right fibula, initial encounter for closed fracture
[2025-04-23] MEDS ORDERED: ATROPINE SULFATE 0.1 MG/ML 10ML SYR IV PRN (11:13)
[2025-04-23] MEDS ORDERED: ONDANSETRON INJ 2 MG/ML 2 ML VIAL IV PRN (11:13)
--- NOTE | 2025-04-23 11:13 | Anesthesiology Consultation ---
Date of Service April 23, 2025 Assessment & Plan Chart Review Chart Review: Acceptable Risk for Surgery Consults Requested none ASA ASA2 Proposed Anesthesia Anesthesia Type: General Risk / Benefits Reviewed With: PT / POA / Parent / Guardian, Accepts Plan and Informed Consent Obtained History Surgery Operation Date: 04/23/25 11:30 Proposed Procedures p Right IM Shola Primo - Nelson Emerson MD Height/Weight Height: 5 ft 11 in Weight: 99 kg Allergies Allergy/AdvReac Type Severity Reaction Status Date / Time No Known Allergies Allergy Unverified 01/18/17 21:16 Medications Home Medications Medication Instructions Recorded Confirmed Last Taken atorvastatin 80 mg tablet 80 mg PO QAM 04/22/25 04/22/25 Unknown metoprolol tartrate 25 mg tablet 25 mg PO AMHS 04/22/25 04/22/25 Unknown sertraline 50 mg tablet 50 mg PO QAM 04/22/25 04/22/25 Unknown Active Medications Generic Name Dose Route Start Last Admin Trade Name Freq PRN Reason Stop Dose Admin Acetaminophen 1,000 mg 04/22/25 22:00 04/23/25 05:21 Acetaminophen 500 Mg Tab PO 05/22/25 21:59 1,000 mg Q8H TORSTEN Administration Labetalol HCl 100 mg 04/22/25 21:00 04/23/25 08:34 Labetalol Hcl 100 Mg Tab PO 05/22/25 20:59 Not Given BID TORSTEN Losartan Potassium 100 mg 04/23/25 09:00 04/23/25 08:35 Losartan Potassium 50 Mg Tab PO 05/23/25 08:59 Not Given DAILY TORSTEN Simvastatin 20 mg 04/22/25 21:00 04/22/25 20:21 Simvastatin 20 Mg Tab PO 05/22/25 20:59 20 mg QPM TORSTEN Administration NPO Date Last Intake of Fluids: 04/22/25 Time Last Intake of Fluids: 23:55 Last Intake of Fluids Comment: sip of water 0521 w/med Date Last Intake of Solids: 04/22/25 Time Last Intake of Solids: 21:30 Social History Smoking Status: Never smoker Hx Alcohol Use: No Hx Substance Use: No Physical Exam Vital Signs Last Vital Signs Temp 36.8 C 04/23/25 10:45 Pulse 122 H 04/23/25 10:45 Resp 18 04/23/25 10:45 BP 144/91 H 04/23/25 10:45 Pulse Ox 95 04/23/25 10:45 O2 Del Method Room Air 04/23/25 10:45 Constitutional no acute distress ENMT Mouth: + poor dentition Thyromental Distance: > or= 3.5 Finger Breadths Mallampati Class: II Neck normal visual inspection Respiratory normal respiratory effort Cardiovascular Rate/Rhythm: regular rate and regular rhythm Musculoskeletal Spine: normal cervical ROM right leg in splint Psychiatric Orientation: alert and oriented x 3 Testing Laboratory Results 04/22/25 13:28 04/22/25 13:28
[2025-04-23] MEDS: TRANEXAMIC ACID / 0.7% NACL 1,000 MG/100 ML BAG IV ONE (11:40)
[2025-04-23] MEDS ORDERED: PHENYLEPHRINE 100MCG/ML 5ML SYR ONE (11:58)
[2025-04-23] MEDS ORDERED: SUGAMMADEX SODIUM 200 MG/2 ML VIAL IV ONE ×2 (12:15→14:04)
[2025-04-23] MEDS ORDERED: PHENYLEPHRINE HCL 10 MG/ML VIAL ONE (12:34)
[2025-04-23] MEDS: BUPIVACAINE/EPINEPHRINE 0.5% MPF 1:200,000 30 ML VIAL ONE (13:40)
--- NOTE | 2025-04-23 13:49 | Operative Report ---
Post Operative Report Pre & Post Diagnosis Operation Date: 04/23/25 11:30 Pre-Op Diagnosis: Closed fracture of right fibula and tibia Post-Op Diagnosis: Closed fracture of right fibula and tibia I identified the patient and participated in the time-out.: Yes Procedure Operation Date: 04/23/25 11:30 Actual Procedures Close reduction, intramedullary nailing for right tib-fib fracture- Nelson Emerson MD Surgeon Nelson Emerson MD Brim Flexer Jax Hunter PA-C. No resident or fellow was available to assist. Estimated Blood Loss 50 Findings Consistent with Post-Op Diagnosis Specimens None Anesthesia Type General Complications none Disposition Disposition: Recovery Room Indications 50-year-old male, was hunting in the [employer] yesterday when his foot got stuck between a log and a rock twisting his leg. He had immediate onset of pain and deformity in his leg. Was brought to the emergency room where x-rays demonstrated a spiral fracture of the tibia with a proximal fibula fracture with displacement. He was reduced and splinted in the emergency room yesterday. I had a long discussion with the patient and his family about his diagnosis and treatment options. Surgery was indicated to improve pain, reduce the risk of malunion, and promote function. I had a long discussion with him about the risks and benefits of surgery, alternatives to surgery, and expected outcomes. After reviewing all these he elected to proceed with surgery. All questions were answered. Informed consent was signed. Description of Procedure Patient was identified in the preoperative holding area where his surgical site is already been marked. He was brought back to the operating room where he moved onto the operating room table and general anesthesia was administered. A sandbag was placed to serve as a bump underneath the ipsilateral hip. The leg was placed on bone foam. All bony prominences were padded. Perioperative antibiotics and 1 g of IV tranexamic acid were administered. He was prepped and draped in usual sterile fashion. Prior to incision a multidisciplinary timeout was called. All in the room in agreement. I began by making a 4 cm long incision longitudinally centered over the medial aspect of the patella. I dissected down through subcutaneous tissues to the level of the fascia. Full-thickness flaps were raised above the fascia. I then made an arthrotomy along the medial border of the patellar tendon extending about 1 cm into the quadriceps. This allowed me to subluxate the patella medially. I then was able to place the guide down through the knee and optimize the position of the entry guidewire on the AP and lateral fluoroscopic views. This was then driven down to the appropriate depth. The entry reamer was carefully placed down through the guide and our entry reaming was made. I then proceeded to place the ball-tipped guidewire down into the tibia. This was advanced to just above the level of the fracture. Fracture was then anato mically reduced. The ball-tipped guidewire was advanced across the fracture and down to the center center position at the ankle. We then took our measurement which was approximately 372 mm. I elected to use a 360 mm long nail. I then began reaming with the 8.5 mm cutting reamer. I reamed up to a 10-1/2 diameter. This gave us excellent chatter as the reamer was passed through the isthmus. Great care was taken to keep the guide in place proximally so as to protect the cochlea while the reamers were passed in and out of the tibia. Once were done reaming the 9 mm diameter by 360 mm length nail was opened up. This was impacted down to the level to fracture site. We confirmed we had an anatomic reduction and then advanced the nail across the fracture site down to the physeal scar. Once this was complete the ball-tipped guidewire was removed. Using perfect circles technique 3 distal cross locking screws were placed, 2 medial to lateral, and 1 anterior to posterior. For each of these we took great care to spread the soft tissues and protect any neurovascular structures while drilling and placing the screws. These were Synthes headless screws. Next, the nail was back slapped to compress the fracture. Once this is complete to medial to lateral cross lock screws were placed in the proximal aspect of the nail. 1 was in static mode and the second 1 was in dynamic mode. The outrigger device was then removed from the proximal aspect of the nail. I elected to use a 5 mm end cap. This was placed without difficulty. Final fluoroscopic images were obtained. Wounds were irrigated out with copious amounts of normal saline. I then began to close. The arthrotomy was closed with a running 0 Vicryl suture. Deep dermis at the patellar incision was closed with 2-0 Vicryl suture. [place] were used for the skin. Elizabeth were also used for his cross lock screw incisions. Sterile dressings were applied followed by a plaster posterior and U ankle splint with the knee left free. He was then awoke from anesthesia and transferred to the cover room in stable condition. Postoperative course: Patient will be readmitted to the hospital. He will elevate his leg overnight. He will be nonweightbearing for the next 2 weeks. 2 weeks from now we will remove his splint and his elizabeth. He will be allowed to begin touchdown weightbearing with crutches at that time advancing to full weightbearing as tolerated over the next 2 weeks. Early knee range of motion is emphasized to avoid stiffness. Aspirin for DVT prophylaxis. I attest to the content of the Intraoperative Record and any orders documented therein. Any exceptions are noted below.
--- NOTE | 2025-04-23 14:00 | Fluoroscopy Report ---
FL tibia/fibula RT 2V CLINICAL HISTORY: RT TIBIAL NAIL COMPARISON STUDY: 04/22/2025 FLUOROSCOPY TIME: 2 minutes 14 seconds FLUOROSCOPY IMAGES: 5 EXPOSURE DOSE: 5.5 mGy FINDINGS: Fluoroscopy was provided for right tibial nail. IMPRESSION: Intraoperative fluoroscopy. ACT 112: Negative or not required by law. Electronically signed by: Ellis Chamberlain M.D. 04/23/2025 1:59 PM
--- NOTE | 2025-04-23 14:26 | Operative Report ---
Post Operative Report Pre & Post Diagnosis Operation Date: 04/23/25 11:30 Pre-Op Diagnosis: Closed fracture of right fibula and tibia Post-Op Diagnosis: Closed fracture of right fibula and tibia I identified the patient and participated in the time-out.: Yes Procedure Operation Date: 04/23/25 11:30 Actual Procedures p Right Intramedullary Shola Tibia(Right) - Nelson Emerson MD Surgeon ELIESER Emerson MD Banquet Captain Jax Hunter PA-C. No resident or fellow was available to assist. Estimated Blood Loss 50 Findings Consistent with Post-Op Diagnosis see operative report Specimens none Drains none Complications none Disposition Accompanied Patient To Recovery: Yes Indications This 50-year-old male presented through the ED after sustaining a [place] distal tibial fracture. He elected to proceed with surgical intervention after being educated about potential risks and outcomes. Preoperative imaging was obtained. Description of Procedure The patient was taken the operating room where he was given general anesthesia. He was prepped and draped in the usual sterile fashion. Please see Dr. Emerson's operative report for specifics of the procedure. I was present for the entire case from initial patient positioning through final wound closure. Assistance was provided in tissue retraction, hemostasis, hardware placement, fracture reduction, and final wound closure. The patient was taken to the recovery room in satisfactory condition. I attest to the content of the Intraoperative Record and any orders documented therein. Any exceptions are noted below.
[2025-04-23] MEDS ORDERED: MAGNESIUM HYDROXIDE SUSP 30 ML UDC PO PRN (15:08)
[2025-04-23] MEDS ORDERED: ALUMINUM/MAGNESIUM SUSP 30 ML UDC PO PRN (15:08)
[2025-04-23] MEDS ORDERED: NALOXONE HCL 0.4 MG/1 ML VIAL/CARP IV PRN (15:08)
[2025-04-23] MEDS ORDERED: TAMSULOSIN HCL 0.4 MG CAP PO PRN (15:08)
[2025-04-23] MEDS ORDERED: METOCLOPRAMIDE HCL INJ 5 MG/ML 2 ML VIAL IV PRN (15:08)
--- NOTE | 2025-04-23 15:14 | Anesthesiology Progress Note ---
Date of Service April 23, 2025 Anesthesia Post Procedure Vital Signs Vital Signs: Temp Pulse Pulse Resp BP BP Pulse Ox 04/23/25 14:50 36.7 C 108 H 12 136/86 95 04/23/25 14:40 107 H 16 142/87 H 96 04/23/25 14:30 105 H 14 148/90 H 100 04/23/25 14:20 116 H 16 149/85 H 98 04/23/25 14:10 36.8 C 111 H 12 146/84 H 97 04/23/25 10:45 36.8 C 122 H 18 144/91 H 95 04/23/25 07:16 36.6 C 103 H 16 135/85 95 04/22/25 22:15 37.2 C 94 H 14 114/72 94 04/22/25 19:15 37 C 103 H 18 134/76 96 04/22/25 18:41 36.7 C 98 H 16 119/57 L 96 04/22/25 17:00 122 H 18 141/86 H 94 04/22/25 15:29 84 18 142/105 H 95 O2 Del Method O2 Flow Rate 04/23/25 14:50 Room Air 04/23/25 14:40 Oxymask 2 04/23/25 14:30 Oxymask 4 04/23/25 14:20 Oxymask 4 04/23/25 14:10 Oxymask 6 04/23/25 10:45 Room Air 04/23/25 07:16 Room Air 04/22/25 22:15 Room Air 04/22/25 19:15 Room Air 04/22/25 18:41 Room Air 04/22/25 17:00 Room Air 04/22/25 15:29 Room Air Pain Intensity Right Leg: Pain Intensity: 4 Transfer of Care Handoff Completed per policy Notes Mental Status: alert / awake / arousable Patient Amnestic to Procedure: Yes Nausea / Vomiting: adequately controlled Pain: adequately controlled Airway Patency, RR, SpO2: stable & adequate BP & HR: stable & adequate Hydration State: stable & adequate Anesthetic Complications: no major complications apparent
[2025-04-23] MEDS: SODIUM CHLORIDE 0.9% 1,000 ML IV SCH (15:29)
[2025-04-23] MEDS: TRANEXAMIC ACID / 0.7% NACL 1000MG/100ML BAG IV ONE (15:34)
--- NOTE | 2025-04-23 15:57 | Orthopedic Progress Note ---
Date of Service April 23, 2025 Assessment & Plan (1) Closed fracture of right fibula and tibia: Plan: Patient can have a regular diet. Continue with pain control including tylenol, oxycodone, dilaudid as needed Ice and elevate Keep splint on and intact 24 hours of postoperative Ancef PT OT tomorrow. Work on knee range of motion. nonweightbearing on crutches. Start asa 81BID for dvt phx Anticipate discharge home tomorrow. Admission and Anticipated Discharge Date Admission Date: April 22, 2025 Subjective Patient underwent IM nailing of his right tib-fib fracture earlier today. He is seen on the floor. He reports he is comfortable. No side effects from the medication of the anesthesia. Denies numbness or tingling in his toes. Physical Exam Physical Exam: On exam he is sitting comfortably in bed in no acute distress. Right leg exam shows his splint is fitting him well. His exposed toes are warm and well- perfused. He is sensory intact to light touch over the toes. He wiggles all of his toes. No evidence of compartment syndrome. Results & Data Vital Signs (Past 12 Hours) Vital Signs Temp Pulse Pulse Resp BP Pulse Ox O2 Del Method 04/23/25 15:34 37 C 110 H 16 138/80 92 Room Air 04/23/25 15:14 37.1 C 108 H 14 152/87 H 91 Room Air 04/23/25 14:50 36.7 C 108 H 12 136/86 95 Room Air 04/23/25 14:40 107 H 16 142/87 H 96 Oxymask 04/23/25 14:30 105 H 14 148/90 H 100 Oxymask 04/23/25 14:20 116 H 16 149/85 H 98 Oxymask 04/23/25 14:10 36.8 C 111 H 12 146/84 H 97 Oxymask 04/23/25 10:45 36.8 C 122 H 18 144/91 H 95 Room Air 04/23/25 07:16 36.6 C 103 H 16 135/85 95 Room Air O2 Flow Rate 04/23/25 15:34 04/23/25 15:14 04/23/25 14:50 04/23/25 14:40 2 04/23/25 14:30 4 04/23/25 14:20 4 04/23/25 14:10 6 04/23/25 10:45 04/23/25 07:16 (1) Closed fracture of right fibula and tibia Encounter type: initial encounter Qualified Code(s): S82.201A - Unspecified fracture of shaft of right tibia, initial encounter for closed fracture; S82.401A - Unspecified fracture of shaft of right fibula, initial encounter for closed fracture
[2025-04-23] MEDS: ASCORBIC ACID 500 MG TAB PO SCH (17:29)
[2025-04-23] MEDS: FERROUS GLUCONATE 324 MG TAB PO SCH (17:29)
--- NOTE | 2025-04-23 18:45 | Electrocardiogram Report ---
Test Reason : Blood Pressure : */* mmHG Vent. Rate : 98 BPM Atrial Rate : 98 BPM P-R Int : 180 ms QRS Dur : 76 ms QT Int : 330 ms P-R-T Axes : 39 26 11 degrees QTcB Int : 421 ms Normal sinus rhythm Normal ECG When compared with ECG of 18-Jan-2017 22:51, No significant change was found Confirmed by Karthik Meng ([id number]) on 04/23/2025 6:44:47 PM Referred By: REFERRED SELF Confirmed By: Karthik Meng
[2025-04-23] MEDS: SENNA 8.6 MG TAB PO SCH (20:41)
[2025-04-23] MEDS: METOPROLOL TARTRATE 25 MG TAB PO SCH (21:42)
[2025-04-23] MEDS: DOCUSATE SODIUM 100 MG CAP PO SCH (21:47)
[2025-04-24 06:51] LABS: Hematocrit (blood only) 37.2 % (42.0-52.0); Hemoglobin 12.8 g/dL (14.0-18.0); Mean Corpuscular Hemoglobin 30.8 pg (25.0-34.0); Mean Corpuscular Volume 89.4 fL (80.0-100.0); Platelet Count 240 K/uL (130-400); RDW Standard Deviation 41.6 fL (36.4-46.3); Red Blood Count 4.16 M/uL (4.70-6.10); White Blood Count 8.80 K/ul (4.8-10.8)
[2025-04-24 07:21] LABS: Anion Gap 6.0 (3-11); Blood Urea Nitrogen 12.0 mg/dl (6-23); Calcium 9.0 mg/dl (8.6-10.3); Carbon Dioxide 27.0 mmol/L (21-32); Chloride 104.0 mmol/L (98-107); Creatinine Clr Calc Pharmacy 164.1 ml/min; Glucose 105.0 mg/dl (70-99(Fasting)); Potassium 3.8 mmol/L (3.5-5.1); Sodium 137.0 mmol/L (136-145)
[2025-04-24 09:11] VITALS: BP 132/77; PULSE 90; RESP 18; O2SAT 95
[2025-04-24 09:15] VITALS: TEMP 98.6
[2025-04-24] MEDS: ASPIRIN 81 MG ECTAB PO SCH (09:29)
[2025-04-24] MEDS: SERTRALINE HCL 50 MG TABLET PO SCH (09:29)
[2025-04-24] MEDS: MULTIVITAMIN TAB PO SCH (09:30)
--- NOTE | 2025-04-24 10:15 | Orthopedic Progress Note ---
Date of Service April 24, 2025 Assessment & Plan (1) Closed fracture of right fibula and tibia: Plan: The patient was educated regarding today's findings. Conservative care measures were discussed. He would like to go home today. We will see how he does with PT and crutch training. If he does well, he can be discharged to home. Importance of icing and elevating leg frequently was discussed with he and his . Prescription for oxycodone 5 mg was sent to his pharmacy. Continue with DVT prophylaxis using aspirin 81 mg twice daily x 4 weeks at home. Follow-up in the office in 2 weeks for staple removal. Strict nonweightbearing on the right leg. Call with any other concerns. Admission and Anticipated Discharge Date Admission Date: April 22, 2025 Subjective This 50-year-old male is seen today in his room. He is 1 day status post right IM nailing of his tibia. His is present. He states he is doing well. He has not used any pain medication other than Tylenol since yesterday. He denies any chest pain, shortness of breath, nausea, vomiting, or abdominal pain. He has not been out of bed yet. He would like to go home today. No other complaints. Review of Systems Review of Systems: Unchanged from yesterday. Physical Exam Physical Exam: General: Well-developed, well-nourished, middle-aged male, in no acute distress. Laying in bed. Alert and oriented. Conversive. Skin: Warm and dry with good turgor. No rashes. Intact capillary refill to the right toes. Postsurgical splint is in place on the right leg. It is fitting well. He has no drainage. Musculoskeletal: The patient has intact motor function of his toes. He is able to gently flex and extend his knee as well as internally and externally rotate his hip. Neurologic: Gross sensation is intact across each of the toes of the right foot by soft touch. Results & Data Vital Signs (Past 12 Hours) Vital Signs Temp Pulse Resp BP BP Pulse Ox O2 Del Method 04/24/25 09:00 37 C 90 18 132/77 95 Room Air 04/24/25 09:00 37.3 C 90 18 132/77 132/77 95 Room Air 04/24/25 03:33 36.9 C 86 14 99/69 L 94 Room Air 04/23/25 23:14 36.8 C 98 H 16 111/71 94 Room Air Laboratory Results CBC obtained this morning shows a white count of 8.8. H&H of 12.8 and 37.2. Normal platelets. Normal electrolytes. Normal BUN and creatinine at 12 and 0.66. Glucose this morning 105. (1) Closed fracture of right fibula and tibia Encounter type: initial encounter Qualified Code(s): S82.201A - Unspecified fracture of shaft of right tibia, initial encounter for closed fracture; S82.401A - Unspecified fracture of shaft of right fibula, initial encounter for closed fracture
--- NOTE | 2025-04-25 21:45 | Discharge Summary ---
Date of Service April 24, 2025 Admission HPI Per Admitting Provider This 50-year-old male with a history of depression, hypertension, and elevated lipids, was seen in consultation after sustaining a right ankle injury while hunting on 04/22. He states that he was walking through the [place] and got his foot caught between a rock and a log. He states that it caused him to start falling and as he fell he twisted his leg and heard a pop. There was immediate pain. He states he tried to get up multiple times until he realized that he was unable to bear weight on his right leg. He denies any numbness or tingling. Denies any previous injuries. He elected to proceed with surgical intervention after being educated about potential risks and outcomes. Preoperative imaging was obtained in the ED. Principal Diagnosis Right distal tibial fracture Discharge Exam General: Well-developed, well-nourished, middle-aged male, in no acute distress. Laying in bed. Alert and oriented. Conversive. Skin: Warm and dry with good turgor. No rashes. Intact capillary refill to the right toes. Postsurgical splint is in place on the right leg. It is fitting well. He has no drainage. Musculoskeletal: The patient has intact motor function of his toes. He is able to gently flex and extend his knee as well as internally and externally rotate his hip. Neurologic: Gross sensation is intact across each of the toes of the right foot by soft touch. Discharge Data Allergies Allergy/AdvReac Type Severity Reaction Status Date / Time No Known Allergies Allergy Unverified 01/18/17 21:16 Consultations Orthopedic surgery Procedures Performed Operation Date: 04/23/25 11:30 Actual Procedures p Right Intramedullary Shola Tibia(Right) - Nelson Emerson MD Ordered Studies Intraoperative fluoroscopy images show a well reduced distal tibial fracture with intramedullary shola placement and locking screws Hospital Course (1) Closed fracture of right fibula and tibia: The patient was admitted through the ED on 04/22/2025. Risks and benefits of surgical invention were discussed. He elected to proceed with surgical intervention in hopes of improving his pain, function, and outcome. He remained stable the rest of that day. Pain was controlled adequately. His leg was splinted to provide external support. On 04/23 the patient underwent successful IM shola placement in the right tibia. He was taken to the recovery room in satisfactory condition. Postsurgical films revealed an excellent reduction of his distal tibial fracture. Vitals remained stable. Did well for the rest of the evening. On the morning of 04/24. The patient was reevaluated. He had minimal pain. Vitals remained stable. Lab work, including CBC and PRP, was unremarkable. He was able to participate in physical therapy and Occupational Therapy. He was strict nonweightbearing on the right leg. The patient desired to be discharged home. His was in agreement. Importance of icing and elevating leg frequently was discussed with he and his . Prescription for oxycodone 5 mg was sent to his pharmacy. Continue with DVT prophylaxis using aspirin 81 mg twice daily x 4 weeks at home. Follow-up in the office in 2 weeks for staple removal. Strict nonweightbearing on the right leg. Written discharge instructions were provided. Call the office with any other concerns. Total Time Total Time Spent Total Time Spent (In Minutes): 20 Discharge Plan Discharge Items Patient Disposition: Home - Self-Care Reason For Visit: RIGHT TIBIA FRACTURE Discharge Diagnosis: Right tibia s/p IM nail placement Condition on Discharge: Good Activity: Per Instructions section Lifting: Wait until after follow-up appointment Bathing: Keep incision dry Sexual Activity: Wait until after follow-up appointment Exercise/Sports: Wait until after follow-up appointment Driving/Machine Use: No driving Weightbearing: Right non-weightbearing Non-emergency contact: Surgeon Call non-emergency contact if: you have any medication questions, your pain is not controlled, your temperature is above 101, your wound has increased redness, your wound has increased drainage and your wound pain has increased Follow-up/Referrals: Nelson Mina MD [Primary Care Provider] - Jax Hunter PA-C [Physician Cryogenics Repairer] - 05/09/25 11:15 am Diet: Regular Addtl Attending Provider Instructions: Post-operative Instructions Dear Patient and Family/Friends, Before you are discharged from the hospital, it is important to know what to expect when you get home after surgery. To that end, we have created this sheet of discharge instructions which covers many commonly asked questions. Make sure you go through this sheet in its entirety with your nurse before you are discharged. Please note that we will go over the specifics of your surgery and recovery when you return for your first post-operative visit. Sincerely, Dr. Emerson Pain Expect to be in a fair amount of pain after surgery. Remember, our goal is not to eliminate your pain, but to make it tolerable. It is a good idea to stay ahead of your pain by taking the medications you were prescribed once you get home. Typically, the pain starts improving 3-7 days after surgery. You should start weaning off the narcotic pain medication (oxycodone, hydrocodone, hydromorphone, morphine) as soon as your pain improves. Please call our office if your pain is not adequately controlled. Ice Ice your operative site at least 5 times a day for 15-30 minutes at a time. Make sure you have a thin cloth between the ice or cooling unit and your skin to prevent addison bite. This is especially important if you received a nerve block. Continue icing your operative site for the first 5-7 days after surgery, then as needed. Diet/Nausea/Vomiting Start by drinking clear liquids and eating crackers. If you can tolerate this, then you may resume your normal diet. If you feel nauseated or vomit, take Zofran/ondansetron (if prescribed). Please call our office if you have intractable nausea or vomiting, or, if after hours, you may go to the Emergency Room for help. Constipation Constipation is a common side effect of narcotic pain medication. If you have not had a bowel movement within 2 days after surgery, we recommend purchasing an over the counter laxative such as Milk of Magnesia, Dulcolax, or Miralax from a local pharmacy, and taking it as instructed. Call our clinic if any questions. Slings and Braces If you were placed in a splint, it must be worn at all times, including sleep. It should not be removed. Nerve block The anesthesia team sometimes places a nerve block to help with post-operative pain control. This results in significant numbness and inability to move the extremity. The nerve block usually wears off in 8-12 hours, but sometimes can last up to 24 hours. Please call our office if you are still unable to move your extremity after 24 hours, unless you received a pain pump to take home. Nerve blocks typically wear off quickly, so start taking pain medication as soon as you start feeling soreness near your surgical site. Weight bearing and Range of Motion. Do not bear any weight through your operative extremity after surgery. If you had upper extremity surgery, do not lift anything with that arm. If you are in a splint, keep it in place until your follow-up. We will discuss your weight bearing, range of motion, and lifting restrictions in detail at your first post- operative appointment. Physical therapy You will be given a prescription for physical therapy or occupational therapy at your first post-operative appointment. Typically, patients start therapy within 2 week of surgery. You can practice knee flexion and extension to prevent stiffness until you are seen in the office. Wound care and showering We will inspect your wound at your first post-operative visit, and may do a dressing change at that time. It is normal to see some dried blood on the dressing. Do not remove your dressing, paper strips or sutures yourself unless you are given permission. Showering is allowed the day after surgery. Do not scrub or remove any dressings. The wound should not be submerged underwater (i.e. in a bathtub or pool) until 4 weeks after surgery NUZHAT stockings If you were given white stockings, these are to be worn at all times except to shower (on both legs) for the first 2 weeks after surgery. Driving You may not drive while taking narcotic pain medication or while in a cast, splint, sling or brace. You, the patient, need to make the final determination about when you are safe to drive, however, the earliest you may consider driving after surgery is below: Hip,/Knee/Ankle Surgery: 4 weeks Fracture repair: 6 weeks Return to Work Your return to work depends on what surgery was done and what type of work you do. Please bring any paperwork your employer needs completed to your first post-operative visit. Also, bring a description of your job duties, as this helps us to understand what risks you may face at work. Travel Avoid long distance travel (greater than 1 hour) in airplanes and cars for the first 6 weeks after surgery. If you must travel, you need to have a Doppler ultrasound done before you travel to rule out a blood clot in your legs. Follow-up You should have a follow-up appointment already scheduled 2 weeks after surgery. If not, please contact our office to make this appointment before you leave the hospital. When to call the office It is normal to have swelling and bruising in the limb that was operated on. This will improve with time. It is also normal to have fevers for the first 2 days after surgery. Reasons you should call your doctor include: Uncontrolled pain; Nausea, vomiting, or constipation that does not improve with medication; Fevers over 101.5, chills, sweats; Drainage or bleeding from the wound; Foul odor; Spreading areas of redness; Any other concerns. Contact Information Please call Dr. Emerson's office at [phone] with any concerns. Blood clot prevention Please take aspirin 81 mg 2 times per day for the next 4 weeks to prevent blood clots in the lower leg Pending Studies at Discharge: No Stand-Alone Forms: My [facility] [employer] Sn[employer], Smoking Cessation Medications and DC Order Prescriptions: New oxycodone 5 mg tablet 10 mg PO Q6H PRN (Reason: pain) Qty: 18 0RF Rx Instructions: initial script Continued atorvastatin 80 mg tablet 80 mg PO QAM sertraline 50 mg tablet 50 mg PO QAM metoprolol tartrate 25 mg tablet 25 mg PO [facility] Discharge Orders: Discharge Order (Routine); Ordered 04/24/25 Ordered By: Jax Harvey/Other Patient Handouts: How [employer] [facility] Admission Data Admit Date/Time: 04/22/25 16:00 Attending Provider: Nelson Emerson Admit Provider: Nelson Emerson Primary Care Provider: Nelson Mina Other Providers: Nelson Emerson Other Interventions: Discharge Summary Assessment (RN) Last Done: 04/24/25 12:28
== END 2025-04-24 13:19 | disposition home or self-care (01) | DRG 494 ==
LOC: ED 13:04 → 3W 16:00